=== PATIENT | female | born 1945 | race Caucasian/White ===

== ENCOUNTER 2021-10-02 17:53 | Emergency (ER) | payer OTHER, SELFPAY ==
--- NOTE | ~2021-10-02 | CT_ITS ---
EXAMINATION: NONCONTRAST HEAD CT NONCONTRAST MAXILLOFACIAL CT NONCONTRAST CERVICAL SPINE CT INDICATION INFORMATION: Fall. Pain. COMPARISON: None TECHNIQUE: Separate noncontrast CT examinations of the head, maxillofacial bones, and cervical spine were performed. Coronal and sagittal images were created for each examination at the technologist workstation. This CT examination was performed using dose optimization techniques as appropriate, variously including the following: *Automated exposure control *Adjustment of mA and/or kV according to patient size (this includes techniques or standardized protocols for targeted exams where dose is matched to indication/reason for exam; i.e. extremities or head) *Use of iterative reconstruction technique DLP: 1320 mGy-cm FINDINGS: Head: There is no evidence of acute intracranial hemorrhage or territorial infarction. No abnormal mass effect or midline shift is seen. Trejo to white matter differentiation is well preserved. No extra-axial fluid collections are identified. No hydrocephalus. Proportional prominence of the ventricles and sulcal spaces is consistent with mild volume loss. Patchy periventricular and deep white matter hypoattenuation is consistent with mild small vessel ischemic changes. No acute soft tissue abnormality. No calvarial fracture. The mastoid air cells are well aerated. Maxillofacial: Mild left supraorbital soft tissue swelling. No acute maxillofacial fractures are seen. The pterygoid plates are intact. Lamina papyracea are intact. The zygomatic arches are intact. The nasal bone appears intact. The orbital rims are intact. The frontal, maxillary, ethmoid, and sphenoid sinuses are well aerated. The uncinate process is normal bilaterally. The infundibula and middle meati are patent. The nasal septum deviates to the left. The mandibular heads are well-seated in the condylar fossa. The orbits demonstrate a normal appearance bilaterally. The globes are intact, and there are no suspicious findings to suggest retrobulbar hemorrhage. Cervical spine: There is anatomic alignment of the vertebral bodies and posterior elements. The atlantoaxial and atlantooccipital articulations are intact. Vertebral body heights are maintained. There is multilevel intervertebral disc space narrowing with endplate osteophyte formation and facet arthropathy. There is anterior osseous bridging. No evidence of acute fracture. No prevertebral soft tissue swelling. Visualized portions of the lung apices are unremarkable. The thyroid gland is unremarkable. CT/CT cervical spine wo con IMPRESSION: 1. No acute intracranial finding. 2. Left supraorbital soft tissue swelling. No acute maxillofacial fracture. 3. No fracture or malalignment of the cervical spine. Moderate degenerative changes throughout.
[2021-10-02 19:02] VITALS: BP 107/59; PULSE 78; RESP 18; TEMP 36.8; O2SAT 96; BMI 30.2
[2021-10-02] MEDS: Acetaminophen Oral Liquid 650 MG/20.3 ML SOLUTION PO (19:09)
--- NOTE | 2021-10-02 22:50 | ED.FALL ---
HPI - Fall General Chief Complaint: Fall Stated Complaint: Fall/neck pain head lac Time Seen by Provider: 10/02/21 22:41 Source: patient Mode of arrival: ambulatory History of Present Illness HPI Narrative: 76-year-old female presents after slipping and falling in the shower striking her left forehead and complains of headache and neck pain but denies blood thinners and denies any loss of consciousness. She denies feeling short of breath or having chest pain / palpitations prior to the event. Related Data Allergies Allergy/AdvReac Type Severity Reaction Status Date / Time aspirin [ASA] Allergy Swelling Verified 10/02/21 19:02 Penicillins Allergy Swelling Verified 10/02/21 19:02 Review of Systems Review of Systems: Pertinent positives and negatives as stated in HPI and 10 point review of systems is otherwise negative. FORMERLY [facility] Past Medical History Source: nursing notes reviewed Medical History Diabetes High cholesterol Hypertension Mitral valve disorder Surgical History H/O cardiac catheterization Social History Social History Advance Directives: No Advance Directives Information Provided: Yes Physical Exam Vital Signs: Vital Signs: Last Vital Signs Temp 98.3 F 10/02/21 19:02 Pulse 78 10/02/21 19:02 Resp 18 10/02/21 19:02 BP 107/59 L 10/02/21 19:02 Pulse Ox 96 10/02/21 19:02 BMI result Body Mass Index 30.2 VITAL SIGNS: Reviewed. GENERAL: Well developed, well nourished, in no acute distress. HEAD: Normocephalic/ 6 cm hemostatic laceration to left forehead EYES: PERRLA, EOMI intact without pain, no nystagmus OROPHARYNX: no oral lesions noted, posterior pharynx clear NECK: Supple, no adenopathy, No midline cervical spine tenderness some mild tenderness on palpation of left paraspinal. LUNGS: Normal breath sounds. No adventitious sounds or accessory muscle use. SpO2<96> CARDIOVASCULAR: Regular rate and rhythm without noted murmurs ABDOMEN: Soft, non-tender, non-distended with bowel sounds. BACK: no step-offs noted no midline vertebral tenderness. MUSCULOSKELETAL: No tenderness, deformities, or effusions noted on gross inspection. EXTREMITIES: No cyanosis, clubbing or edema. SKIN: Inspection of the skin reveals no rashes NEUROLOGIC: Alert and oriented x 4. Baseline tremor, strength and sensation to light touch were grossly intact x 4. Course Course Course Narrative: 76-year-old female with mechanical fall, will image head/ face / neck, patient will receive Tdap,, will receive analgesics, and then the laceration will be repaired and patient will be discharged home. Review of all imaging negative for acute findings and repair of laceration with 9 sutures without complications. Procedures Laceration Laceration 1: Site: face Side (If applicable): left Size (cm): 6 Description: linear, flap and clean Depth: simple, single layer Local Anesthetic: lidocaine 2% and with epi Amount of anesthesia used (mL): 3 Pre-repair: wound explored, irrigated extensively and deep structures intact Skin layer closed with: nylon Size (cm): 4-0 Number of sutures: 9 Technique: simple, interrupted Discharge Plan Discharge Clinical Impression: Fall, Laceration of forehead Patient Disposition: Home, Self-Care Instructions: Care For Your Stitches (ED), Fall Prevention for Older Adults (ED), Facial Laceration (ED) Additional Instructions: 1. Reanude todos los medicamentos caseros seg?n lo prescrito. 2. En 24 horas puede quitar el vendaje y limpiar el ?ramandeep suavemente con agua y jab?n, secar y volver a aplicar el irina?ento antibi?eulalia. 3. Puede esperar que tenga muchos hematomas alrededor del baron con hinchaz?n continua, latoya sam los pr?ximos 3-4 d?as esto mejorar? gradualmente, aunque cambiar? de color. 4. Lee Ann un seguimiento con gallego proveedor de atenci?n primaria en 5 d?as para retirar la sutura. O puede volver a la krystle de emergencias. 5. Tylenol e ibuprofeno de venta yara seg?n sea necesario para controlar el dolor. Regrese a la krystle de emergencias por un empeoramiento amaya de los s?ntomas. Referrals: Bria Hi [Primary Care Provider] - 2 days ( mechanical fall in shower, 6 cm laceration with 9 sutures will need removed in [address] imaging negative) Print Language: Welsh
[2021-10-02] MEDS: Lidocaine HCl 2%/Epi 1:100,000 20 ML VIAL INFILTRATI (23:14)
[2021-10-02] MEDS: Diphth,Pertus(ACell),Tet Adult 0.5 ML SYRINGE IM (23:14)
== END 2021-10-03 00:46 | disposition home or self-care (01) ==
PROVIDERS: Emergency Provider Student in an Organized Health Care Education/Training Program; PCP Nurse Practitioner
DX: S01.81XA Laceration without foreign body of other part of head, initial encounter (principal); E11.9 Type 2 diabetes mellitus without complications; I10 Essential (primary) hypertension; W18.2XXA Fall in (into) shower or empty bathtub, initial encounter; Y93.E1 Activity, personal bathing and showering; Y92.89 Other specified places as the place of occurrence of the external cause; Y99.9 Unspecified external cause status
CPT/HCPCS: 12014; 70450; 70486; 72125; 90471; 90715; 99283; 99284

== ENCOUNTER → 2022-05-31 11:08 | Outpatient (BNVA) | payer OTHER, SELFPAY | PROVIDERS: PCP Nurse Practitioner; Visit Provider Orthopaedic Surgery | DX: M54.16 Radiculopathy, lumbar region (principal); R10.32 Left lower quadrant pain | CPT/HCPCS: 99202 ==

== ENCOUNTER → 2022-06-08 13:05 | Outpatient (BNVA) | payer OTHER, SELFPAY | PROVIDERS: PCP Nurse Practitioner; Visit Provider Nurse Practitioner Family | DX: M47.816 Spondylosis without myelopathy or radiculopathy, lumbar region (principal); M53.3 Sacrococcygeal disorders, not elsewhere classified | CPT/HCPCS: 99202 ==

== ENCOUNTER 2022-06-28 16:13 | Outpatient (REF) | payer OTHER, SELFPAY ==
--- NOTE | ~2022-06-28 | MR_ITS ---
EXAMINATION: MR LUMBAR SPINE WITHOUT CONTRAST CLINICAL INFORMATION: Lumbar radiculopathy. COMPARISON: No relevant prior imaging. TECHNIQUE: MRI of the lumbar spine was obtained using routine sequences without contrast. FINDINGS: There is a slight grade 1 retrolisthesis of L1 on L2 and L2 on L3. Alignment is otherwise normal. Vertebral heights are preserved. No acute bone marrow signal changes. There is slight loss of intervertebral disc height and T2 signal intensity at multiple levels related to disc degeneration. The tip of the conus medullaris is located at L1. No mass effect on the conus. Visualized distal cord signal intensity is normal. At T12-L1 there is a slightly bulging disc. Bilateral facet degenerative change. No canal stenosis. No mass effect on traversing or foraminal nerve roots. At L1-L2 there is a diffusely bulging disc. Bilateral facet degenerative change. No canal stenosis. No mass effect on the traversing or foraminal nerve roots. At L2-L3 there is a diffusely bulging disc. Bilateral facet degenerative change. Mild to moderate canal stenosis. No mass effect on the traversing or foraminal nerve roots. At L3-L4 there is a small central protrusion superimposed upon a bulging disc. Bilateral facet degenerative change. Mild/moderate canal stenosis. No mass effect on the traversing or foraminal nerve roots. At L4-L5 there is a central annular fissure associated with a diffusely bulging disc. Bilateral facet degenerative change. Mild to moderate canal stenosis. Subarticular zone narrowing causes abutment and possible compression of both traversing L5 nerve roots. No foraminal nerve root compression. At L5-S1 there is an asymmetrically bulging disc to the left. Bilateral facet degenerative change. No canal stenosis. No mass effect on the traversing or foraminal nerve roots. Limited visualization of the retroperitoneal anatomy reveals no abnormal finding. Psoas and paraspinal muscle groups are symmetric. MR/MR lumbar spine wo con IMPRESSION: There is multilevel degenerative spondylosis of the lumbar spine. There is mild to moderate canal stenosis at the level of and L2-L3, L3-L4, and L4-L5. Subarticular zone narrowing at L4-L5 causes abutment and possible compression of both traversing L5 nerve roots. Otherwise no substantial mass effect on the traversing or foraminal nerve roots elsewhere within the lumbar spine.
== END 2022-06-28 16:14 | disposition home or self-care (01) ==
LOC: HO.MRI 16:13
PROVIDERS: Visit Provider Orthopaedic Surgery
DX: M54.16 Radiculopathy, lumbar region (principal)
CPT/HCPCS: 72148

== ENCOUNTER → 2022-07-09 10:31 | Outpatient (BNVA) | payer OTHER, SELFPAY | PROVIDERS: PCP Nurse Practitioner; Visit Provider Anesthesiology | DX: M47.816 Spondylosis without myelopathy or radiculopathy, lumbar region (principal); M53.3 Sacrococcygeal disorders, not elsewhere classified | CPT/HCPCS: Q3014 ==

== ENCOUNTER 2022-08-03 12:44 | Outpatient (REF) | payer OTHER, SELFPAY ==
--- NOTE | ~2022-08-03 | US_ITS ---
EXAMINATION: US RETROPERITONEAL LIMITED (RENAL ONLY) CLINICAL INFORMATION: Chronic kidney disease, stage 3a. COMPARISON: None TECHNIQUE: Real-time imaging of the kidneys. FINDINGS: RIGHT KIDNEY: 10.8 x 4.3 x 5.7 cm (SAG x AP x TRV). The kidney is normal in size, contour, and echogenicity. Renal cortical thickness is normal. No calculi or focal parenchymal lesions. No hydronephrosis. LEFT KIDNEY: 11.7 x 4.6 x 4.8 cm (SAG x AP x TRV). The kidney is normal in size, contour, and echogenicity. Renal cortical thickness is normal. No calculi or focal parenchymal lesions. No hydronephrosis. There is mild pelvic fullness. ADDITIONAL FINDINGS: There is a small splenule adjacent to the spleen measuring 1.1 x 1.0 x 1.3 cm. US/US renal BI IMPRESSION: Mild pelvic fullness left kidney. Otherwise unremarkable renal ultrasound. Incidental finding of a small splenule adjacent to the spleen.
== END 2022-08-03 12:45 | disposition home or self-care (01) ==
LOC: HO.US 12:44
PROVIDERS: Visit Provider Internal Medicine Hypertension Specialist
DX: N18.31 Chronic kidney disease, stage 3a (principal)
CPT/HCPCS: 76775

== ENCOUNTER 2022-08-23 12:24 | Outpatient (REF) | payer OTHER, SELFPAY ==
--- NOTE | ~2022-08-23 | US_ITS ---
EXAMINATION: US THYROID CLINICAL INFORMATION: Nontoxic multinodular goiter COMPARISON: None TECHNIQUE: Linear transducer grayscale and color Doppler examination with attention to the region of the thyroid. FINDINGS: SIZE: Measurements of the thyroid lobes and nodules are given in sagittal, anteroposterior and transverse dimensions respectively. Right Thyroid Lobe: 5.1 x 1.6 x 1.3 cm, volume 5.7 mL. Parenchyma: The gland echotexture is homogeneous. Thyroid vascularity is normal. Left Thyroid Lobe: 4.3 x 1.5 x 1.8 cm, volume 6.2 mL. Parenchyma: The gland echotexture is heterogeneous. Thyroid vascularity is normal. Isthmus: 0.2 cm in maximum AP dimension. Estimated total number of nodules greater than or equal to 1 cm: 2. 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 Location: Right mid. Size: 0.6 x 0.5 x 0.5 cm, volume 0.04 mL. Nodule characteristics: Composition: Cystic(0). ACR TI-RADS total points: 0 ACR TI-RADS category: 1 2. Location: Left upper. Size: 0.7 x 0.4 x 0.6 cm, volume 0.09 mL. Nodule characteristics: Composition: Solid/almost completely solid (2). Echogenicity: Hypoechoic (2). Shape: Not taller than wide (0). Margins: Smooth (0). Echogenic Foci: None (0). ACR TI-RADS total points: 4 ACR TI-RADS category: 4 3. Location: Left midpole. Size: 1.2 x 1.2 x 1.6 cm, volume 1.3 mL. Nodule characteristics: Composition: Solid/almost completely solid (2). Echogenicity: Hypoechoic (2). Shape: Not taller than wide (0). Margins: Smooth (0). Echogenic Foci: None (0). ACR TI-RADS total points: 4 ACR TI-RADS category: 4 4. Location: Left lower pole. Size: 1.2 x 0.8 x 1.6 cm, volume 0.8 mL. Nodule characteristics: Composition: Solid/almost completely solid (2). Echogenicity: Hypoechoic (2). Shape: Not taller than wide (0). Margins: Smooth (0). Echogenic Foci: None (0). ACR TI-RADS total points: 4 ACR TI-RADS category: 4 NODES: No lymphadenopathy is seen in the tissue surrounding the thyroid gland. US/US thyroid IMPRESSION: Bilateral thyroid nodules. According to TI RADS criteria, ultrasound follow-up in one, 2, 3 and 5 years recommended. ACR TI-RADS RECOMMENDATION REFERENCE: Ultrasound-guided fine-needle aspiration, followup ultrasound, no further follow up. * TR1 (0 point) and TR 2 (2 points): No FNA or follow up. * TR3 (3 points): FNA if more than or equal to 2.5 cm in maximum dimension, followup ultrasound in 1, 3 and 5 years if 1.5 to 2.4 cm in maximum dimension. * TR4 (4-6 points): FNA if more than or equal to 1.5 cm in maximum dimension, followup ultrasound in 1, 2, 3 and 5 years if 1 to 1.4 cm in maximum dimension. * TR5 (more than or equal to 7 points): FNA if more than or equal to 1 cm in maximum dimension, followup ultrasound every year for 5 years if 0.5 to 0.9 cm in maximum dimension. * TR3, TR4 or TR5 nodules that are below the size threshold for followup receive no follow up.
== END 2022-08-23 12:25 | disposition home or self-care (01) ==
LOC: HO.US 12:24
PROVIDERS: Visit Provider General Practice
DX: R93.89 Abnormal findings on diagnostic imaging of other specified body structures (principal)
CPT/HCPCS: 76536

== ENCOUNTER 2022-08-24 05:44 | Day surgery (SDC) | payer OTHER, SELFPAY ==
[2022-08-20 14:56] VITALS: BMI 31.8
--- NOTE | 2022-08-23 11:49 | P.CONAN_ITS ---
Documented by User: Marla Rangel NP 08/23/22 12:28 HPI - Anesthesia Eval Consult details Narrative: 77yo F for Left Transforaminal Epidural Steroid Injection L4,L5 & L5-S1 s/p AVR 02/2022. Last seen by cardiology in office 05/2022. Clinically stable. Pt reported L side chest pain that was present prior to AVR. Per Dr Suazo doubt CP is cardiac given recent cardiac cath in 2020. Most likely msk. Will continue to follow clinically. FORMERLY [facility] Active Problems Active Problems: All Active Problems (Updated 06/08/22 @ 13:50 by Danelle Park NP) Sacroiliac joint pain (Acute) Spondylosis of lumbar spine (Acute) Lumbar radiculopathy (Acute) Past Medical History Medical History Aortic stenosis Depression Diabetes Hepatitis B High cholesterol Hypertension Hypothyroid Surgical History Surgical History H/O cardiac catheterization S/P AVR (~02/2022) Social History Social History Patient Tobacco Use Status: Never used Tobacco Use of substances other than those prescribed or required for medical reasons: No Are you DNR?: No Advance Directives: No Advance Directives Information Provided: Yes Meds Allergies Allergy/AdvReac Type Severity Reaction Status Date / Time aspirin [ASA] Allergy Swelling Verified 06/08/22 13:15 heparin Allergy Unknown Verified 06/08/22 13:15 Penicillins Allergy Swelling Verified 06/08/22 13:15 Home Medications Medication Instructions Recorded Confirmed Last Taken Type duloxetine 30 mg capsule,delayed 30 mg PO DAILY 05/31/22 06/08/22 Unknown History release gabapentin 100 mg capsule 100 mg PO TID 05/31/22 06/08/22 Unknown History insulin glargine 100 unit/mL (3 unit subcut 05/31/22 06/08/22 Unknown History mL) subcutaneous pen (Lantus Solostar U-100 Insulin) metoprolol tartrate 50 mg tablet 50 mg PO BID 05/31/22 06/08/22 Unknown History pen needle, diabetic 32 gauge x #50 ea 05/31/22 Unknown History (UltiCare Pen Needle) hydroxyzine HCl 10 mg tablet 10 mg PO BID 06/08/22 06/08/22 Unknown History torsemide 20 mg tablet 20 mg PO DAILY 06/08/22 06/08/22 Unknown History tramadol 50 mg tablet 50 mg PO BID PRN 06/08/22 06/08/22 Unknown History Exam Exam Date and Time: August 23, 2022 1149 Height,Weight and Vital Signs: Height 5 ft 2 in Weight 78.925 kg Narrative Narrative: EKG 02/2022 SR with PACs @ [address] and T wave abn No signif change c/w previous ECHO 03/2022 1. Nml LV function 2. LVEF 60-65% 3. Paradoxical septal motion c/w post-op status 4. Peak/mean gradient across the valve is 21.99mmHg/11.46mmHg 5. Normally functioning aortic bioprosthetic valve tissue valve 21mm valve 6. Mild to mod mitral regurg present 7. Mild mitral stenosis 8. Moderate tricuspid regurg Cardiac Cath 2020 No obstructive epicardial CAD Nml LVEDP Moderate aortic stenosis Assessment and Plan Assessment Anesthesia Assessment: Chart Reviewed Documented by User: Yanely Rosas MD 08/24/22 08:33 PMFSH Active Problems Active Problems: All Active Problems (Updated 06/08/22 @ 13:50 by Danelle Park NP) Sacroiliac joint pain (Acute) Spondylosis of lumbar spine (Acute) Lumbar radiculopathy (Acute) Carotid artery disease H/o CHF S/p bioprosthetic AV replacement. No blood thinners for 2 months DEnies FLORENTINO Past Medical History Medical History Aortic stenosis Depression Diabetes Hepatitis B High cholesterol Hypertension Hypothyroid Family History Family history of problems with anesthesia: No Surgical History Surgical History H/O cardiac catheterization S/P AVR (~02/2022) History of Problems with Anesthesia: Yes (Confusion) Social History Social History Patient Tobacco Use Status: Never used Tobacco Use of substances other than those prescribed or required for medical reasons: No Are you DNR?: No Advance Directives: No Advance Directives Information Provided: Yes Meds Allergies Allergy/AdvReac Type Severity Reaction Status Date / Time aspirin [ASA] Allergy Swelling Verified 06/08/22 13:15 heparin Allergy Unknown Verified 06/08/22 13:15 Penicillins Allergy Swelling Verified 06/08/22 13:15 Home Medications Medication Instructions Recorded Confirmed Last Taken Type duloxetine 30 mg capsule,delayed 30 mg PO DAILY 05/31/22 06/08/22 Unknown History release gabapentin 100 mg capsule 100 mg PO TID 05/31/22 06/08/22 Unknown History insulin glargine 100 unit/mL (3 unit subcut 05/31/22 06/08/22 Unknown History mL) subcutaneous pen (Lantus Solostar U-100 Insulin) metoprolol tartrate 50 mg tablet 50 mg PO BID 05/31/22 06/08/22 Unknown History pen needle, diabetic 32 gauge x #50 ea 05/31/22 Unknown History (UltiCare Pen Needle) hydroxyzine HCl 10 mg tablet 10 mg PO BID 06/08/22 06/08/22 Unknown History torsemide 20 mg tablet 20 mg PO DAILY 06/08/22 06/08/22 Unknown History tramadol 50 mg tablet 50 mg PO BID PRN 06/08/22 06/08/22 Unknown History Exam Height,Weight and Vital Signs: Height 5 ft 2 in Weight 78.925 kg Vital Signs Temp Pulse Resp BP Pulse Ox O2 Del Method 08/24/22 06:31 97.4 F 74 18 142/71 H 98 Room Air Pertinent Lab Results Pertinent Lab Results: Lab Results 08/24/22 Range/Units 06:15 POC Glucose 115 (60-115) mg/dL Airway Mallampati Class: II TM Dist: >3cm Neck ROM: Full Partial: Upper and Lower Loose/Missing/Broken Teeth: Yes (Broken teeth) Heart: RRR ?systolic murmur Lungs: CTAB Assessment and Plan Final Anesthetic Review Family History of Problems with Anesthesia: No History of Problems with Anesthesia: Yes (Confusion) NPO: Yes ASA Class: III Final Preanesthetic Review: No Changes in Pt Med Stat, Meds/Allgs Chart Reviewed, Consent Obtained/Reviewed and Anes Risks/Benef Reviewed Patient Risk: Intermediate Procedure Risk: Low Assessment/Block/Sedation in SS: Assess/Block/Sedation-SS Anesthetic Plan Anesthetic Plan: MAC: Disposition: Standard PACU
--- NOTE | ~2022-08-24 | FL_ITS ---
EXAMINATION: XR FLUOROSCOPY WITH IMAGES CLINICAL INFORMATION: Back pain. Transforaminal epidural. COMPARISON: MR lumbar spine 06/28/2022 TECHNIQUE: Fluoroscopy performed by Dr. Sergio Latham. Fluoroscopy time: 1.3 minutes. Cumulative Dose: 30.7 mGy. DAP: 8.39 Gycm2. Images: 2. FINDINGS: There are spinal needles overlying the outer left L4, and L5 neural foramen. There is contrast seen in the respective nerve sheaths as well as the outer L3 nerve sheath. Some early transforaminal epidural extension is suggested. No visible vascular communication. There are degenerative changes with multilevel vertebral spurring. FL/FL guidance in OR IMPRESSION: Fluoroscopy for pain management procedures.
[2022-08-24 06:19] LABS: Glucose, Whole Blood 115 mg/dL (60-115)
[2022-08-24 06:22] VITALS: BMI 32.9
[2022-08-24 06:30] VITALS: BMI 32.9
[2022-08-24 06:31] VITALS: BP 142/71; PULSE 74; RESP 18; TEMP 36.3; O2SAT 98
[2022-08-24] MEDS: Lactated Ringers 1,000 ML 100 ML IVCONT (07:12)
--- NOTE | 2022-08-24 07:38 | P.HPSUR_ITS ---
Pre-Procedural Eval Section A Date of Service: 08/24/22 The patient is an INPATIENT: No Changes since office visit: Yes Patient answered all questions The History & Physical has been completed within 30 days and I have reviewed it.: No Section B Chief Complaint: Intervertebral disc disorders with radiculopathy, Details of Present Illness: as above Relevant Family History (Specify if Yes): No Relevant Social History: None Present Medications: None Medical History: No relevant PMH History of Previous Operations: No relevant previous surgery Allergies: Allergies Allergy/AdvReac Type Severity Reaction Status Date / Time aspirin [ASA] Allergy Swelling Verified 06/08/22 13:15 heparin Allergy Unknown Verified 06/08/22 13:15 Penicillins Allergy Swelling Verified 06/08/22 13:15 Review of Systems Sugical H&P ROS: Negative: Constitution, Respiratory, Neurological, Psychiatric, Allergic/Immunologic, Gastrointestinal, Genitourinary, Musculoskeletal, Integum entary, Endocrine and Eyes/Ears/Nose/Throat and Yes, Specify: Cardiovascular (CAD, S/p CABG, ) and Hem-Onc (reports stopping all anticoags 2 months ago) Exam Surgical H&P Exam: Normal: HEENT, Normal: Heart, Normal: Lungs, Normal: Extremities, Normal: Abdomen, Normal: Skin and Normal: Neurological Plan Diagnosis/Plan: Unchanged I have reviewed the history and physical and performed a pertinent physical examination on my patient. No changes have occurred unless specified.
--- NOTE | 2022-08-24 07:41 | W.PM.OPN ---
Operative Note Operative Note Date of Service: 08/24/22 Narrative: TRANSFORAMINAL EPIDURAL STEROID INJECTION L5-S1 AND L4-5 ON THE LEFT. THE PATIENT CAME TO THE OPERATING ROOM AFTER OBTAINING INFORMED CONSENT. THE RISKS OF THE PROCEDURE WERE DELINEATED THE RISK OF BLEEDING INFECTION PERIPHERAL NERVE DAMAGE EPIDURAL HEMATOMA EPIDURAL ABSCESS AND OTHER UNSPECIFIED RISKS. THE PATIENT WAS POSITIONED PRONE ON THE OPERATING TABLE [employer] MONITORS WERE APPLIED, PATIENT WAS NOT SEDATED. THE PATIENTS H/O ANTICOAGULANTS ADMINISTRATION WAS EXPLORED BEFORE THE PROCEDURE AND THE PATIENT STATED THAT ALL ANTIOCOAGULANTS INCLUDING BABY ASPIRIN WERE STOPPED 2 MONTHS AGO. THE CONVERSATION WAS INTERPRETED BY [facility]CHNICAL SERVICES LIBRARIAN. ? TIME-OUT WAS OBTAINED DELINEATING CORRECT SIDE AND SITE OF THE PROCEDURE, PATIENT NAME AND DATE OF , NEED OF THE ANTIBIOTIC, RISK OF FIRE. tHE PATIENT WAS POSITIONED PRONE ON THE OR TABLE WITH THE PILLOW UNDER HER ABDOMEN. ? LUMBAR AREA OF THE PATIENT WAS PREPPED WITH CHLORAPREP AND DRAPED WITH STERILE UTILITY TOWELS, C-ARM WAS BROUGHT OVER THE OPERATING FIELD AND SQ PICTURE OF L4 VERTEBRA WAS DELINEATED ON THE SCREEN. C-ARM WAS TILTED 25? TO THE left SIDE AND PICTURE OF THE left PEDICLE L4 VERTEBRA WAS OBTAINED ON THE SCREEN. 3 MM BELOW THE LOWEST POINT OF THE PEDICLE PROJECTION TO THE SKIN WAS CHOSEN A STARTING POINT OF THE INJECTION. 22 GAUGE 5 IN SPINAL NEEDLE WAS INSERTED THROUGH THE SKIN AND STARTED TO ADVANCE TO THE FORAMINA IN ANTERIOR POSTERIOR, OBLIQUE AND LATERAL VIEWS IN TUNNEL VISION FASHION. WHEN ON LATERAL VIEW THE NEEDLE ENTERED THE MOST POSTERIOR AND SUPERIOR PORTION OF THE FORAMINA INJECTION OF THE CONTRAST PERFORMED DELINEATING ANTERIOR EPIDURAL SPREAD OF THE CONTRAST. HOWEVER WHEN WE SWITCHED THE C-ARM TO THE ANTERIOR POSTERIOR VIEW IN ADDED MORE CONTRAST WE WERE ABLE TO SEE VASCULAR RUNOFF. THE NEEDLE WAS REMOVED AND PRESSURE WAS APPLIED. AFTER THAT C-ARM WAS RETURNED TO OBLIQUE IMAGE AND NOW THE UPPER PORTION OF PATIENT SUPERIOR ARTICULAR PROCESS OF L5 WAS CHOSEN THE TARGET OF THE INJECTION. INJECTION OF THE LIDOCAINE 2% WAS PERFORMED IN THE PROJECTION OF THE SUPERIOR ARTICULAR PROCESS OF L5 PORTION TO THE SKIN AND AFTER THAT 22 GAUGE 5 IN NEEDLE WAS INSERTED THROUGH THE SKIN WHEAL AND ADVANCED TO WERE THE SUPERIOR ARTICULAR PROCESS. WHEN NEEDLE GENTLY CONTACTED THE BONE IT WAS DEVIATED 1ST MORE LATERALLY AND ANTERIORLY AND THAN MORE MEDIALLY AND ANTERIORLY TO TAKE THE NEEDLE AROUND THE SUPERIOR ARTICULAR PROCESS OF L5. WHEN NEEDLE ON ANTERIOR POSTERIOR VIEW ENTERED THE PROJECTION OF THE SPINAL COLUMN INJECTION OF THE CONTRAST WAS PERFORMED DELINEATING EPIDURAL SPREAD OF THE CONTRAST. AFTER THAT 3 CC OF LIDOCAINE 1% MIXED WITH KENALOG 20 MG WAS INJECTED INTO THAT AREA. THE NEEDLE WAS REMOVED AND ATTENTION WAS CONCENTRATED ON L5-S1 INTERVAL WHERE THE PROCEDURE WAS PERFORMED IN THE SAME VERY FASHION AIMING AT SUPERIOR ARTICULAR PROCESS OF S1. AGAIN THE SPREAD OF THE CONTRAST DEMONSTRATED EPIDURAL AND PERINEURAL SPREAD, THERE WERE NO INTRAVASCULAR AND NO INTRATHECAL SPREAD OF THE CONTRAST. AFTER THAT TREATMENT SOLUTION CONTAINING THREE MLS OF PRESERVATIVE-FREE LIDOCAINE 1% MIXED WITH KENALOG 20 MG WAS INJECTED INTO THE NEEDLE. UPON COMPLETION OF THE INJECTION THE NEEDLE WAS FLUSHED WITH THE CONTRAST AND REMOVED . ? PATIENT TOLERATED PROCEDURE WELL SHE WAS AWAKEN TAKEN OUTSIDE OF THE OPERATING ROOM TO PACU WHERE SHE RECOVERED UNEVENTFULLY.
--- NOTE | 2022-08-24 07:49 | P.BOP_ITS ---
Brief Operative Note Date of Service: 08/24/22 Pre-op diagnosis: DISC DEGENERATION LUMBAR WITH RADICULOPATHY Post-op diagnosis: same Procedure: TFESI LEFT L4-L5 AND L5-S1 Surgeon: Sergio Latham MD Anesthesia: MAC Was an Marketing Operations Intern used for this Procedure?: No Estimated blood loss (mL): 0 Condition: stable Disposition: PACU
[2022-08-24 08:36] VITALS: BP 115/55; PULSE 70; RESP 16; TEMP 36.4; O2SAT 98
[2022-08-24 08:51] VITALS: BP 113/48; PULSE 64; RESP 16; TEMP 36.1; O2SAT 97
== END 2022-08-24 09:33 | disposition home or self-care (01) ==
PROVIDERS: PCP General Practice; Visit Provider Anesthesiology
PROC: (CPT 64483; principal; 2022-08-24 07:30)
DX: M51.16 Intervertebral disc disorders with radiculopathy, lumbar region (principal); M47.816 Spondylosis without myelopathy or radiculopathy, lumbar region; M53.3 Sacrococcygeal disorders, not elsewhere classified; I10 Essential (primary) hypertension; E11.9 Type 2 diabetes mellitus without complications; E78.5 Hyperlipidemia, unspecified; I05.9 Rheumatic mitral valve disease, unspecified; I35.0 Nonrheumatic aortic (valve) stenosis; Z95.2 Presence of prosthetic heart valve; Z79.4 Long term (current) use of insulin; Z79.899 Other long term (current) drug therapy; Z88.0 Allergy status to penicillin; Z88.8 Allergy status to other drugs, medicaments and biological substances
CPT/HCPCS: 64483; 64484; 82947; J2250; J2795; J3010; J3300; Q9965

== ENCOUNTER → 2022-09-26 10:04 | Outpatient (BNVA) | payer OTHER, SELFPAY | PROVIDERS: PCP General Practice; Visit Provider Anesthesiology | DX: M47.816 Spondylosis without myelopathy or radiculopathy, lumbar region (principal); M53.3 Sacrococcygeal disorders, not elsewhere classified; I25.10 Atherosclerotic heart disease of native coronary artery without angina pectoris | CPT/HCPCS: 99212 ==

== ENCOUNTER 2023-02-24 09:54 | Emergency (ER) | payer OTHER, SELFPAY ==
--- NOTE | ~2023-02-24 | CT_ITS ---
EXAMINATION: CT HEAD WITHOUT CONTRAST CLINICAL INFORMATION: Hallucination, confusion COMPARISON: None available. TECHNIQUE: Contiguous axial imaging was performed from the skull base to vertex without intravenous administration of contrast. This CT examination was performed using dose optimization techniques as appropriate, variously including the following: *Automated exposure control *Adjustment of mA and/or kV according to patient size (this includes techniques or standardized protocols for targeted exams where dose is matched to indication/reason for exam; i.e. extremities or head) *Use of iterative reconstruction technique DLP: 731 mGy-cm FINDINGS: There is no evidence of acute intracranial hemorrhage or edematous territorial infarction. No abnormal mass effect or midline shift is seen. Trejo to white matter differentiation is well preserved. No extra-axial fluid collections are identified. Commensurate prominence of the ventricles and sulci is compatible with generalized parenchymal volume loss. There is periventricular and subcortical white matter hypoattenuation, most likely representing microangiopathic disease. No acute calvarial fracture.. Paranasal sinuses and mastoid air cells are well-aerated. CT/CT head/brain wo IV con IMPRESSION: No CT evidence of acute intracranial process.
[2023-02-24 10:05] VITALS: BP 164/85; PULSE 95; RESP 18; O2SAT 96; BMI 28.3
--- NOTE | 2023-02-24 10:08 | ED_ITS ---
HPI - Psych General Chief Complaint: Psychiatric Symptoms Stated Complaint: DEPRESSION,VISUAL ROXANNE PER EMS Time Seen by Provider: 02/24/23 09:55 Source: patient, EMS, RN notes reviewed and old records reviewed Mode of arrival: EMS Limitations: altered mental status History of Present Illness HPI Narrative: 77-year-old Luxembourgish-speaking female with a history of chronic with lumbar radiculopathy, aortic stenosis s/p aortic valve replacement 03/11, depression, diabetes, HTN, HLD, hypothyroidism, CAD s/p cardiac cath who presents to the ER via EMS from home for evaluation of depression and visual hallucinations of her who 2 years ago. Patient is not able to provide any meaningful history. She states at home this morning her fell down and she was unable to get him up on her own. Patient's niece Kiki who she lives with provides history. She states the patient was in her usual state of health yesterday. This morning she woke up and the patient had come to her room and was crying. She was saying she was seeing her and he needed help getting off the floor. When Kiki walked her back to her bedroom, her bed was found covered in urine. Kiki reports this is not normal for her. She states the patient will sometimes mention the being in the room or seeing him in the corner but she has never been tearful about it or fixed on it. She denies a history of dementia. MD complaint: feels depressed and hallucinations Onset (ago): hour(s) Duration: changing over time History of same: Yes Relieving factors: none Exacerbating factors: none Associated psychiatric symptoms: depression and visual hallucinations Associated symptoms: other (urinary incontinence) Treatments prior to arrival: none Related Data Home Medications Medication Instructions Recorded Confirmed duloxetine 30 mg capsule,delayed 30 mg PO DAILY 05/31/22 06/08/22 release gabapentin 100 mg capsule 100 mg PO TID 05/31/22 06/08/22 insulin glargine 100 unit/mL (3 unit subcut 05/31/22 06/08/22 mL) subcutaneous pen (Lantus Solostar U-100 Insulin) metoprolol tartrate 50 mg tablet 50 mg PO BID 05/31/22 06/08/22 pen needle, diabetic 32 gauge x #50 ea 05/31/22 (UltiCare Pen Needle) hydroxyzine HCl 10 mg tablet 10 mg PO BID 06/08/22 06/08/22 torsemide 20 mg tablet 20 mg PO DAILY 06/08/22 06/08/22 tramadol 50 mg tablet 50 mg PO BID PRN 06/08/22 06/08/22 Allergies Allergy/AdvReac Type Severity Reaction Status Date / Time aspirin [ASA] Allergy Swelling Verified 09/26/22 10:25 heparin Allergy Unknown Verified 09/26/22 10:25 Penicillins Allergy Swelling Verified 09/26/22 10:25 Review of Systems 2 Review of Systems: Yes all other systems are reviewed and are negative [facility] Past Medical History Medical History Aortic stenosis Depression Diabetes Hepatitis B High cholesterol Hypertension Hypothyroid Surgical History H/O cardiac catheterization S/P AVR (~02/2022) Social History Social History Patient Tobacco Use Status: Never used Tobacco Advance Directives: No Advance Directives Information Provided: Yes Physical Exam Vital Signs: Vital Signs: Last Vital Signs Temp 97 F 02/24/23 15:29 Pulse 76 02/24/23 15:29 Resp 15 02/24/23 15:29 BP 132/66 02/24/23 15:29 Pulse Ox 95 02/24/23 15:29 O2 Del Method Room Air 02/24/23 15:29 BMI result Body Mass Index 28.3 Appearance: Alert. Oriented X1. No acute distress. Head: normocephalic, atraumatic. Eyes: Pupils equal, round and reactive to light. ENT: Pharynx normal. No tonsillar swelling or exudate. Neck: Normal inspection. Neck supple. CVS: Normal heart rate and rhythm. Pulses normal. Respiratory: No respiratory distress. Breath sounds normal. Abdomen: Soft and nontender. +BS x4 Skin: Skin warm and dry. Normal skin color. Normal skin turgor. No rashes. Extremities: No lower extremity edema. No joint swelling. Neuro/psych: Oriented X 1. No motor deficit. No sensory deficit. CN II-XII intact. Confused, did not recognize her niece. Course Reevaluation(s) Reevaluation #1: Patient's lab workup was unremarkable. She has a mild anemia. She has normal renal function. Hyperglycemia improving. No UTI on urinalysis. Will proceed for further evaluation with CT head. Time: 12:19 Reevaluation #2: patient much more calm and cooperative. She recognizes her niece and seems to be back to her baseline. She is no longer having active visual hallucinations. Case was discussed with Dr. Antony from Psychiatry. He is unable to evaluate her in the emergency department today. Given the history this is an acute on likely chronic phenomenon for this patient. She is currently medically cleared. It is unclear whether or not she will have recurrent exacerbations and behavioral upset by her hallucinations. Her aj Swanson is comfortable taking her home and feels she is safe there. She would like to follow-up with psychiatry as an outpatient. We discussed return precautions Time: 15:46 Medical Decision Making Medical Decision Making MDM Narrative: 77-year-old female with a history of chronic with lumbar radiculopathy, aortic stenosis s/p aortic valve replacement 03/11, depression, diabetes, HTN, HLD, hypothyroidism, CAD s/p cardiac cath presenting to the ER for evaluation of visual hallucinations. She is a poor historian. Her luisito Swanson who she lives with states that she has mentioned seeing her in passing several times but has never been worked up or upset about it. Today she was tearful and upset. She was incontinent of urine in the bed last night which is not usual for her. There was initial concern for possible UTI triggering altered mental status and hallucinations however her urinalysis was negative. Her lab workup was unremarkable aside from diabetic hyperglycemia without evidence of DKA. This was improved with self administered insulin at home. Her CT scan of the head was unremarkable. Her EKG was unremarkable. Her other lab work was unremarkable. She is currently back to her baseline mental status, no longer actively hallucinating. Her niece is comfortable taking her home and would like to follow-up with psychiatry as an outpatient. she is stable for discharge home Differential Diagnosis Differential Diagnoses: The differential diagnosis associated with the presentation includes UTI, other acute infection, metabolic derangement, hyperglycemia, thyroid disorder, dehydration, new onset dementia, psychiatric illness, substance abuse Admission/Observation Consideration of admission/observation: Escalation of care including admission/observation considered Consult Healthcare Provider Management of the patient was discussed with: Pressed Or Blown Glass Worker case discussed with Dr. Carrington from Psychiatry Lab Data MDM Lab Attestation statement: I reviewed the patient's lab results. 02/24/23 10:47 02/24/23 10:47 Labs: Lab Results 02/24/23 02/24/23 02/24/23 Range/Units 10:47 10:47 10:47 WBC 6.9 (4.8-10.8) X10*3/uL RBC 4.00 L (4.20-5.50) X10*6/uL Hgb 10.0 L (12.0-16.0) g/dl Hct 31.8 L (37.0-47.0) % MCV 79.5 L (80.0-98.0) fL MCH 25.0 L (27.0-33.0) pg MCHC 31.4 (31.0-35.0) g/dl RDW 13.7 (11.0-16.0) % Plt Count 247 (160-400) X10*3/uL MPV 9.8 (9.4-12.3) fL Immature Gran % (Auto) 0.3 (0.0-0.4) % Neut % (Auto) 74.3 H (45-73) % Lymph % (Auto) 15.3 L (20-40) % [place] % (Auto) 6.3 (2-11) % Eos % (Auto) 3.2 (0-4) % Baso % (Auto) 0.6 (0-2) % Lymph # (Auto) 1.1 L (1.2-4.9) X10*3/uL [place] # (Auto) 0.4 (0.1-1.2) X10*3/uL Eos # (Auto) 0.2 (0.0-0.4) X10*3/uL Baso # (Auto) 0.0 (0.0-0.2) X10*3/uL Abs Immat Gran (auto) 0.02 (0.00-0.03) X10*3/uL Absolute Neuts (auto) 5.2 (2.0-8.3) x10*3/uL Absolute Nucleated RBC 0.000 (0.0-0.012) X10*3/uL Nucleated RBC % (auto) 0.0 (0.0-0.2) /100WBC Sodium 137 (135-145) mmol/L Potassium 3.7 (3.3-5.1) mmol/L Chloride 101 (96-108) mmol/L Carbon Dioxide 22 (22-29) mmol/L Anion Gap 18 (12-20) BUN 20 H (9-16) mg/dL Creatinine 0.92 (0.5-1.4) mg/dL Estim Creat Clear Calc 51.7 Estimated GFR 59 POC Glucose (60-115) mg/dL Random Glucose 340 H (60-115) mg/dL Calcium 8.9 (8.4-10.2) mg/dL Magnesium 2.1 (1.6-2.6) mg/dL Total Bilirubin 0.6 (0.0-1.0) mg/dL Direct Bilirubin 0.2 (0.0-0.5) mg/dL AST 20 (5-31) U/L ALT 17 (0-31) U/L Alkaline Phosphatase 122 H (39-117) U/L Total Protein 6.5 (6.5-8.0) g/dL Albumin 3.7 (3.5-5.0) g/dL TSH (0.32-4.0) uIU/mL Urine Color Urine Appearance Urine pH (5.0-9.0) Ur Specific [place] (1.005-1.025) Urine Protein (Neg-Trace) mg/dL Urine Glucose (UA) (Negative) mg/dL Urine Ketones (Negative) mg/dL Urine Blood (Negative) Urine Nitrite (Negative) Ur Leukocyte Esterase (Negative) Urine Opiates Screen (Not Detect) Urine Fentanyl Screen (Not Detect) Ur Barbiturates Screen (Not Detect) Ur Phencyclidine Scrn (Not Detect) Ur Amphetamines Screen (Not Detect) U Benzodiazepines Scrn (Not Detect) Urine Cocaine Screen (Not Detect) U Marijuana (THC) Screen (Not Detect) Ethyl Alcohol < 10 mg/dL COVID-19 (LATANYA) Negative (Negative) COVID-19 Clin Com See Note 02/24/23 02/24/23 02/24/23 Range/Units 10:47 11:54 11:57 WBC (4.8-10.8) X10*3/uL RBC (4.20-5.50) X10*6/uL Hgb (12.0-16.0) g/dl Hct (37.0-47.0) % MCV (80.0-98.0) fL MCH (27.0-33.0) pg MCHC (31.0-35.0) g/dl RDW (11.0-16.0) % Plt Count (160-400) X10*3/uL MPV (9.4-12.3) fL Immature Gran % (Auto) (0.0-0.4) % Neut % (Auto) (45-73) % Lymph % (Auto) (20-40) % Mingo % (Auto) (2-11) % Eos % (Auto) (0-4) % Baso % (Auto) (0-2) % Lymph # (Auto) (1.2-4.9) X10*3/uL [place] # (Auto) (0.1-1.2) X10*3/uL Eos # (Auto) (0.0-0.4) X10*3/uL Baso # (Auto) (0.0-0.2) X10*3/uL Abs Immat Gran (auto) (0.00-0.03) X10*3/uL Absolute Neuts (auto) (2.0-8.3) x10*3/uL Absolute Nucleated RBC (0.0-0.012) X10*3/uL Nucleated RBC % (auto) (0.0-0.2) /100WBC Sodium (135-145) mmol/L Potassium (3.3-5.1) mmol/L Chloride (96-108) mmol/L Carbon Dioxide (22-29) mmol/L Anion Gap (12-20) BUN (9-16) mg/dL Creatinine (0.5-1.4) mg/dL Estim Creat Clear Calc Estimated GFR POC Glucose 236 H (60-115) mg/dL Random Glucose (60-115) mg/dL Calcium (8.4-10.2) mg/dL Magnesium (1.6-2.6) mg/dL Total Bilirubin (0.0-1.0) mg/dL Direct Bilirubin (0.0-0.5) mg/dL AST (5-31) U/L ALT (0-31) U/L Alkaline Phosphatase (39-117) U/L Total Protein (6.5-8.0) g/dL Albumin (3.5-5.0) g/dL TSH 1.78 (0.32-4.0) uIU/mL Urine Color Yellow Urine Appearance Clear Urine pH 7.5 (5.0-9.0) Ur Specific [place] 1.015 (1.005-1.025) Urine Protein Negative (Neg-Trace) mg/dL Urine Glucose (UA) 500 H (Negative) mg/dL Urine Ketones Negative (Negative) mg/dL Urine Blood Negative (Negative) Urine Nitrite Negative (Negative) Ur Leukocyte Esterase Negative (Negative) Urine Opiates Screen (Not Detect) Urine Fentanyl Screen (Not Detect) Ur Barbiturates Screen (Not Detect) Ur Phencyclidine Scrn (Not Detect) Ur Amphetamines Screen (Not Detect) U Benzodiazepines Scrn (Not Detect) Urine Cocaine Screen (Not Detect) U Marijuana (THC) Screen (Not Detect) Ethyl Alcohol mg/dL COVID-19 (LATANYA) (Negative) COVID-19 Clin Com 02/24/23 02/24/23 Range/Units 11:57 15:28 WBC (4.8-10.8) X10*3/uL RBC (4.20-5.50) X10*6/uL Hgb (12.0-16.0) g/dl Hct (37.0-47.0) % MCV (80.0-98.0) fL MCH (27.0-33.0) pg MCHC (31.0-35.0) g/dl RDW (11.0-16.0) % Plt Count (160-400) X10*3/uL MPV (9.4-12.3) fL Immature Gran % (Auto) (0.0-0.4) % Neut % (Auto) (45-73) % Lymph % (Auto) (20-40) % [place]ingo % (Auto) (2-11) % Eos % (Auto) (0-4) % Baso % (Auto) (0-2) % Lymph # (Auto) (1.2-4.9) X10*3/uL [place] # (Auto) (0.1-1.2) X10*3/uL Eos # (Auto) (0.0-0.4) X10*3/uL Baso # (Auto) (0.0-0.2) X10*3/uL Abs Immat Gran (auto) (0.00-0.03) X10*3/uL Absolute Neuts (auto) (2.0-8.3) x10*3/uL Absolute Nucleated RBC (0.0-0.012) X10*3/uL Nucleated RBC % (auto) (0.0-0.2) /100WBC Sodium (135-145) mmol/L Potassium (3.3-5.1) mmol/L Chloride (96-108) mmol/L Carbon Dioxide (22-29) mmol/L Anion Gap (12-20) BUN (9-16) mg/dL Creatinine (0.5-1.4) mg/dL Estim Creat Clear Calc Estimated GFR POC Glucose 84 (60-115) mg/dL Random Glucose (60-115) mg/dL Calcium (8.4-10.2) mg/dL Magnesium (1.6-2.6) mg/dL Total Bilirubin (0.0-1.0) mg/dL Direct Bilirubin (0.0-0.5) mg/dL AST (5-31) U/L ALT (0-31) U/L Alkaline Phosphatase (39-117) U/L Total Protein (6.5-8.0) g/dL Albumin (3.5-5.0) g/dL TSH (0.32-4.0) uIU/mL Urine Color Urine Appearance Urine pH (5.0-9.0) Ur Specific [place] (1.005-1.025) Urine Protein (Neg-Trace) mg/dL Urine Glucose (UA) (Negative) mg/dL Urine Ketones (Negative) mg/dL Urine Blood (Negative) Urine Nitrite (Negative) Ur Leukocyte Esterase (Negative) Urine Opiates Screen Not Detected (Not Detect) Urine Fentanyl Screen Not Detected (Not Detect) Ur Barbiturates Screen Not Detected (Not Detect) Ur Phencyclidine Scrn Not Detected (Not Detect) Ur Amphetamines Screen Not Detected (Not Detect) U Benzodiazepines Scrn Not Detected (Not Detect) Urine Cocaine Screen Not Detected (Not Detect) U Marijuana (THC) Screen Not Detected (Not Detect) Ethyl Alcohol mg/dL COVID-19 (LATANYA) (Negative) COVID-19 Clin Com Independent Interpretation I performed an independent interpretation of an: EKG and CT Scan Interpretation: EKG with normal sinus rhythm, ventricular rate 66 beats per minute, normal MD interval, prolonged QTC 482 MS, no ST segment elevations or depressions. CT head reviewed, no obvious stroke or bleed Radiology Impression Discussion of test interpretation with radiology: I have reviewed the radiologist's reading. Radiologist Impression: CLINICAL INFORMATION: Hallucination, confusion? COMPARISON: None available. TECHNIQUE: Contiguous axial imaging was performed from the skull base to vertex without intravenous administration of contrast. This CT examination was performed using dose optimization techniques as appropriate, variously including the following: *Automated exposure control *Adjustment of mA and/or kV according to patient size (this includes techniques or standardized protocols for targeted exams where dose is matched to indication/reason for exam; i.e. extremities or head) *Use of iterative reconstruction technique DLP: 731 mGy-cm FINDINGS: There is no evidence of acute intracranial hemorrhage or edematous territorial infarction. No abnormal mass effect or midline shift is seen. Trejo to white matter differentiation is well preserved. No extra-axial fluid collections are identified. Commensurate prominence of the ventricles and sulci is compatible with generalized parenchymal volume loss. There is periventricular and subcortical white matter hypoattenuation, most likely representing microangiopathic disease. No acute calvarial fracture.. Paranasal sinuses and mastoid air cells are well-aerated. ? CT/CT head/brain wo IV con IMPRESSION: No CT evidence of acute intracranial process. Independent Historian Clinical information obtained from an independent historian. History obtained from or confirmed by: Other (niece Kiki who she lives with) External Record Review External record reviewed: Office record, Outpatient record, Prior outpatient labs and Prior outpatient radiology Prescription Management I considered prescription management with: Other (antipsychotic) Discharge Plan Discharge Clinical Impression: Visual hallucinations Patient Disposition: Home, Self-Care Instructions: Hallucinations (ED) Additional Instructions: Your lab workup today was unremarkable. Your head CT was unremarkable. Your EKG was unremarkable. Your urine test did not show any evidence of infection. Recommend following up with Psychiatry as an outpatient. Recommend following with primary care doctor as soon as possible. If you develop new or worsening symptoms call 911 or come back to the ER for further evaluation. Prescriptions: No Action (DME) pen needle, diabetic [UltiCare Pen Needle] 32 gauge x 5/32 needle See Rx Instructions .ROUTE .MEDSUPPLY Qty: 50 Rx Instructions: As directed insulin glargine [Lantus Solostar U-100 Insulin] 100 unit/mL (3 mL) insulin pen subcut duloxetine 30 mg capsule,delayed release(DR/EC) 30 mg PO DAILY metoprolol tartrate 50 mg tablet 50 mg PO BID gabapentin 100 mg capsule 100 mg PO TID hydroxyzine HCl 10 mg tablet 10 mg PO BID torsemide 20 mg tablet 20 mg PO DAILY tramadol 50 mg tablet 50 mg PO BID PRN Referrals: [facility] – [facility] [Provider Group] Josephine Romo MD [Primary Care Provider] - Omero Carrington MD [Physician] - ( Visual hallucinations)
[2023-02-24 10:51] LABS: MANUAL DIFF FLAG NO
[2023-02-24 10:53] LABS: Basophils Percent Auto 0.6 % (0-2); Eosinophils Absolute Auto 0.2 X10*3/uL (0.0-0.4); Eosinophils Percent Auto 3.2 % (0-4); Hematocrit 31.8 % (37.0-47.0); Imm Gran Abs Auto 0.02 X10*3/uL (0.00-0.03); Imm Gran Pct Auto 0.3 % (0.0-0.4); Lymphocytes Absolute Auto 1.1 X10*3/uL (1.2-4.9); Lymphocytes Percent Auto 15.3 % (20-40); Mean Corpuscular HGB Conc 31.4 g/dl (31.0-35.0); Mean Corpuscular Volume 79.5 fL (80.0-98.0); Mean Platelet Volume 9.8 fL (9.4-12.3); Monocytes Absolute Auto 0.4 X10*3/uL (0.1-1.2); Monocytes Percent Auto 6.3 % (2-11); Neutrophils Absolute Auto 5.2 x10*3/uL (2.0-8.3); Neutrophils Percent Auto 74.3 % (45-73); Platelet Count 247 X10*3/uL (160-400); Red Cell Distribution Width 13.7 % (11.0-16.0); White Blood Count 6.9 X10*3/uL (4.8-10.8)
[2023-02-24 11:07] LABS: COVID-19 Test Negative (Negative); IDNOW Serial# 6674DD1D
[2023-02-24 11:22] LABS: Alanine Aminotransferase 17 U/L (0-31); Albumin Level 3.7 g/dL (3.5-5.0); Alkaline Phosphatase 122 U/L (39-117); Anion Gap 18 (12-20); Aspartate Amino Transferase 20 U/L (5-31); Bilirubin Direct 0.2 mg/dL (0.0-0.5); Bilirubin Total 0.6 mg/dL (0.0-1.0); Blood Urea Nitrogen 20 mg/dL (9-16); Calcium 8.9 mg/dL (8.4-10.2); Carbon Dioxide 22 mmol/L (22-29); Chloride 101 mmol/L (96-108); Creatinine Clr Calc Pharmacy 51.7; Estimated Glomerular Filt Rate 59; Ethanol < 10 mg/dL; Glucose Random 340 mg/dL (60-115); Magnesium 2.1 mg/dL (1.6-2.6); Potassium 3.7 mmol/L (3.3-5.1); Sodium 137 mmol/L (135-145); Total Protein 6.5 g/dL (6.5-8.0)
--- NOTE | 2023-02-24 11:23 | PC.NURSE ---
Assumed care of this pt at 1000. pt transferred from the POD to main ed for further evaluation of Altered Mental Status. denies si/hi.
[2023-02-24 11:42] LABS: TSH reflex Free T4 1.78 uIU/mL (0.32-4.0)
[2023-02-24 12:05] LABS: Glucose, Whole Blood 236 mg/dL (60-115)
[2023-02-24 12:07] LABS: Appearance Urine Clear; Color Urine Yellow; Glucose Urine UA 500 mg/dL (Negative); Leukocyte Esterase Urine Negative (Negative); Nitrite Urine Negative (Negative); PH 7.5 (5.0-9.0); Specific Gravity - Urine 1.015 (1.005-1.025); Urine Blood Negative (Negative); Urine Ketones Negative (Negative); Urine Protein Negative (Neg-Trace)
[2023-02-24 12:16] LABS: Amphetamine Screen Urine Not Detected (Not Detect); Barbiturates, Urine Not Detected (Not Detect); Benzodiazepines Screen Urine Not Detected (Not Detect); Cannabinoid Screen Urine Not Detected (Not Detect); Cocaine Screen Urine Not Detected (Not Detect); Fentanyl, urine Not Detected (Not Detect); Opiate Screen Urine Not Detected (Not Detect); Phencyclidine Screen Urine Not Detected (Not Detect)
--- NOTE | 2023-02-24 12:30 | PC.NURSE ---
urine sample obtained via straight cath. pt changed into rosana and pulled up in bed, her daughter is at her bedside. no apparent distress/resting quietly.
--- NOTE | 2023-02-24 14:30 | ECG_ITS ---
Test Reason : left chest pain Blood Pressure : / mmHG Vent. Rate : 066 BPM Atrial Rate : 066 BPM P-R Int : 194 ms QRS Dur : 080 ms QT Int : 460 ms P-R-T Axes : 046 -21 088 degrees QTc Int : 482 ms Normal sinus rhythm Nonspecific T wave abnormality Prolonged QT Abnormal ECG No previous ECGs available Referred By: Jamia Saldana Electronically Signed By:JABARI BAUER
[2023-02-24 15:29] VITALS: BP 132/66; PULSE 76; RESP 15; TEMP 36.1; O2SAT 95
[2023-02-24 15:37] LABS: Glucose, Whole Blood 84 mg/dL (60-115)
== END 2023-02-24 16:29 | disposition home or self-care (01) ==
PROVIDERS: Physician Assistant; Emergency Provider Emergency Medicine; PCP General Practice
DX: F33.1 Major depressive disorder, recurrent, moderate (principal); R07.89 Other chest pain; R44.1 Visual hallucinations; Z20.822 Contact with and (suspected) exposure to COVID-19; Z20.828 Contact with and (suspected) exposure to other viral communicable diseases; Z79.899 Other long term (current) drug therapy
CPT/HCPCS: 36415; 51702; 70450; 80048; 80076; 80307; 81003; 82947; 83735; 84443; 85025; 87635; 93005; 99284

== ENCOUNTER 2023-04-01 10:05 | Outpatient (REF) | payer OTHER, SELFPAY ==
--- NOTE | ~2023-04-01 | XR_ITS ---
EXAMINATION: XR LUMBOSACRAL SPINE CLINICAL INFORMATION: Low back pain COMPARISON: None available. TECHNIQUE: Three views of the lumbosacral spine. FINDINGS: Bone alignment is normal. No fracture or dislocation. Multilevel degenerative spondylosis greatest at L1-L2 and L2-L3. No significant disc space narrowing. Lower lumbar spine facet arthritis. Atherosclerotic disease. Arthritis at the left hip joint. XR/XR lumbar spine 2-3V IMPRESSION: Degenerative changes.
== END 2023-04-01 10:06 | disposition home or self-care (01) ==
LOC: HO.HHCX 10:05
PROVIDERS: Visit Provider General Practice
DX: M54.50 Low back pain, unspecified (principal); G89.29 Other chronic pain
CPT/HCPCS: 72100

== ENCOUNTER 2023-08-19 11:22 | Outpatient (AMB) | payer OTHER, SELFPAY ==
--- NOTE | 2023-08-19 11:23 | A.OFFVIS_ITS ---
Intake Vital Signs 08/19/23 11:32 Weight 189 lb 2 oz BP 138/66 Blood Pressure Location Rt brachial Position Sitting Respiration 16 Pulse 80 Pulse Source Pulse Oximeter Pulse Oximetry (%) 97 Oxygen Delivery Method Room Air Intake Visit Reasons: Follow Up/ Increasing Pain/confirmed with niece Allergies aspirin [ASA] Allergy (Verified 08/19/23 11:33) Swelling heparin Allergy (Verified 08/19/23 11:33) Unknown Penicillins Allergy (Verified 08/19/23 11:33) Swelling HPI HPI Comments History of Present Illness Details Floridalma is back in my office after 1 year of absence. She was subject of transforaminal epidural steroid injection L4-5 L5-S1 transforaminal epidural steroid injection on 08/24/2022. She reported some pain relieve on this procedure but no longer than 3 and half months. She is interested in repeat - of this procedure as the temporal measure to alleviate her pain.. Attention was attracted today that the patient reports pain greatly exacerbated with forward flexing and prolong sitting. On the MRI which was performed 1 year ago up there are some Modic type changes. I would like to radiologist to re- evaluate this MRI. Possibility exists that the the pain of this patient is actually vertebrogenic in nature. She reports exacerbation of the pain with Valsalva maneuver. This also can indicate on vertebra genic nature of the pain since the intra-abdominal increase of the pressure results in transfer of the pressure to the vertebral vascular bed and compression of the existing intervertebral lesions. She also reports significant neuropathy of bilateral lower extremities. I will schedule her for Qutenza a procedure in the office. Brochure of Qutenza was given to the patient. The pain is exacerbated prolong sitting on standing has been taking? gabapentin and tramdol with partial relief. She has also tried topicals, heat/ice and tylenol with minimal effect. She has been advised to avoid NSAIDS due to ASA. The dose of the gabapentin is very low. I explained to the patient that I might increase gabapentin dose to help her pain. I will increase it to 400 mg t.i.d. [facility] Medical History Aortic stenosis Depression Diabetes Hepatitis B High cholesterol Hypertension Hypothyroid Surgical History H/O cardiac catheterization S/P AVR (~02/2022) Social History Patient Tobacco Use Status: Never used Tobacco Review of Systems Const All systems reviewed & are unremarkable except as noted in HPI and below Physical Exam Const General: cooperative, healthy appearing, no acute distress and alert Orientation/consciousness: patient oriented x3 Limitations: no limitations HEENT Head: Yes normal to inspection, Yes normocephalic and Yes atraumatic Ears: hearing grossly normal bilaterally Eyes General: appearance normal, both eyes and all related structures Neck Neck: Yes normal visual inspection, Yes supple and Yes no JVD Resp Effort & Inspection: normal respiratory effort, able to speak in complete sentences and no audible wheezes Cardio Peripheral pulses: Peripheral pulses 2+ throughout (no appreciable rhythmic abnormalities) Back/Spine/Pelvis Other: Patient unable to walk on heels and tip toes due to pain and weakness. Can flex forward to 40-50 degrees and extend to 10 degrees before experiencing lumbar pain. Demonstrates 4/5 strength of quadriceps bilaterally as well as flexion/dorsiflexion of bilateral feet against resistance. Straight leg rise equvocal on the left and negative on the right. DTR intact and symmetrical. Report cold feet sensation secondary to diabetes and diabetic neuropathy. Thoracic/Lumbar Spine: thoracic and lumbar spine normal to inspection, No Thoracic/lumbar spine scar(s), pain with thoraco-lumbar ROM, paraspinal muscle tenderness, thoraco-lumbar ROM limited, No thoracic spinal tenderness and No lumbar spinal tenderness Sacroiliac joints: on the left tender to palpation Neuro General: patient oriented x3, moves all extremities and Normal light touch and pain sensation Psych Appearance: grossly normal Mental Status: mental status grossly normal Speech and movement: Normal speech and movement present Affect: normal affect Attitude: cooperative Thought process: Normal thought process present Thought content: Normal thought content present Insight: Good insight present (Psych) Judgement: Good judgement present (Psych) Results Reviewed Results Reviewed: EXAMINATION: MR LUMBAR SPINE WITHOUT CONTRAST CLINICAL INFORMATION: Lumbar radiculopathy. COMPARISON: No relevant prior imaging. TECHNIQUE: MRI of the lumbar spine was obtained using routine sequences without contrast. FINDINGS: There is a slight grade 1 retrolisthesis of L1 on L2 and L2 on L3. Alignment is otherwise normal. Vertebral heights are preserved. No acute bone marrow signal changes. There is slight loss of intervertebral disc height and T2 signal intensity at multiple levels related to disc degeneration. The tip of the conus medullaris is located at L1. No mass effect on the conus. Visualized distal cord signal intensity is normal. At T12-L1 there is a slightly bulging disc. Bilateral facet degenerative change. No canal stenosis. No mass effect on traversing or foraminal nerve roots. At L1-L2 there is a diffusely bulging disc. Bilateral facet degenerative change. No canal stenosis. No mass effect on the traversing or foraminal nerve roots. At L2-L3 there is a diffusely bulging disc. Bilateral facet degenerative change. Mild to moderate canal stenosis. No mass effect on the traversing or foraminal nerve roots. At L3-L4 there is a small central protrusion superimposed upon a bulging disc. Bilateral facet degenerative change. Mild/moderate canal stenosis. No mass effect on the traversing or foraminal nerve roots. At L4-L5 there is a central annular fissure associated with a diffusely bulging disc. Bilateral facet degenerative change. Mild to moderate canal stenosis. Subarticular zone narrowing causes abutment and possible compression of both traversing L5 nerve roots. No foraminal nerve root compression. At L5-S1 there is an asymmetrically bulging disc to the left. Bilateral facet degenerative change. No canal stenosis. No mass effect on the traversing or foraminal nerve roots. Limited visualization of the retroperitoneal anatomy reveals no abnormal finding. Psoas and paraspinal muscle groups are symmetric. MR/MR lumbar spine wo con IMPRESSION: There is multilevel degenerative spondylosis of the lumbar spine. There is mild to moderate canal stenosis at the level of and L2-L3, L3-L4, and L4-L5. Subarticular zone narrowing at L4-L5 causes abutment and possible compression of both traversing L5 nerve roots. Otherwise no substantial mass effect on the traversing or foraminal nerve roots elsewhere within the lumbar spine. ? Assessment & Plan Assessment & Plan (1) Spondylosis of lumbar spine: Code(s): M47.816 - Spondylosis without myelopathy or radiculopathy, lumbar region (2) Lumbar radiculopathy: Code(s): M54.16 - Radiculopathy, lumbar region (3) Vertebrogenic low back pain: Code(s): M54.51 - Vertebrogenic low back pain (4) Disc degeneration, lumbar: Code(s): M51.36 - Other intervertebral disc degeneration, lumbar region (5) Chronic pain syndrome: Code(s): G89.4 - Chronic pain syndrome Plan 1. I will increase her gabapentin to 400 mg t.i.d.. 2. I will schedule her for transforaminal epidural steroid injection L4-5 L5-S1 on the left to temporize the pain condition. 3. I examined MRI images myself and there are certain Modic type changes in the lower lumbar vertebra as. We will request radiologist to re-evaluate the MRI and make a conclusion on Modic type changes. Prolong sitting, forward flexing, axial lower back pain with minimal radiation to the left thigh make me believe that this patient may be suffering from vertebrogenic pain. 4. I will schedule her for Qutenza bilateral feet procedure to help her peripheral neuropathy on the lower extremities. 5. I will re-evaluate this patient after the transforaminal epidural steroid injection and if the results of MRI re-evaluations are ready I may offer this patient intrasept procedure. Medications: New gabapentin 400 mg PO TID 30 days 90 caps 8RF Patient Instructions: I here by testify that I spent 40 minutes with discussing this patient's problem, evaluating previous records and previous images and evaluating previous prescriptions as well as riding new prescriptions to the patient's. Coding Level of Care Code Est Pt Level 5 (59904) Diagnoses Spondylosis of lumbar spine M47.816 Lumbar radiculopathy M54.16 Vertebrogenic low back pain M54.51 Disc degeneration, lumbar M51.36 Chronic pain syndrome G89.4
[2023-08-19 11:32] VITALS: BP 138/66; PULSE 80; RESP 16; O2SAT 97
== END 2023-08-19 11:52 | disposition home or self-care (01) ==
PROVIDERS: PCP General Practice; Visit Provider Anesthesiology
DX: M47.816 Spondylosis without myelopathy or radiculopathy, lumbar region (principal); M54.16 Radiculopathy, lumbar region; M54.51 Vertebrogenic low back pain; M51.36 Other intervertebral disc degeneration, lumbar region; G89.4 Chronic pain syndrome
CPT/HCPCS: 99214

== ENCOUNTER → 2023-08-19 11:22 | Outpatient (BNVA) | payer OTHER, SELFPAY | PROVIDERS: PCP General Practice; Visit Provider Anesthesiology | DX: M47.816 Spondylosis without myelopathy or radiculopathy, lumbar region (principal); M54.16 Radiculopathy, lumbar region; M54.51 Vertebrogenic low back pain; M51.36 Other intervertebral disc degeneration, lumbar region; G89.4 Chronic pain syndrome | CPT/HCPCS: 99212 ==

== ENCOUNTER 2023-09-16 16:44 | Outpatient (REF) | payer OTHER, SELFPAY ==
[2023-09-16 18:13] LABS: Creatinine Urine 38.51 mg/dL; Microalbumin Urine < 5.0 mg/L
[2023-09-16 18:23] LABS: Carbon Dioxide 34 mmol/L (22-29); Chloride 96 mmol/L (96-108); Potassium 4.4 mmol/L (3.3-5.1); Sodium 138 mmol/L (135-145)
[2023-09-16 18:24] LABS: Alanine Aminotransferase 12 U/L (0-31); Albumin Level 4.2 g/dL (3.5-5.0); Alkaline Phosphatase 122 U/L (39-117); Anion Gap 12 (12-20); Aspartate Amino Transferase 17 U/L (5-31); Bilirubin Total 0.3 mg/dL (0.0-1.0); Blood Urea Nitrogen 18 mg/dL (9-16); Calcium 9.3 mg/dL (8.4-10.2); Estimated Glomerular Filt Rate 46; Total Protein 7.6 g/dL (6.5-8.0)
[2023-09-16 18:44] LABS: Glucose Random 387 mg/dL (60-115)
[2023-09-17 07:57] LABS: ~HepC Num1 0.24 S/CO (0.00-0.79); ~Hepatitis C Antibody Nonreactive (Nonreactive)
== END 2023-09-16 16:45 | disposition home or self-care (01) ==
LOC: HO.HHCL 16:44
PROVIDERS: Visit Provider General Practice
DX: E11.22 Type 2 diabetes mellitus with diabetic chronic kidney disease (principal); N18.30 Chronic kidney disease, stage 3 unspecified; Z79.4 Long term (current) use of insulin
CPT/HCPCS: 36415; 80053; 82570; 86803

== ENCOUNTER → 2023-10-30 14:44 | Outpatient (BNVA) | payer OTHER, SELFPAY | PROVIDERS: Visit Provider Anesthesiology | DX: M47.816 Spondylosis without myelopathy or radiculopathy, lumbar region (principal); M54.16 Radiculopathy, lumbar region; M54.51 Vertebrogenic low back pain; M51.36 Other intervertebral disc degeneration, lumbar region; G89.4 Chronic pain syndrome | CPT/HCPCS: 17999; 99212; J7336 ==

== ENCOUNTER 2023-10-30 14:46 | Outpatient (AMB) | payer OTHER, SELFPAY ==
--- NOTE | 2023-10-30 14:45 | MHC.OFFVIS ---
Intake Vital Signs 10/30/23 14:52 10/30/23 16:03 10/30/23 16:03 Height 5 ft 5 in Weight 183 lb BMI 30.4 BP 122/66 118/78 126/70 Blood Pressure Location Lt brachial Lt brachial Lt brachial Position Sitting Sitting Sitting Respiration 16 14 14 Pulse 67 73 70 Pulse Source Pulse Oximeter Pulse Oximeter Pulse Oximeter Pulse Oximetry (%) 96 97 96 Oxygen Delivery Method Room Air Room Air Room Air Comment 15 min 30 min Intake Visit Reasons: Qutenza 1st treatment Diabetic Neuropathy/no answ Intake Note: Patient comes in for Qutenza 1st treatment Diabetic Neuropathy. Allergies aspirin [ASA] Allergy (Verified 10/30/23 14:53) Swelling heparin Allergy (Verified 10/30/23 14:53) blood clot Penicillins Allergy (Verified 10/30/23 14:53) Swelling HPI HPI Comments History of Present Illness Details Floridalma came today in the office with the intention to receive Qutenza procedure. I examined her today and determined that she is in her usual health condition see physical exam as below. Her vital signs are stable-see as below. Will perform the procedure today with application box number: SN [id number], lot number [id number], expiration 11/09/2025, GTIN [id number] She was subject of transforaminal epidural steroid injection L4-5 L5-S1 transforaminal epidural steroid injection on 08/24/2022. She reported some pain relieve on this procedure but no longer than 3 and half months. She is interested in repeat - of this procedure as the temporal measure to alleviate her pain.. Attention was attracted today that the patient reports pain greatly exacerbated with forward flexing and prolong sitting. On the MRI which was performed 1 year ago up there are some Modic type changes. I would like to radiologist to re-evaluate this MRI. Possibility exists that the the pain of this patient is actually vertebrogenic in nature. She reports exacerbation of the pain with Valsalva maneuver. This also can indicate on vertebra genic nature of the pain since the intra-abdominal increase of the pressure results in transfer of the pressure to the vertebral vascular bed and compression of the existing intervertebral lesions. She also reports significant neuropathy of bilateral lower extremities. I will schedule her for Qutenza second treatment, a procedure in the office. The pain is exacerbated prolong sitting on standing has been taking? gabapentin and tramadol with partial relief. She has also tried topical, heat/ice and Tylenol with minimal effect. She has been advised to avoid NSAIDS due to ASA. The dose of the gabapentin is very low. I explained to the patient that I might increase gabapentin dose to help her pain. I will increase it to 400 mg t.i.d. [facility] Medical History (Updated 10/01/23 @ 16:08 by Meghan Rivera, [place]) Rheumatic heart disease SOB (shortness of breath) Thrombocytopenia Renal failure CHF (congestive heart failure) Aortic valve disorder Chest pain Diabetes PND (paroxysmal nocturnal dyspnea) Carotid artery disease Walker as ambulation aid Balance problem Tremor Depression Hypothyroid Hepatitis B Aortic stenosis High cholesterol Hypertension Diabetes Surgical History (Updated 10/01/23 @ 15:09 by Meghan Rivera, [place]) History of hysterectomy S/P epidural steroid injection (~08/24/22) S/P AVR (~02/2022) H/O cardiac catheterization Social History (Updated 10/01/23 @ 15:15 by Meghan Rivera RN) Household Members: Family Housing: Apartment Are you a primary home health care case manager to a significant other at home: No Do you presently have visiting nurse or other home services: Yes ([employer] 5 hours per day) Patient Tobacco Use Status: Never used Tobacco Review of Systems Const All systems reviewed & are unremarkable except as noted in HPI and below Physical Exam Vital Signs: Last Vital Signs Pulse 70 10/30/23 16:03 Resp 14 10/30/23 16:03 BP 126/70 10/30/23 16:03 Pulse Ox 96 10/30/23 16:03 Oxygen Delivery Method Room Air 10/30/23 16:03 BMI result Body Mass Index 30.4 Const General: cooperative, healthy appearing, no acute distress and alert Orientation/consciousness: patient oriented x3 Limitations: no limitations HEENT Head: Yes normal to inspection, Yes normocephalic and Yes atraumatic Ears: hearing grossly normal bilaterally Eyes General: appearance normal, both eyes and all related structures Neck Neck: Yes normal visual inspection, Yes supple and Yes no JVD Resp Effort & Inspection: normal respiratory effort, able to speak in complete sentences and no audible wheezes Cardio Peripheral pulses: Peripheral pulses 2+ throughout (no appreciable rhythmic abnormalities) Back/Spine/Pelvis Other: Patient unable to walk on heels and tip toes due to pain and weakness. Can flex forward to 40-50 degrees and extend to 10 degrees before experiencing lumbar pain. Demonstrates 4/5 strength of quadriceps bilaterally as well as flexion/dorsiflexion of bilateral feet against resistance. Straight leg rise equvocal on the left and negative on the right. DTR intact and symmetrical. Report cold feet sensation secondary to diabetes and diabetic neuropathy. Thoracic/Lumbar Spine: thoracic and lumbar spine normal to inspection, No Thoracic/lumbar spine scar(s), pain with thoraco-lumbar ROM, paraspinal muscle tenderness, thoraco-lumbar ROM limited, No thoracic spinal tenderness and No lumbar spinal tenderness Sacroiliac joints: on the left tender to palpation Neuro General: patient oriented x3, moves all extremities and Normal light touch and pain sensation Psych Appearance: grossly normal Mental Status: mental status grossly normal Speech and movement: Normal speech and movement present Affect: normal affect Attitude: cooperative Thought process: Normal thought process present Thought content: Normal thought content present Insight: Good insight present (Psych) Judgement: Good judgement present (Psych) Assessment & Plan Assessment & Plan (1) Spondylosis of lumbar spine: Code(s): M47.816 - Spondylosis without myelopathy or radiculopathy, lumbar region (2) Lumbar radiculopathy: Code(s): M54.16 - Radiculopathy, lumbar region (3) Vertebrogenic low back pain: Code(s): M54.51 - Vertebrogenic low back pain (4) Disc degeneration, lumbar: Code(s): M51.36 - Other intervertebral disc degeneration, lumbar region Plan: To tense a procedure today: Patient was brought to the examination room and positioned sitting on the examination table. She reported application of appropriate local anesthetics before the procedure. Qutenza patches were applied and held for appropriate time. Patient's blood pressure and heart rate was monitored during and after the procedure. No complications were observed. Patient went home without immediate complications. (5) Chronic pain syndrome: Code(s): G89.4 - Chronic pain syndrome Plan I examined MRI images myself and there are certain Modic type changes in the lower lumbar vertebra as. We will request radiologist to re-evaluate the MRI and make a conclusion on Modic type changes. Prolong sitting, forward flexing, axial lower back pain with minimal radiation to the left thigh make me believe that this patient may be suffering from vertebrogenic pain. She is here for Marg[place] second treatment, a bilateral feet procedure to help her peripheral neuropathy on the lower extremities. 5. I will re-evaluate this patient after the transforaminal epidural steroid injection and if the results of MRI re-evaluations are ready I may offer this patient intrasept procedure. Margoth box: [id number] Expiration 11/09/2025 GTIN 003 [id number] Coding Level of Care Code Est Pt Level 3 (19417) Procedure Only Diagnoses Spondylosis of lumbar spine M47.816 Lumbar radiculopathy M54.16 Vertebrogenic low back pain M54.51 Disc degeneration, lumbar M51.36 Chronic pain syndrome G89.4
--- OUTSIDE RECORDS SUMMARY | 2023-10-30 14:46 | XMS_ITS | Continuity of Care Document ---
Author Name Unknown Organization [facility]an grace Address [address] [place] [id number]- Care Team Providers Care Real Estate Subagent Name Role Phone Sussy ROGERS, Bria Randolph Primary Care Physician [place] [facility] [place](s): 04/11/22 - 05/11/22 [facility] [address] [place] [address]- Allergies, Adverse Reactions, Alerts Substance Reaction Severity Status aspirin 1 ITCHY MOUTH AND SWELLING Mild Act rodrigo heparin Heparin-induced thrombocytopenia with thr ombosis Active penicillins 2 ITCHY MOUTH, AND SWELLING Severe A ctive Lasix itching Mild Active oxyCODONE Delirium/hallucination Activ e 1rash 2angioedema rash Immunizations Given and Recorded Vaccine Date Status Refusal Reason SARS-CoV-2 (COVID-19) mRNA-1273 vaccine 01/23/21 R ecorded SARS-CoV-2 (COVID-19) mRNA-1273 vaccine 12/26/20 R ecorded Medications apixaban 2.5 mg oral tablet 1 tablet = 2.5 mg, By Mouth, 2 times a day, # 60 tablet, 2 Refills, Maintenance, 03/14/22 11:53:00 EDT, Tablet, [facility], Partial fill upon patient request if the prescription is for a schedule II opioid drug., 160, cm, 03/14/22 8:36:0... Start Date: 03/14/22 Status: Ordered atorvastatin 40 mg oral tablet 1 tablet = 40 mg, By Mouth, Daily, # 30 tablet, 0 Refills, Maintenance, 03/14/22 11:53:00 EDT, Tablet, [facility], Partial fill upon patient request if the prescription is for a schedule II opioid drug., 160, cm, 03/14/22 8:36:00 EDT, He... Start Date: 03/14/22 Status: Ordered Chloraseptic Lozenge 1 lozenge, By Mouth, Every 3 hours, PRN Other, Sore Throat, 0 Refills, Maintenance, 02/26/22 14:32:00 EDT, [facility], Partial fill upon patient request if the prescription is for a schedule II opioid drug. Start Date: 02/26/22 Status: Ordered Duloxetine = 30 mg, By Mouth, Daily, 0 Refills, Maintenance, 08/01/21 13:19:00 EDT, Partial fill upon patient request if the prescription is for a schedule II opioid drug. Start Date: 08/01/21 Status: Ordered gabapentin 100 mg oral capsule TAKE 1 CAPSULE BY MOUTH THREE TIMES DAILY Start Date: 02/16/22 Status: Ordered insulin glargine 100 u/ml subcutaneous solution = 27 units, Subcutaneous Injection, Daily before lunch, # 15 mL, 0 Refills, Maintenance, 03/14/22 11:51:00 EDT, Injection, [facility], Partial fill upon patient request if the prescription is for a schedule II opioid drug., 160, cm, 02/19... Start Date: 03/14/22 Status: Ordered metoprolol 50 mg oral tablet 50 mg, 1, tablet, By Mouth, 2 times a day, # 60 tablet, Refills 0, Tot. Refills 0, Maintenance, 03/14/22 11:53:00 EDT, Route to Pharmacy Electronically, [facility], Partial fill upon patient request if the prescription is for a schedule... Start Date: 03/14/22 Status: Ordered NovoLOG FlexPen 100 units/mL subcutaneous solution See Instructions, Subcutaneous Injection, Use as directed for Diabetes mellitus type 1. 150 - 199 5units 200 - 249 7 units 250 - 299 9 units 300 - 349 11 units 350 - 399 13 units 400 - 449 15 units,# 9 each, 2 Refills, Mainte... Start Date: 03/14/22 Stop Date: 12/09/22 Status: Ordered pantoprazole 40 mg oral delayed release tablet = 40 mg, By Mouth, Daily, 0 Refills, Maintenance, 02/26/22 14:34:00 EDT, EC Tablet Start Date: 02/26/22 Status: Ordered Pen Hamer, 31 G x 5 mm BD Ultra Fine III See Instructions, # 300 each, Refills 2, Tot. Refills 2, Maintenance, use as directed for Type 2 Diabetes Mellitus, 03/14/22 12:22:00 EDT, Supply, 160, cm, 03/14/22 12:15:00 EDT, Height, 74.9, kg, 03/04/22 9:53:00 EDT, Dry Weight Start Date: 03/14/22 Stop Date: 12/09/22 Status: Ordered torsemide 20 mg oral tablet 1 tablet = 20 mg, By Mouth, Daily, # 14 tablet, 0 Refills, Maintenance, 04/02/22 13:45:00 EDT, Tablet, [facility], Partial fill upon patient request if the prescription is for a schedule II opioid drug., 160, cm, 04/02/22 13:11:00... Start Date: 04/02/22 Stop Date: 04/16/22 Status: Ordered Problem List Condition Effective Dates Status Health Status Inform ant Anxiety(Confirmed) Active Chronic low back pain(Confirmed) Active Depression(Confirmed) Active Heart disease(Confirmed) Active Hypothyroid(Confirmed) Active Rheumatic aortic stenosis(Confirmed) Active Type II diabetes mellitus(Confirmed) Active Social History Social History Type Response Smoking Status Never (less than 100 in lifetime) entered on: 08/01/21 Sex
--- OUTSIDE RECORDS SUMMARY | 2023-10-30 14:46 | XMS_ITS | Continuity of Care Document ---
Author Name Unknown Organization [facility] Address [address] [place] [phone]- Care Team Providers Care Sales Planner Name Role Phone Sussy ROGERS, Bria Randolph Primary Care Physician [place] [facility] [place](s[place] 08/28/21 - 09/27/21 [facility] [address] [place] [id number] Attending Physician: Admtr, [id number] Admitting Physician: Admtr, [id number] Referring Physician: Admtr, [id number] Allergies, Adverse Reactions, Alerts Substance Reaction Severity Status aspirin 1 Mild Active penicillins 2 Severe Active 1rash 2angioedema rash Immunizations Given and Recorded Vaccine Date Status Refusal Reason SARS-CoV-2 (COVID-19) mRNA-1273 vaccine 01/23/21 R ecorded SARS-CoV-2 (COVID-19) mRNA-1273 vaccine 12/26/20 R ecorded Medications Diltiazem = 120 mg, By Mouth, Daily, 0 Refills, Maintenance, 08/01/21 13:19:00 EDT, Partial fill upon patientrequest if the prescription is for a schedule II opioid drug. Start Date: 08/01/21 Status: Ordered Duloxetine = 30 mg, By Mouth, Daily, 0 Refills, Maintenance, 08/01/21 13:19:00 EDT, Partial fill upon patient request if the prescription is for a schedule II opioid drug. Start Date: 08/01/21 Status: Ordered Levemir FlexTouch See Instructions, 10 units in AM with breakfast 15 units in PM with dinner Rotate injection sites, 0 Refills, Maintenance, 08/01/21 13:17:00 EDT, Partial fill upon patient request if the prescriptionis for a schedule II opioid drug. Start Date: 08/01/21 Status: Ordered Metformin By Mouth, 0 Refills, Maintenance, 08/01/21 13:16:00 EDT, Partial fill upon patient request if the prescription is for a schedule II opioid drug. Start Date: 08/01/21 Status: Ordered Temazepam 30 mg, By Mouth, Daily at bedtime, Refills 0, Maintenance, 08/01/21 13:19:00 EDT, Partial fill uponpatient request if the prescription is for a schedule II opioid drug. Start Date: 08/01/21 Status: Ordered Trulicity Pen Subcutaneous Infusion, 0 Refills, Maintenance, 08/01/21 13:17:00 EDT, Partial fill upon patient request if the prescription is for a schedule II opioid drug. Start Date: 08/01/21 Status: Ordered Problem List Condition Effective Dates Status Health Status Inform ant Anxiety(Confirmed) Active Chronic low back pain(Confirmed) Active Depression(Confirmed) Active Heart disease(Confirmed) Active Hypothyroid(Confirmed) Active Rheumatic aortic stenosis(Confirmed) Active Type II diabetes mellitus(Confirmed) Active Social History Social History Type Response Smoking Status Never (less than 100 in lifetime) entered on: 08/01/21 Sex
--- OUTSIDE RECORDS SUMMARY | 2023-10-30 14:46 | XMS_ITS | Continuity of Care Document ---
Author Name Unknown Organization [facility] ter Address [address] [place] [id number]- Care Team Providers Care Maintenance Shop Welder Name Role Phone Sussy ROGERS, Bria Randolph Primary Care Physician Encounter [facility] Date(s): 02/20/22 - 02/26/[address] [address] Discharge Disposition: A-Transfer SNF Attending Physician: Nadeem Edgar MD Admitting Physician: Nadeem Edgar MD Referring Physician: Nadeem Edgar MD Allergies, Adverse Reactions, Alerts Substance Reaction Severity Status aspirin 1 ITCHY MOUTH AND SWELLING Mild Act rodrigo penicillins 2 ITCHY MOUTH, AND SWELLING Severe A ctive Lasix itching Mild Active oxyCODONE Delirium/hallucination Activ e 1rash 2angioedema rash Immunizations Given and Recorded Vaccine Date Status Refusal Reason SARS-CoV-2 (COVID-19) mRNA-1273 vaccine 01/23/21 R ecorded SARS-CoV-2 (COVID-19) mRNA-1273 vaccine 12/26/20 R ecorded Medications acetaminophen 325 mg oral tablet 975 mg, Tablet, By Mouth, STAT, 02/26/22 11:54:00 EDT Start Date: 02/26/22 Stop Date: 02/26/22 Status: Completed acetaminophen 325 mg oral tablet 975 mg, 3, tablet, By Mouth, Every 6 hours, Refills 0, Maintenance, 02/26/22 14:31:00 EDT, Partial fill upon patient request if the prescription is for a schedule II opioid drug. Start Date: 02/26/22 Status: Ordered amiodarone 200 mg oral tablet 200 mg, By Mouth, 2 times a day, Refills 0, Maintenance, 02/26/22 14:31:00 EDT, Partial fill upon patient request if the prescription is for a schedule II opioid drug. Start Date: 02/26/22 Stop Date: 03/28/22 Status: Ordered atorvastatin 40 mg oral tablet 1 tablet = 40 mg, By Mouth, Daily, 0 Refills, Maintenance, 02/19/22 12:12:00 EDT, Partial fill uponpatient request if the prescription is for a schedule II opioid drug. Start Date: 02/19/22 Status: Ordered Chloraseptic Lozenge 1 lozenge, By Mouth, Every 3 hours, PRN Other, Sore Throat, 0 Refills, Maintenance, 02/26/22 14:32:00 EDT, Lozenge, Partial fill upon patient request if the prescription is for a schedule II opioid drug. Start Date: 02/26/22 Status: Ordered divalproex sodium 250 mg oral enteric coated tablet = 250 mg, By Mouth, 3 times a day, 0 Refills, Maintenance, 02/26/22 14:32:00 EDT, Tablet, Partial fill upon patient request if the [...] TIMES DAILY Start Date: 02/16/22 Status: Ordered Insulin LISPRO Inj See Instructions, Subcutaneous Injection 3 times a day before meals based on glucose 150-200 = 4 units 201-250 = 6 units 251-300 = 8 units 301-350 = 10 units 3651-400 = 12 units, 0 Refills, Maintenance, 02/26/22 14:32:00 EDT, Injection, Partia... Start Date: 02/26/22 Status: Ordered Lantus Inj 0.14 mL = 14 units, Subcutaneous Injection, Daily before lunch, 0 Refills, Maintenance, 02/26/22 14:32:00 EDT, Injection, Partial fill upon patient request if the prescription is for a schedule II opioid drug. Start Date: 02/26/22 Status: Ordered melatonin 10 mg oral capsule 1 capsule = 10 mg, By Mouth, Daily at bedtime, 0 Refills, Maintenance, 02/19/22 12:14:00 EDT, Partial fill upon patient request if the prescription is for a schedule II opioid drug. Start Date: 02/19/22 Status: Ordered metoprolol 50 mg oral tablet 50 mg, 1, tablet, By Mouth, 2 times a day, Refills 0, Maintenance, 02/26/22 14:34:00 EDT, Partial fill upon patient request if the prescription is for a schedule II opioid drug. Start Date: 02/26/22 Status: Ordered Metoprolol IR Tablet 50 mg, Tablet, By Mouth, When extubated, HOLD for HR less than 60 or SBP less than 100 or if on Vasopressors or Inotropes (May give via NG tube), 02/26/22 9:00:00 EDT Start Date: 02/26/22 Stop Date: 02/26/22 Status: Completed pantoprazole 40 mg oral delayed release tablet = 40 mg, By Mouth, Daily, 0 Refills, Maintenance, 02/26/22 14:34:00 EDT, EC Tablet Start Date: 02/26/22 Status: Ordered torsemide 20 mg oral tablet 1 tablet = 20 mg, By Mouth, Daily, 0 Refills, Maintenance, 02/26/22 14:34:00 EDT, Tablet, Partial fill upon patient request if the prescription is for a schedule II opioid drug. Start Date: 02/26/22 Status: Ordered Problem List Condition Effective Dates Status Health Status Inform ant Anxiety(Confirmed) Active Chronic low back pain(Confirmed) Active Depression(Confirmed) Active Heart disease(Confirmed) Active Hypothyroid(Confirmed) Active Rheumatic aortic stenosis(Confirmed) Active Type II diabetes mellitus(Confirmed) Active Results Orders for Microbiology Reports Name Date Urine Culture (URINE CULTURE) 02/20/22 Microbiology Reports TEST:Urine Culture STATUS:Auth (Verified) BODY SITE: SOURCE:URINE COLLECTED DATE/TIME:02/20/22 6:38 AM Urine Culture SPECIMEN DESCRIPTION : URINE SPECIAL REQUESTS : NONE Reflexed from [id number] CULTURE : <10,000 COL/ML REPORT STATUS : FINAL 02/21/2022 Radiology Reports * Exam Date Time Procedure Performing Provider Status 02/21/22 5:26 AM Chest Portable Josue White; Auth (Verified) Notes: (Chest Portable) Reason For Exam: S/P Cardiac Surgery RESULT: Chest Portable Chest Portable Reason: S P Cardiac Surgery; Clinical Question(s): Other:; Cardiac Tamponade; Special Instructions:Post Op Day 1 COMPARISON: 02/20/2022 FINDINGS: Right IJ central venous catheter tip is unchanged. Stable mediastinal drain. Endotracheal and enteric tubse have been removed. Stable right thoracostomy tube. Mild left basilar consolidation, airspace disease and groundglass IMPRESSION: Support lines and tubes are outlined above. Mild pleural-parenchymal disease at the left base WSN: [id number] Ordering Physician: Kd Irene Dictated By: Perez Chaudhari MD Dictated Date/Time: 02/21/22 8:19 am Reviewed By: Perez Chaudhari MD Signed By: Perez Chaudhari MD Signed Date/Time: 02/21/22 8:19 am Transcribed By: KALPESH Transcribed Date/Time: 02/21/22 8:17 am * Exam Date Time Procedure Performing Provider Status 02/20/22 2:33 PM Chest Portable Kim Rao; Gal (Ve rified) Notes: (Chest Portable) Reason For Exam: S/P Cardiac Surgery RESULT: Chest Portable Chest Portable AP supine at 2:23 PM REASON: S P Cardiac Surgery; Clinical Question(s): Cardiac Tamponade COMPARISON: 02/09/2022 FINDINGS: LINES AND TUBES: Endotracheal tube ends 4 cm above the noris. Right internal jugular approach [place]-Avelina catheter with the tip projecting in the pulmonary artery. Enteric tube tip and side-port project in the stomach. Mediastinal drain and right chest tube in place. Multiple wires project over the patient. LUNGS AND PLEURA: Mild bibasilar atelectasis. No pleural effusion. No pneumothorax. HEART, MEDIASTINUM AND ELINOR: Heart is normal in size. 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 BONES AND SOFT TISSUES: Status post median sternotomy. IMPRESSION: Support structures as above. WSN: [id number] Ordering Physician: Kd Irene Dictated By: Sohail Kunz MD Dictated Date/Time: 02/20/22 2:55 pm Reviewed By: Sohail Kunz MD Signed By: Sohail Kunz MD Signed Date/Time: 02/20/22 2:55 pm Transcribed By: CSB Transcribed Date/Time: 02/20/22 2:53 pm Vital Signs Most recent to oldest [Reference Range]: 1 2 3 Height 165.1 cm (02/26/22 12:58 PM) 165.1 cm (02/26/22 7:57 AM) 165.1 cm (02/26/22 4:36 AM) Weight 75.4 kg (02/26/22 4:38 AM) 75.7 kg (02/25/22 4:19 AM) 81.3 kg (02/23/22 3:08 AM) Oxygen Saturation [94-100 %] 98 % (02/26/22 12:58 PM) 95 % (02/26/22 7:57 AM) 98 % (02/26/22 4:36 AM) Pulse Rate [55-90 bpm] 76 bpm (02/26/22 12:58 PM) 84 bpm (02/26/22 8:36 AM) 84 bpm (02/26/22 7:57 AM) Body Mass Index [18.5-24.99] 27.18 *H* (02/20/22 3:41 PM) 26.34 *H* (02/20/22 7:26 AM) 27.18 *H* (02/19/22 12:19 PM) Blood Pressure [90-138/55-84 mm Hg] 118/56mm Hg (02/26/22 12:58 PM) 140/60mm Hg *H* (02/26/22 8:36 AM) 140/60mm Hg *H* (02/26/22 7:57 AM) Respiratory Rate [16-30 br/min] 20 br/min (02/26/22 1:19 PM) 18 br/min (02/26/22 12:58 PM) 18 br/min (02/26/22 7:57 AM) Temperature [96.8-100.4 DegF] 98.1 DegF (02/26/22 12:58 PM) 98.9 DegF (02/26/22 7:57 AM) 98.4 DegF (02/26/22 4:36 AM) Liters per Minute 2 L/min (02/22/22 10:58 PM) 3 L/min (02/22/22 8:35 PM) 2 L/min (02/22/22 11:00 AM) Mode of Delivery (Oxygen) Room air (02/26/22 12:58 PM) Room air (02/26/22 7:57 AM) Room air (02/26/22 4:36 AM) Blood pressure sites Arm, left (02/26/22 12:58 PM) Arm, left (02/26/22 7:57 AM) Arm, left (02/26/22 4:36 AM) Temperature Route Oral (02/26/22 12:58 PM) Oral (02/26/22 7:57 AM) Oral (02/26/22 4:36 AM) Dry Weight 74.1 kg (02/20/22 3:41 PM) 74.1 kg (02/19/22 12:19 PM) Weight Obtained Via Bed scale (02/26/22 4:38 AM) Bed scale (02/25/22 4:19 AM) Standing scale (02/20/22 7:26 AM) Dry Weight Obtained Via Patient/family stated (02/19/22 12:19 PM) Social History Social History Type Response Smoking Status Never (less than 100 in lifetime) entered on: 08/01/21 Sex
--- OUTSIDE RECORDS SUMMARY | 2023-10-30 14:46 | XMS_ITS | Continuity of Care Document ---
Author Name Unknown Organization [facility] Address [address] [place] [address]- Care Team Providers Care Staff Development Coordinator Rn Name Role Phone Sussy ROGERS, Bria Randolph Primary Care Physician Encounter [facility] [place] Date(s): 03/29/22 - 07/30/22 [facility] [address] [place] [id number] Discharge Disposition: A-D/C Home Attending Physician: Roberto Garduno MD Admitting Physician: Roberto Garduno MD Referring Physician: Cleopatra HOME BUILDER, Ailyn Allergies, Adverse Reactions, Alerts Substance Reaction Severity Status aspirin 1 ITCHY MOUTH AND SWELLING Mild Act rodrigo penicillins 2 ITCHY MOUTH, AND SWELLING Severe A ctive oxyCODONE Delirium/hallucination Activ e Lasix itching Mild Active 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 Start Date: 03/14/22 Status: Ordered atorvastatin 40 mg oral tablet 1 tablet = 40 mg, By Mouth, Daily, # 30 tablet, 0 Refills, Maintenance, 03/14/22 11:53:00 EDT, Tablet, [facility], Partial fill upon patient request if the prescription is for a schedule II opioid drug., 160, cm, 03/14/22 8:36:00 EDT, He... Start Date: 03/14/22 Status: Ordered Duloxetine = 30 mg, By [...] 0 Refills, Maintenance, 03/14/22 11:51:00 EDT, Injection, [facility], Partial fill upon patient request if the prescription is for a schedule II opioid drug., 160, cm, 02/19... Start Date: 03/14/22 Status: Ordered metoprolol 50 mg oral tablet 50 mg, 1, tablet, By Mouth, 2 times a day, # 60 tablet, Refills 0, Tot. Refills 0, Maintenance, 03/14/22 11:53:00 EDT, Route to Pharmacy Electronically, [facility], Partial fill upon patient request if [...] Tablet Start Date: 02/26/22 Status: Ordered Pen [place], 31 G x 5 mm BD Ultra [...] 0 Refills, Maintenance, 04/02/22 13:45:00 EDT, Tablet, [facility], Partial fill upon patient request if the prescription is for a schedule II opioid drug., 160, cm, 04/02/22 13:11:00... Start Date: 04/02/22 Stop Date: 04/16/22 Status: Ordered Problem List Condition Confirmation Course Effective Dates Status Health St atus Informant Anxiety Confirmed Active Chronic low back pain Confirmed Active Depression Confirmed Active Heart disease Confirmed Active Hypothyroid Confirmed Active Obese class I Confirmed Active Rheumatic aortic stenosis Confirmed Active Type II diabetes mellitus Confirmed Active Vital Signs Most recent to oldest [Reference Range]: 1 Height 160 cm (05/30/22 10:17 AM) Weight 78.0 kg (05/30/22 10:17 AM) Pulse Rate [55-90 bpm] 68 bpm (05/30/22 10:17 AM) Body Mass Index [18.5-24.99] 30.47 *>HHI* (05/30/22 10:17 AM) Blood Pressure [90-138/55-84 mm Hg] 128/ 72mm Hg (05/30/22 10:17 AM) Temperature [96.8-100.4 DegF] 98.5 DegF (05/30/22 10:17 AM) Blood pressure sites Arm, right (05/30/22 10:17 AM) Temperature Route Oral (05/30/22 10:17 AM) Dry Weight 78.0 kg (05/30/22 10:17 AM) Weight Obtained Via Standing scale (05/30/22 10:17 AM) Dry Weight Obtained Via Standing scale (05/30/22 10:17 AM) Social History Social History Type Response Smoking Status Never (less than 100 in lifetime) entered on: 10/12/21 Sex Patient Care team information Personnel Name: Sussy ROGERS, Bria Randolph Address: Address: [address], [place] [address]
--- OUTSIDE RECORDS SUMMARY | 2023-10-30 14:46 | XMS_ITS | Continuity of Care Document ---
Author Name Unknown Organization [facility] Address [address] [place] [id number]- Care Team Providers Care In Flight Refueling Manager Name Role Phone Sussy ROGERS, Bria Randolph Primary Care Physician Encounter [facility] [place] Date(s): 10/01/22 - 10/31/22 [facility] [address] [place] [id number]- [place] Allergies, Adverse Reactions, Alerts Substance Reaction Severity [...] 2 Refills, Maintenance, 03/14/22 11:53:00 EDT, Tablet, [facility], Partial fill upon patient request if the prescription is for a schedule II opioid drug., 160, cm, 03/14/22 8:36:0... Start Date: 03/14/22 Status: Ordered atorvastatin 40 mg oral tablet 1 tablet = 40 mg, By Mouth, Daily, # 30 tablet, 0 Refills, Maintenance, 03/14/22 11:53:00 EDT, Tablet, [facility], Partial fill upon patient [...] 0 Refills, Maintenance, 03/14/22 11:51:00 EDT, Injection, [facility], Partial fill upon patient request if the prescription is for a schedule II opioid drug., 160, cm, 02/19... Start Date: 03/14/22 Status: Ordered metoprolol 50 mg oral tablet 50 mg, 1, tablet, By Mouth, 2 times a day, # 60 tablet, Refills 0, Tot. Refills 0, Maintenance, 03/14/22 11:53:00 EDT, Route to Pharmacy Electronically, [facility], Partial fill upon patient request if [...] Tablet Start Date: 02/26/22 Status: Ordered Pen [place], 31 G x 5 mm BD Ultra [...] 0 Refills, Maintenance, 04/02/22 13:45:00 EDT, Tablet, [facility], Partial fill upon patient request [...] Active Type II diabetes mellitus Confirmed Active Social History Social History Type Response Smoking Status Never (less than 100 in lifetime) entered on: 08/01/21 Sex Patient Care team information Care Team Personnel Name: Ana Rosa Gutierrez RN Position: S RN Member Role: Primary Care Nurse Name: Bria Hi NP Position: Reference Physician Member Role: PCP Address: Address: [address] [place] [address]- Name: Monika Johnson RN Position: S RN Member Role: Primary Care Nurse Name: Laquita Zamora RN Position: S RN Neville Member Role: Primary Care Nurse Name: Ryan Ponce RN Position: S RN Member Role: Primary Care Nurse Name: Alia Abdi RN Position: S RN Member Role: Primary Care Nurse Name: Miryam Lucio RN Position: S RN Member Role: Primary Care Nurse Care Team Related Persons Name: YULIANA BERGERON Address: home [address] [place] [address] Name: ANGELINA CHEN
--- OUTSIDE RECORDS SUMMARY | 2023-10-30 14:46 | XMS_ITS | Continuity of Care Document ---
Author Name Unknown Organization [facility] ter Address [address] [place] [phone]- Care Team Providers Care Senior Software Systems Engineer Name Role Phone Sussy ROGERS, Bria Randolph Primary Care Physician Encounter [facility] [place] Date(s): 03/04/22 - 03/14/[address] [phone]- Encounter Diagnosis Hyperglycemia(Final) - 03/04/22 Discharge Disposition: A-D/C Home Attending Physician: Nadeem Edgar MD Admitting Physician: Nadeem Edgar MD Referring Physician: Not on Staff, Referring MD Allergies, Adverse Reactions, Alerts Substance Reaction Severity Status aspirin 1 ITCHY MOUTH AND SWELLING Mild Act rodrigo penicillins 2 ITCHY MOUTH, AND SWELLING Severe A ctive Lasix itching Mild Active oxyCODONE Delirium/hallucination Activ e 1rash 2angioedema rash Immunizations Given and Recorded Vaccine Date Status Refusal Reason SARS-CoV-2 (COVID-19) mRNA-1273 vaccine 01/23/21 R ecorded SARS-CoV-2 (COVID-19) mRNA-1273 vaccine 12/26/20 R ecorded Medications amiodarone 200 mg oral tablet 200 mg, 1, tablet, By Mouth, 2 times a day, # 60 tablet, Refills 0, Tot. Refills 0, Maintenance, 02/27/22 10:11:00 EDT, Route to Pharmacy Electronically, [facility], Partial fill upon patient request if the prescription is for a sc... Start Date: 02/27/22 Stop Date: 03/29/22 Status: Ordered apixaban 2.5 mg oral tablet 1 tablet = 2.5 mg, By Mouth, 2 times a day, # 60 tablet, 2 Refills, Maintenance, 03/14/22 11:53:00 EDT, Tablet, [facility], Partial fill upon patient request if the prescription is for a schedule II opioid drug., 160, cm, 03/14/22 8:36:0... Start Date: 03/14/22 Status: Ordered atorvastatin 40 mg oral tablet 1 tablet = 40 mg, By Mouth, Daily, # 30 tablet, 0 Refills, Maintenance, 03/14/22 11:53:00 EDT, Tablet, [facility], Partial fill upon patient request [...] TIMES DAILY Start Date: 02/16/22 Status: Ordered gabapentin 100 mg oral capsule 100 mg, Capsule, By Mouth, 03/14/22 9:00:00 EDT Start Date: 03/14/22 Stop Date: 03/14/22 Status: Completed insulin glargine 100 u/ml subcutaneous solution = 27 units, Subcutaneous Injection, Daily before lunch, # 15 mL, 0 Refills, Maintenance, 03/14/22 11:51:00 EDT, Injection, [facility], Partial fill upon patient request if the prescription is for a schedule II opioid drug., 160, cm, 02/19... Start Date: 03/14/22 Status: Ordered metoprolol 50 mg oral tablet 50 mg, 1, tablet, By Mouth, 2 times a day, # 60 tablet, Refills 0, Tot. Refills 0, Maintenance, 03/14/22 11:53:00 EDT, Route to Pharmacy Electronically, [facility], Partial fill upon patient request [...] Tablet Start Date: 02/26/22 Status: Ordered Pen [place], 31 G x 5 mm BD Ultra Fine III See Instructions, # 300 each, Refills 2, Tot. Refills 2, Maintenance, use as directed for Type 2 Diabetes Mellitus, 03/14/22 12:22:00 EDT, Supply, 160, cm, 03/14/22 12:15:00 EDT, Height, 74.9, kg, 03/04/22 9:53:00 EDT, Dry Weight Start Date: 03/14/22 Stop Date: 12/09/22 Status: Ordered Problem List Condition Effective Dates Status Health Status Inform ant Anxiety(Confirmed) Active Chronic low back pain(Confirmed) Active Depression(Confirmed) Active Heart disease(Confirmed) Active Hypothyroid(Confirmed) Active Rheumatic aortic stenosis(Confirmed) Active Type II diabetes mellitus(Confirmed) Active Vital Signs Most recent to oldest [Reference Range]: 1 2 3 Height 160 cm (03/14/22 12:15 PM) 160 cm (03/14/22 8:36 AM) 160 cm (03/14/22 4:20 AM) Weight 73.2 kg (03/06/22 3:00 AM) 73.4 kg (03/05/22 8:13 PM) 74.9 kg (03/04/22 9:53 AM) Oxygen Saturation [94-100 %] 99 % (03/14/22 12:15 PM) 99 % (03/14/22 8:36 AM) 98 % (03/14/22 4:20 AM) Pulse Rate [55-90 bpm] 69 bpm (03/14/22 12:15 PM) 70 bpm (03/14/22 8:36 AM) 67 bpm (03/14/22 4:20 AM) Body Mass Index [18.5-24.99] 29.26 *H* (03/04/22 9:53 AM) 29.3 *H* (03/04/22 7:41 AM) Blood Pressure [90-138/55-84 mm Hg] 114/50mm Hg (03/14/22 12:15 PM) 128/57mm Hg (03/14/22 8:36 AM) 125/48mm Hg (03/14/22 4:20 AM) Respiratory Rate [16-30 br/min] 18 br/min (03/14/22 12:15 PM) 16 br/min (03/14/22 10:06 AM) 16 br/min (03/14/22 9:06 AM) Temperature [96.8-100.4 DegF] 98.2 DegF (03/14/22 12:15 PM) 98.2 DegF (03/14/22 8:36 AM) 97.7 DegF (03/14/22 4:20 AM) Mode of Delivery (Oxygen) Room air (03/14/22 12:15 PM) Room air (03/14/22 8:36 AM) Room air (03/14/22 4:20 AM) Blood pressure sites Arm, right (03/14/22 12:15 PM) Arm, right (03/14/22 8:36 AM) Arm, right (03/14/22 4:20 AM) Temperature Route Oral (03/14/22 12:15 PM) Oral (03/14/22 8:36 AM) Oral (03/14/22 4:20 AM) Dry Weight 74.9 kg (03/04/22 9:53 AM) 75 kg (03/04/22 7:41 AM) 75 kg (03/03/22 10:41 PM) Weight Obtained Via Bed scale (03/05/22 8:13 PM) Bed scale (03/04/22 9:53 AM) Patient/family stated (03/03/22 10:41 PM) Dry Weight Obtained Via Bed scale (03/04/22 9:53 AM) Patient/family stated (03/03/22 10:41 PM) Social History Social History Type Response Smoking Status Never (less than 100 in lifetime) entered on: 08/01/21 Sex
--- OUTSIDE RECORDS SUMMARY | 2023-10-30 14:46 | XMS_ITS | Continuity of Care Document ---
Author Name Unknown Organization [facility] Address [address] [place] [address]- Care Team Providers Care Configuration Specialist Name Role Phone Josephine Romo MD Primary Care Physician [place] [facility] [place](s): 04/29/23 - 05/29/23 [facility] [address] [place] [id number] Attending Physician: Mike Wiggins Admitting Physician: AdmtrMike Referring Physician: Admtr, Ar8 Allergies, Adverse Reactions, [...] 2 Refills, Maintenance, 03/14/22 11:53:00 EDT, Tablet, [facility], Partial fill upon patient request if the prescription is for a schedule II opioid drug., 160, cm, 03/14/22 8:36:0... Start Date: 03/14/22 Status: Ordered atorvastatin 40 mg oral tablet 1 tablet = 40 mg, By Mouth, Daily, # 30 tablet, 0 Refills, Maintenance, 03/14/22 11:53:00 EDT, Tablet, [facility], Partial fill upon patient request [...] TIMES DAILY Start Date: 02/16/22 Status: Ordered hydrOXYzine hydrochloride 10 mg oral tablet = 10 mg, TAKE 1 OR TWO TABS PRN, 0 Refills, Maintenance, 12/26/22 9:21:00 EST, Partial fill upon patient request if the prescription is for a schedule II opioid drug. Start Date: 12/26/22 Status: Ordered insulin glargine 100 u/ml subcutaneous solution See Instructions, 20 units Subcutaneous Injection Daily in the AM. E11.9, # 30 mL, 7 Refills, Maintenance, 04/29/23 14:11:00 EDT, Injection, [facility], Partial fill upon patient request if the prescription is for a schedule II opi... Start Date: 04/29/23 Status: Ordered lidocaine 5% topical film See Instructions, PRN Pain , Mild, remove patches after 12 hours, 0 Refills, Maintenance, 12/26/22 9:17:00 EST, Film, Partial fill upon patient request if the prescription is for a schedule II opioiddrug. Start Date: 12/26/22 Status: Ordered metoprolol 50 mg oral tablet 50 mg, 1, tablet, By Mouth, 2 times a day, # 60 tablet, Refills 0, Tot. Refills 0, Maintenance, 03/14/22 11:53:00 EDT, Route to Pharmacy Electronically, [facility], Partial fill upon patient request if [...] 400 - 449 15 units,# 9 each, 6 Refills, Mainte... Start Date: 04/29/23 Stop Date: 01/18/25 Status: Ordered Pen [place], 31 G x 5 mm BD Ultra Fine III See Instructions, # 300 each, Refills 2, Tot. Refills 2, Maintenance, use as directed for Type 2 Diabetes Mellitus, 04/29/23 14:10:00 EDT, Supply, 160, cm, 04/29/23 13:10:00 EDT, Height, 78, kg, 05/30/22 10:17:00 EDT, Dry Weight Start Date: 04/29/23 Stop Date: 01/24/24 Status: Ordered torsemide 20 mg oral tablet 1 tablet = 20 mg, By Mouth, Daily, # 14 tablet, 0 Refills, Maintenance, 04/02/22 13:45:00 EDT, Tablet, [facility], Partial fill upon patient request if [...] 100 in lifetime) entered on: 08/01/21 Sex Cardiology * Event Display: Non Cardiovascular Results Authored Date: Laboratory * Event Display: Non Lab Results Authored Date: Patient Care team information Care Team Personnel Name: Ana Rosa Gutierrez RN Position: [facility] RN Member Role: Primary Care Nurse Name: Monika Johnson RN Position: S RN Supv Member Role: Primary Care Nurse Name: Josephine Romo MD Position: S Physician - Primary Care Member Role: PCP Address: Address: [address] [place] [address], 1st [place], [place] [address] Name: Laquita Zamora RN Position: S RN Supv Member Role: Primary Care Nurse Name: Ryan Ponce RN Position: S RN Member Role: Primary Care Nurse Name: Maddison Aquino Position: S Outreach Member Role: Lifetime Consulting Physician Name: Alia Abdi RN Position: S RN Member Role: Primary Care Nurse Name: Miryam Lucio RN Position: [facility] RN Member Role: Primary Care Nurse Care Team Related Persons Name: YULIANA BERGERON Address: [address] [address] Name: ANGELINA CHEN
--- OUTSIDE RECORDS SUMMARY | 2023-10-30 14:46 | XMS_ITS | Continuity of Care Document ---
Author Name Unknown Organization [facility] Address [address] [place] [address]- Care Team Providers Care Bilingual Patient Support Caseworker Name Role Phone Josephine Romo MD Primary Care Physician [phone] Encounter [facility] [place] Date(s): 04/05/23 - 05/05/23 [facility] [address] [place] [address]- Allergies, Adverse Reactions, Alerts Substance Reaction Severity [...] 2 Refills, Maintenance, 03/14/22 11:53:00 EDT, Tablet, [facility], Partial fill upon patient request if the prescription is for a schedule II opioid drug., 160, cm, 03/14/22 8:36:0... Start Date: 03/14/22 Status: Ordered atorvastatin 40 mg oral tablet 1 tablet = 40 mg, By Mouth, Daily, # 30 tablet, 0 Refills, Maintenance, 03/14/22 11:53:00 EDT, Tablet, [facility], Partial fill upon patient [...] 7 Refills, Maintenance, 04/29/23 14:11:00 EDT, Injection, [facility], Partial fill upon patient request if [...] 03/14/22 11:53:00 EDT, Route to Pharmacy Electronically, [facility], Partial fill upon patient [...] 04/29/23 Stop Date: 01/18/25 Status: Ordered Pen [place], 31 G x 5 mm BD Ultra [...] 0 Refills, Maintenance, 04/02/22 13:45:00 EDT, Tablet, [facility], Partial fill upon patient request if [...] Personnel Name: Ana Rosa Gutierrez RN Position: [facility] RN Member Role: Primary Care Nurse Name: Monika Johnson RN Position: [facility] RN Supv Member Role: Primary Care Nurse Name: Josephine Romo MD Position: [facility] Physician - Primary Care Member Role: PCP Address: Address: [address] [place] [address], 1st floor [place], [place] [address] Name: Laquita Zamora RN Position: [facility] RN Supv Member Role: Primary Care Nurse Name: Ryan Ponce RN Position: S RN Member Role: Primary Care Nurse Name: Maddison Aquino Position: S Outreach Member Role: Lifetime Consulting Physician Name: Alia Abdi RN Position: S RN Member Role: Primary Care Nurse Name: Miryam Lucio RN Position: [facility] RN Member Role: Primary Care Nurse Care Team Related Persons Name: YULIANA BERGERON Address: home [address] [place] [id number] Name: ANGELINA CHEN
--- OUTSIDE RECORDS SUMMARY | 2023-10-30 14:46 | XMS_ITS | Continuity of Care Document ---
Author Name Unknown Organization [facility] Address [address] [place] [address]- Care Team Providers Care Pig Machine Supervisor Name Role Phone Sussy ROGERS, Bria Randoplh Primary Care Physician [place] [facility] [place] 12/30/21 [facility] [address] [place] [id number] Attending Physician: Mike Wiggins Admitting Physician: [...]
--- OUTSIDE RECORDS SUMMARY | 2023-10-30 14:46 | XMS_ITS | Continuity of Care Document ---
Author Name Unknown Organization [facility] Address [address] [place] [address]- Care Team Providers Care Repairer And Checker Name Role Phone Sussy ROGERS, Bria Randolph Primary Care Physician Encounter [facility] [place] Date(s): 02/27/22 - 04/06/22 [facility] [address] [place] [id number] Attending Physician: Herve AVILA, Nadeem Kapoor Referring Physician: Jozef Suazo DO Allergies, Adverse Reactions, Alerts Substance Reaction Severity [...] 2 Refills, Maintenance, 03/14/22 11:53:00 EDT, Tablet, [facility], Partial fill upon patient request if the prescription is for a schedule II opioid drug., 160, cm, 03/14/22 8:36:0... Start Date: 03/14/22 Status: Ordered atorvastatin 40 mg oral tablet 1 tablet = 40 mg, By Mouth, Daily, # 30 tablet, 0 Refills, Maintenance, 03/14/22 11:53:00 EDT, Tablet, [facility], Partial fill upon [...] 0 Refills, Maintenance, 03/14/22 11:51:00 EDT, Injection, [facility], Partial fill upon patient request if the prescription is for a schedule II opioid drug., 160, cm, 02/19... Start Date: 03/14/22 Status: Ordered metoprolol 50 mg oral tablet 50 mg, 1, tablet, By Mouth, 2 times a day, # 60 tablet, Refills 0, Tot. Refills 0, Maintenance, 03/14/22 11:53:00 EDT, Route to Pharmacy Electronically, [facility], Partial fill upon patient request [...] Tablet Start Date: 02/26/22 Status: Ordered Pen [place], 31 G x 5 mm BD Ultra [...] 0 Refills, Maintenance, 04/02/22 13:45:00 EDT, Tablet, [facility], Partial fill upon patient request [...]
--- OUTSIDE RECORDS SUMMARY | 2023-10-30 14:46 | XMS_ITS | Continuity of Care Document ---
Author Name Unknown Organization [facility] Address [address] [place] [address]- Care Team Providers Care Favor Maker Name Role Phone Sussy ROGERS, Bria Randolph Primary Care Physician Encounter [facility] [place] Date(s): 11/22/21 - 03/15/22 [facility] [address] [place] [address]- Attending Physician: Hugh Lewis MD Admitting Physician: Hugh Lewis MD Referring Physician: Sussy ROGERS, Brai Randolph Allergies, Adverse Reactions, Alerts Substance Reaction Severity [...] 02/27/22 10:11:00 EDT, Route to Pharmacy Electronically, [facility], Partial fill upon patient request if the prescription is for a sc... Start Date: 02/27/22 Stop Date: 03/29/22 Status: Ordered apixaban 2.5 mg oral tablet 1 tablet = 2.5 mg, By Mouth, 2 times a day, # 60 tablet, 2 Refills, Maintenance, 03/14/22 11:53:00 EDT, Tablet, [facility], Partial fill upon patient request if the prescription is for a schedule II opioid drug., 160, cm, 03/14/22 8:36:0... Start Date: 03/14/22 Status: Ordered atorvastatin 40 mg oral tablet 1 tablet = 40 mg, By Mouth, Daily, # 30 tablet, 0 Refills, Maintenance, 03/14/22 11:53:00 EDT, Tablet, [facility], Partial fill upon patient request [...] 0 Refills, Maintenance, 03/14/22 11:51:00 EDT, Injection, [facility], Partial fill upon patient request if the prescription is for a schedule II opioid drug., 160, cm, 02/19... Start Date: 03/14/22 Status: Ordered metoprolol 50 mg oral tablet 50 mg, 1, tablet, By Mouth, 2 times a day, # 60 tablet, Refills 0, Tot. Refills 0, Maintenance, 03/14/22 11:53:00 EDT, Route to Pharmacy Electronically, [facility], Partial fill upon patient request [...] Tablet Start Date: 02/26/22 Status: Ordered Pen [place], 31 G x 5 mm BD Ultra [...]
--- OUTSIDE RECORDS SUMMARY | 2023-10-30 14:46 | XMS_ITS | Continuity of Care Document ---
Author Name Unknown Organization [facility] Address [address] [place] [address]- Care Team Providers Care Assisted Living Director Name Role Phone Sussy ROGERS, Bria Randolph Primary Care Physician [place] [facility] [place] - 08/09/21 [facility] [address] [place] [id number] Attending Physician: Melodie Samuel MD Admitting Physician: Melodie Samuel MD Referring Physician: Sussy ROGERS, Bria Randolph Allergies, Adverse Reactions, Alerts Substance Reaction Severity Status aspirin 1 Mild Active penicillins 2 Severe Active 1rash 2angioedema rash Immunizations Given and Recorded Vaccine Date Status Refusal Reason SARS-CoV-2 (COVID-19) mRNA-1273 vaccine 01/23/21 R ecorded SARS-CoV-2 (COVID-19) mRNA-1273 vaccine 12/26/20 R ecorded Medications Diltiazem 0 Refills, Maintenance, 08/01/21 13:19:00 EDT, Partial fill upon patient request if the prescription is for a schedule II opioid drug. Start Date: 08/01/21 Status: Ordered Duloxetine By Mouth, 0 Refills, Maintenance, 08/01/21 13:19:00 EDT, Partial fill upon patient request if the prescription is for a schedule II opioid drug. Start Date: 08/01/21 Status: Ordered Levemir FlexTouch Subcutaneous Infusion, 0 Refills, Maintenance, 08/01/21 13:17:00 EDT, Partial fill upon patient request if the prescription is for a schedule II opioid drug. Start Date: 08/01/21 Status: Ordered Metformin By Mouth, 0 Refills, Maintenance, 08/01/21 13:16:00 EDT, Partial fill upon patient request if the prescription is for a schedule II opioid drug. Start Date: 08/01/21 Status: Ordered Temazepam By Mouth, Daily at bedtime, Refills 0, Maintenance, 08/01/21 13:19:00 EDT, Partial fill upon [...]
--- OUTSIDE RECORDS SUMMARY | 2023-10-30 14:47 | XMS_ITS | Continuity of Care Document ---
Author Name Unknown Organization [facility] Address [address] [place] [id number]- Care Team Providers Care Sas Etl Developer Name Role Phone Sussy ROGERS, Bria Randolph Primary Care Physician [place] [facility] [place]s): 04/02/22 - 04/09/22 [facility] [address] [place] [address]- Attending Physician: Arslan ROGERS, Kimberly Referring Physician: Sussy ROGERS, Bria Randolph Allergies, [...] 2 Refills, Maintenance, 03/14/22 11:53:00 EDT, Tablet, [facility], Partial fill upon patient request if the prescription is for a schedule II opioid drug., 160, cm, 03/14/22 8:36:0... Start Date: 03/14/22 Status: Ordered atorvastatin 40 mg oral tablet 1 tablet = 40 mg, By Mouth, Daily, # 30 tablet, 0 Refills, Maintenance, 03/14/22 11:53:00 EDT, Tablet, [facility], Partial fill upon [...] 0 Refills, Maintenance, 03/14/22 11:51:00 EDT, Injection, [facility], Partial fill upon patient request if the prescription is for a schedule II opioid drug., 160, cm, 02/19... Start Date: 03/14/22 Status: Ordered metoprolol 50 mg oral tablet 50 mg, 1, tablet, By Mouth, 2 times a day, # 60 tablet, Refills 0, Tot. Refills 0, Maintenance, 03/14/22 11:53:00 EDT, Route to Pharmacy Electronically, [facility], Partial fill upon patient request [...] Tablet Start Date: 02/26/22 Status: Ordered Pen [place], 31 G x 5 mm BD Ultra [...] 0 Refills, Maintenance, 04/02/22 13:45:00 EDT, Tablet, [facility], Partial fill upon patient request [...] oldest [Reference Range]: 1 Height 160 cm (04/02/22 1:11 PM) Weight 73.49 kg (04/02/22 1:11 PM) Oxygen Saturation [94-100 %] 98 % (04/02/22 1:11 PM) Pulse Rate [55-90 bpm] 55 bpm (04/02/22 1:11 PM) Body Mass Index [18.5-24.99] 28.71 *H* (04/02/22 1:11 PM) Blood Pressure [90-138/55-84 mm Hg] 118/ 70mm Hg (04/02/22 1:11 PM) Respiratory Rate [16-30 br/min] 18 br/mi n (04/02/22 1:11 PM) Mode of Delivery (Oxygen) Room air (04/02/22 1:11 PM) Blood pressure sites Arm, right (04/02/22 1:11 PM) Weight Obtained Via Patient/family state d (04/02/22 1:11 PM) Social History Social History Type Response Smoking Status Never (less than 100 in lifetime) entered on: 08/01/21 Sex
--- OUTSIDE RECORDS SUMMARY | 2023-10-30 14:47 | XMS_ITS | Continuity of Care Document ---
Author Name Unknown Organization [facility] Address [address] [place] [address]- Care Team Providers Care Director Of Academic Name Role Phone Sussy ROGERS, Bria Randolph Primary Care Physician [place] [facility] [place] - 12/30/21 [facility] [address] [place] [address]- Attending Physician: Not on Staff, Attending MD Referring Physician: Sussy ROGERS, Bria Randolph [...]
--- OUTSIDE RECORDS SUMMARY | 2023-10-30 14:47 | XMS_ITS | Continuity of Care Document ---
Author Name Unknown Organization [facility] Address [address] [place] [address]- Care Team Providers Care Orchestra Musician Name Role Phone Sussy ROGERS, Bria Randolph Primary Care Physician Encounter [facility] [place] Date(s): 04/24/22 - 05/24/22 [facility] [address] [place] [address]- Allergies, Adverse Reactions, Alerts Substance Reaction Severity [...] 2 Refills, Maintenance, 03/14/22 11:53:00 EDT, Tablet, [facility], Partial fill upon patient request if the prescription is for a schedule II opioid drug., 160, cm, 03/14/22 8:36:0... Start Date: 03/14/22 Status: Ordered atorvastatin 40 mg oral tablet 1 tablet = 40 mg, By Mouth, Daily, # 30 tablet, 0 Refills, Maintenance, 03/14/22 11:53:00 EDT, Tablet, [facility], Partial fill upon patient [...] 0 Refills, Maintenance, 03/14/22 11:51:00 EDT, Injection, [facility], Partial fill upon patient request if the prescription is for a schedule II opioid drug., 160, cm, 02/19... Start Date: 03/14/22 Status: Ordered metoprolol 50 mg oral tablet 50 mg, 1, tablet, By Mouth, 2 times a day, # 60 tablet, Refills 0, Tot. Refills 0, Maintenance, 03/14/22 11:53:00 EDT, Route to Pharmacy Electronically, [facility], Partial fill upon patient [...] Tablet Start Date: 02/26/22 Status: Ordered Pen [place], 31 G x 5 mm BD Ultra [...] Refills, Maintenance, 04/02/22 13:45:00 EDT, Tablet, [facility], Partial fill upon patient request if [...]
--- OUTSIDE RECORDS SUMMARY | 2023-10-30 14:47 | XMS_ITS | Continuity of Care Document ---
Author Name Unknown Organization [facility] Address [address] [place] [address]- Care Team Providers Care Garbage Collector Driver Name Role Phone Sussy ROGERS, Bria Randolph Primary Care Physician [place] [facility] [place] 02/22/22 - 03/24/[address] [address]- Attending Physician: Not on Staff, Attending MD Admitting Physician: Not on Staff, Admitting MD Referring Physician: Not on Staff, Referring [...] 02/27/22 10:11:00 EDT, Route to Pharmacy Electronically, [facility], Partial fill upon patient request if the prescription is for a sc... Start Date: 02/27/22 Stop Date: 03/29/22 Status: Ordered apixaban 2.5 mg oral tablet 1 tablet = 2.5 mg, By Mouth, 2 times a day, # 60 tablet, 2 Refills, Maintenance, 03/14/22 11:53:00 EDT, Tablet, [facility], Partial fill upon patient request if the prescription is for a schedule II opioid drug., 160, cm, 03/14/22 8:36:0... Start Date: 03/14/22 Status: Ordered atorvastatin 40 mg oral tablet 1 tablet = 40 mg, By Mouth, Daily, # 30 tablet, 0 Refills, Maintenance, 03/14/22 11:53:00 EDT, Tablet, [facility], Partial fill upon patient [...] 0 Refills, Maintenance, 03/14/22 11:51:00 EDT, Injection, [facility], Partial fill upon patient request if the prescription is for a schedule II opioid drug., 160, cm, 02/19... Start Date: 03/14/22 Status: Ordered metoprolol 50 mg oral tablet 50 mg, 1, tablet, By Mouth, 2 times a day, # 60 tablet, Refills 0, Tot. Refills 0, Maintenance, 03/14/22 11:53:00 EDT, Route to Pharmacy Electronically, [facility], Partial fill upon patient [...] Tablet Start Date: 02/26/22 Status: Ordered Pen [place], 31 G x 5 mm BD Ultra [...]
--- OUTSIDE RECORDS SUMMARY | 2023-10-30 14:47 | XMS_ITS | Continuity of Care Document ---
Author Name Unknown Organization [facility] Address [address] [place] [address]- Care Team Providers Care Boom Master Name Role Phone Not on Staff, PCP Primary Care Physician Unavail able Encounter [facility] Date(s): 06/27/21 - 07/27/21 [facility] [address] [place], [place] [address] Allergies, Adverse Reactions, Alerts Substance Reaction Severity Status aspirin 1 Mild Active penicillins 2 Severe Active 1rash 2angioedema rash Problem List Condition Effective Dates Status Health Status Inform ant Anxiety(Confirmed) Active Chronic low back pain(Confirmed) Active Depression(Confirmed) Active Heart disease(Confirmed) Active Hypothyroid(Confirmed) Active Rheumatic aortic stenosis(Confirmed) Active Type II diabetes mellitus(Confirmed) Active
--- OUTSIDE RECORDS SUMMARY | 2023-10-30 14:47 | XMS_ITS | Continuity of Care Document ---
Author Name Unknown Organization [facility] Address [address] [place] [address]- Care Team Providers Care Stage Builder Name Role Phone Sussy ROGERS, Bria Randolph Primary Care Physician Encounter [facility] Date(s): 03/02/22 - 04/01/22 [facility] [address] [place] [phone]- Allergies, Adverse Reactions, Alerts Substance Reaction Severity [...] 02/27/22 10:11:00 EDT, Route to Pharmacy Electronically, [facility], Partial fill upon patient request if the prescription is for a sc... Start Date: 02/27/22 Stop Date: 03/29/22 Status: Ordered apixaban 2.5 mg oral tablet 1 tablet = 2.5 mg, By Mouth, 2 times a day, # 60 tablet, 2 Refills, Maintenance, 03/14/22 11:53:00 EDT, Tablet, [facility], Partial fill upon patient request if the prescription is for a schedule II opioid drug., 160, cm, 03/14/22 8:36:0... Start Date: 03/14/22 Status: Ordered atorvastatin 40 mg oral tablet 1 tablet = 40 mg, By Mouth, Daily, # 30 tablet, 0 Refills, Maintenance, 03/14/22 11:53:00 EDT, Tablet, [facility], Partial fill upon [...] 0 Refills, Maintenance, 03/14/22 11:51:00 EDT, Injection, [facility], Partial fill upon patient request if the prescription is for a schedule II opioid drug., 160, cm, 02/19... Start Date: 03/14/22 Status: Ordered metoprolol 50 mg oral tablet 50 mg, 1, tablet, By Mouth, 2 times a day, # 60 tablet, Refills 0, Tot. Refills 0, Maintenance, 03/14/22 11:53:00 EDT, Route to Pharmacy Electronically, [facility], Partial fill upon [...] Tablet Start Date: 02/26/22 Status: Ordered Pen [place], 31 G x 5 mm BD Ultra [...]
--- OUTSIDE RECORDS SUMMARY | 2023-10-30 14:47 | XMS_ITS | Continuity of Care Document ---
Author Name Unknown Organization [facility] ter Address [address] [place] [id number]- Care Team Providers Care Superintendent Communications Name Role Phone Sussy ROGERS, Bria Randolph Primary Care Physician [place] [facility] [place](s): 09/08/21 - 09/08/[address] [address] Discharge Disposition: A-D/C Home Attending Physician: Mary Mosqueda MD Admitting Physician: Mary Mosqueda MD Referring Physician: Jozef Suazo DO Allergies, Adverse [...] oldest [Reference Range]: 1 2 3 Height 165 cm (09/08/21 8:45 AM) 165 cm (09/08/21 8:45 AM) Weight 74.1 kg (09/08/21 8:45 AM) 74.1 kg (09/08/21 8:45 AM) Oxygen Saturation [94-100 %] 100 % (09/08/21 3:30 PM) 99 % (09/08/21 3:00 PM) 99 % (09/08/21 2:30 PM) Pulse Rate [55-90 bpm] 74 bpm (09/08/21 8:45 AM) Body Mass Index [18.5-24.99] 27.22 *H* (09/08/21 8:45 AM) Blood Pressure [90-138/55-84 mm Hg] 128/60mm Hg (09/08/21 3:30 PM) 117/71mm Hg (09/08/21 3:00 PM) 104/59mm Hg (09/08/21 2:30 PM) Respiratory Rate [16-30 br/min] 22 br/min (09/08/21 3:30 PM) 15 br/min *L* (09/08/21 3:00 PM) 14 br/min *L* (09/08/21 2:30 PM) Temperature [96.8-100.4 DegF] 97.8 DegF (09/08/21 8:45 AM) Mode of Delivery (Oxygen) Room air (09/08/21 3:30 PM) Room air (09/08/21 3:00 PM) Room air (09/08/21 2:30 PM) Blood pressure sites Arm, left (09/08/21 2:00 PM) Arm, left (09/08/21 1:45 PM) Arm, left (09/08/21 1:30 PM) Temperature Route Temporal (09/08/21 8:45 AM) Dry Weight 74.1 kg (09/08/21 8:45 AM) 74.1 kg (09/08/21 8:45 AM) Weight Obtained Via Standing scale (09/08/21 8:45 AM) Standing scale (09/08/21 8:45 AM) Dry Weight Obtained Via Standing scale (09/08/21 8:45 AM) Standing scale (09/08/21 8:45 AM) Social History Social History Type Response Smoking Status Never (less than 100 in lifetime) entered on: 08/01/21 Sex
--- OUTSIDE RECORDS SUMMARY | 2023-10-30 14:47 | XMS_ITS | Continuity of Care Document ---
Author Name Unknown Organization [facility] Ahsan grace Address [address] [place] [address]- Care Team Providers Care Parking Garage Manager Name Role Phone Sussy FIELD CROP FARMING SUPERVISOR, Bria Randolph Primary Care Physician Encounter [facility] [place] Date(s): 01/23/22 - 02/22/22 [facility] [address] [place] [address]- Allergies, Adverse Reactions, Alerts Substance Reaction Severity Status aspirin 1 ITCHY MOUTH AND SWELLING Mild Act rodrigo penicillins 2 ITCHY MOUTH, AND SWELLING Severe A ctive Lasix itching Mild Active oxyCODONE Delirium/hallucination Activ e 1rash 2angioedema rash Immunizations Given and Recorded Vaccine Date Status Refusal Reason SARS-CoV-2 (COVID-19) mRNA-1273 vaccine 01/23/21 R ecorded SARS-CoV-2 (COVID-19) mRNA-1273 vaccine 12/26/20 R ecorded Medications atorvastatin 40 mg oral tablet 1 tablet = 40 mg, By Mouth, Daily, 0 Refills, Maintenance, 02/19/22 12:12:00 EDT, Partial fill uponpatient request if the prescription is for a schedule II opioid drug. Start Date: 02/19/22 Status: Ordered azithromycin 250 mg oral tablet 1 pack/packet, By Mouth, Once, # 6 tablet, 0 Refills, Maintenance, 02/16/22 12:41:00 EDT, Tablet, Partial fill upon patient request if the prescription is for a schedule II opioid drug. Start Date: 02/16/22 Stop Date: 02/17/22 Status: Ordered azithromycin 250 mg oral tablet 1 tablet = 250 mg, By Mouth, Daily, # 4 tablet, 0 Refills, Maintenance, 02/20/22 7:38:00 EDT, Tablet, Partial fill upon patient request if the prescription is for a schedule II opioid drug. Start Date: 02/20/22 Stop Date: 02/24/22 Status: Ordered carvedilol 3.125 mg oral tablet TAKE 1 TABLET BY MOUTH TWICE DAILY WITH FOOD Start Date: 02/16/22 Status: Ordered Duloxetine = 30 mg, By Mouth, Daily, 0 Refills, Maintenance, 08/01/21 13:19:00 EDT, Partial fill upon patient request if the prescription is for a schedule II opioid drug. Start Date: 08/01/21 Status: Ordered furosemide 20 mg oral tablet TAKE 1 TABLET BY MOUTH ONCE DAILY Start Date: 02/16/22 Status: Ordered gabapentin 100 mg oral capsule TAKE 1 CAPSULE BY MOUTH THREE TIMES DAILY Start Date: 02/16/22 Status: Ordered Levemir FlexTouch See Instructions, 10 units in AM with breakfast 15 units in PM with dinner Rotate injection sites, 0 Refills, Maintenance, 08/01/21 13:17:00 EDT, Partial fill upon patient request if the prescriptionis for a schedule II opioid drug. Start Date: 08/01/21 Status: Ordered melatonin 10 mg oral capsule 1 capsule = 10 mg, By Mouth, Daily at bedtime, 0 Refills, Maintenance, 02/19/22 12:14:00 EDT, Partial fill upon patient request if the prescription is for a schedule II opioid drug. Start Date: 02/19/22 Status: Ordered NovoLOG FlexPen 100 units/mL injectable solution INJECT 5 UNITS SUBCUTANEOUSLY THREE TIMES DAILY WITH MEALS Start Date: 02/16/22 Status: Ordered predniSONE 10 mg oral tablet 0 Refills, Maintenance, 02/16/22 12:41:00 EDT, Partial fill upon patient request if the prescription is for a schedule II opioid drug. Start Date: 02/16/22 Stop Date: 02/17/22 Status: Ordered Temazepam 30 mg, By Mouth, [...]
--- OUTSIDE RECORDS SUMMARY | 2023-10-30 14:47 | XMS_ITS | Continuity of Care Document ---
Author Name Unknown Organization [facility] Address [address] [place] [address]- Care Team Providers Care Benefits Specialist Name Role Phone Sussy FINANCIAL AID MANAGER, Bria Randolph Primary Care Physician [place] [facility] [place]22 - 04/28/22 [facility] [address] [place] [address]- Attending Physician: Rosalie, Mike Admitting Physician: AdmtrMike Referring Physician: Admtr, Ar8 Allergies, Adverse Reactions, Alerts Substance Reaction Severity Status aspirin 1 ITCHY MOUTH AND SWELLING Mild Act rodrigo heparin Heparin-induced thrombocytopenia with thr ombosis Active penicillins 2 ITCHY MOUTH, AND SWELLING Severe A ctive oxyCODONE Delirium/hallucination Activ e Lasix itching Mild Active 1rash 2angioedema rash Immunizations Given and Recorded Vaccine Date Status Refusal Reason SARS-CoV-2 (COVID-19) mRNA-1273 vaccine 01/23/21 R ecorded SARS-CoV-2 (COVID-19) mRNA-1273 vaccine 12/26/20 R ecorded Medications apixaban 2.5 mg oral tablet 1 tablet = 2.5 mg, By Mouth, 2 times a day, # 60 tablet, 2 Refills, Maintenance, 03/14/22 11:53:00 EDT, Tablet, [facility], Partial fill upon patient request if the prescription is for a schedule II opioid drug., 160, cm, 03/14/22 8:36:0... Start Date: 03/14/22 Status: Ordered atorvastatin 40 mg oral tablet 1 tablet = 40 mg, By Mouth, Daily, # 30 tablet, 0 Refills, Maintenance, 03/14/22 11:53:00 EDT, Tablet, [facility], Partial fill upon patient [...] 0 Refills, Maintenance, 03/14/22 11:51:00 EDT, Injection, [facility], Partial fill upon patient request if the prescription is for a schedule II opioid drug., 160, cm, 02/19... Start Date: 03/14/22 Status: Ordered metoprolol 50 mg oral tablet 50 mg, 1, tablet, By Mouth, 2 times a day, # 60 tablet, Refills 0, Tot. Refills 0, Maintenance, 03/14/22 11:53:00 EDT, Route to Pharmacy Electronically, [facility], Partial fill upon patient [...] Tablet Start Date: 02/26/22 Status: Ordered Pen [place], 31 G x 5 mm BD Ultra [...] 0 Refills, Maintenance, 04/02/22 13:45:00 EDT, Tablet, [facility], Partial fill upon patient request if [...]
--- OUTSIDE RECORDS SUMMARY | 2023-10-30 14:47 | XMS_ITS | Continuity of Care Document ---
Author Name Unknown Organization [facility] Address [address] [place] [address]- Care Team Providers Care Internet Developer Name Role Phone Sussy ROGERS, Bria Randolph Primary Care Physician Encounter [facility] [place] Date(s): 08/28/21 - 09/04/21 [facility] [address] [place] [address]- Attending Physician: Herve AVILA, Nadeem Kapoor Referring [...] recent to oldest [Reference Range]: 1 Height 159 cm (08/28/21 11:08 AM) Weight 74.4 kg (08/28/21 11:08 AM) Oxygen Saturation [94-100 %] 95 % (08/28/21 11:08 AM) Pulse Rate [55-90 bpm] 81 bpm (08/28/21 11:08 AM) Body Mass Index [18.5-24.99] 29.43 *H* (08/28/21 11:08 AM) Blood Pressure [90-138/55-84 mm Hg] 118/ 59mm Hg (08/28/21 11:08 AM) Respiratory Rate [16-30 br/min] 18 br/mi n (08/28/21 11:08 AM) Blood pressure sites Arm, left (08/28/21 11:08 AM) Social History Social History Type Response Smoking Status Never (less than 100 in lifetime) entered on: 08/01/21 Sex
--- OUTSIDE RECORDS SUMMARY | 2023-10-30 14:47 | XMS_ITS | Continuity of Care Document ---
Author Name Unknown Organization [facility] ter Address [address] [place] [address]- Care Team Providers Care Dx Board Operator Name Role Phone Josephine Romo MD Primary Care Physician [place] [facility] [place]17[place]23 - 07/17/[address] [address]- Attending Physician: Admtr, [id number] Admitting Physician: Admtr, Mike Referring Physician: Admtr, Ar8 Allergies, Adverse Reactions, Alerts Substance Reaction Severity Status aspirin 1 ITCHY MOUTH AND SWELLING Mild Act rodrigo penicillins 2 ITCHY MOUTH, AND SWELLING Severe A ctive Lasix itching Mild Active oxyCODONE Delirium/hallucination Activ e heparin Heparin-induced thrombocytopenia with thr ombosis Active 1rash 2angioedema rash Immunizations Given and Recorded Vaccine Date Status Refusal Reason SARS-CoV-2 (COVID-19) mRNA-1273 vaccine 01/23/21 R ecorded SARS-CoV-2 (COVID-19) mRNA-1273 vaccine 12/26/20 R ecorded Medications apixaban 2.5 mg oral tablet 1 tablet = 2.5 mg, By Mouth, 2 times a day, # 60 tablet, 2 Refills, Maintenance, 03/14/22 11:53:00 EDT, Tablet, [facility], Partial fill upon patient request if the prescription is for a schedule II opioid drug., 160, cm, 03/14/22 8:36:0... Start Date: 03/14/22 Status: Ordered atorvastatin 40 mg oral tablet 1 tablet = 40 mg, By Mouth, Daily, # 30 tablet, 0 Refills, Maintenance, 03/14/22 11:53:00 EDT, Tablet, [facility], Partial fill upon patient [...] 7 Refills, Maintenance, 04/29/23 14:11:00 EDT, Injection, [facility], Partial fill upon patient request if [...] 03/14/22 11:53:00 EDT, Route to Pharmacy Electronically, [facility], Partial fill upon patient [...] 04/29/23 Stop Date: 01/18/25 Status: Ordered Pen [place], 31 G x 5 mm BD Ultra [...] 0 Refills, Maintenance, 04/02/22 13:45:00 EDT, Tablet, [facility], Partial fill upon patient request if [...] Personnel Name: Ana Rosa Gutierrez RN Position: [facility] RN Member Role: Primary Care Nurse Name: Monika Johnson RN Position: [facility] RN Supv Member Role: Primary Care Nurse Name: Josephine Romo MD Position: [facility] Physician - Primary Care Member Role: PCP Address: Address: [address] [place] [address], [address] Name: Laquita Zamora RN Position: [facility] RN Supv Member Role: Primary Care Nurse Name: Ryan Ponce RN Position: S RN Member Role: Primary Care Nurse Name: Maddison Aquino Position: S Outreach Member Role: Lifetime Consulting Physician Name: Alia Abdi RN Position: S RN Member Role: Primary Care Nurse Name: Miryam Lucio RN Position: [facility] RN Member Role: Primary Care Nurse Care Team Related Persons Name: YULIANA BERGERON Address: home [address] [place] [address] Name: ANGELINA CHEN Address: [place] [address]
--- OUTSIDE RECORDS SUMMARY | 2023-10-30 14:47 | XMS_ITS | Continuity of Care Document ---
Author Name Unknown Organization [facility] INTERMISSION COORDINATOR Oncolog y Address [address] [place] [address]- Care Team Providers Care Yarder Name Role Phone Sussy ROGERS, Bria Randolph Primary Care Physician En[place] [facility] [place] ACCT R [id number] Date(s): 08/01/21 - 08/31/21 [facility] INTERMISSION COORDINATOR Oncology [address] [place] [address]- Attending Physician: Admtr, [id number] Admitting Physician: Admtr, [...]
--- OUTSIDE RECORDS SUMMARY | 2023-10-30 14:48 | XMS_ITS | Continuity of Care Document ---
Author Name Unknown Organization [facility] LEAD BUSINESS SYSTEMS ANALYST Oncolog y Address [address] [place] [address]- Care Team Providers Care Dry Placer Machine Operator Name Role Phone Sussy ROGERS, Bria Randolph Primary Care Physician [place] [facility] [place] 08/25/21 [facility] LEAD BUSINESS SYSTEMS ANALYST Oncology [address] [place] [address] Attending Physician: Melodie Samuel MD [...]
--- OUTSIDE RECORDS SUMMARY | 2023-10-30 14:48 | XMS_ITS | Continuity of Care Document ---
Author Name Unknown Organization [facility] Address [address] [place] [address]- Care Team Providers Care Motor Pool Clerk Name Role Phone Sussy VIDEO CONTROL OPERATOR, Bria Randolph Primary Care Physician [place] [facility] [place] 03/15[place]22 [facility] [address] [place] [address]- Attending Physician: Mike Wiggins Admitting Physician: AdmMike hooper Referring Physician: AdmtrMike Allergies, Adverse Reactions, Alerts Substance Reaction Severity [...] 02/27/22 10:11:00 EDT, Route to Pharmacy Electronically, [facility], Partial fill upon patient request if the prescription is for a sc... Start Date: 02/27/22 Stop Date: 03/29/22 Status: Ordered apixaban 2.5 mg oral tablet 1 tablet = 2.5 mg, By Mouth, 2 times a day, # 60 tablet, 2 Refills, Maintenance, 03/14/22 11:53:00 EDT, Tablet, [facility], Partial fill upon patient request if the prescription is for a schedule II opioid drug., 160, cm, 03/14/22 8:36:0... Start Date: 03/14/22 Status: Ordered atorvastatin 40 mg oral tablet 1 tablet = 40 mg, By Mouth, Daily, # 30 tablet, 0 Refills, Maintenance, 03/14/22 11:53:00 EDT, Tablet, [facility], Partial fill upon patient [...] 0 Refills, Maintenance, 03/14/22 11:51:00 EDT, Injection, [facility], Partial fill upon patient request if the prescription is for a schedule II opioid drug., 160, cm, 02/19... Start Date: 03/14/22 Status: Ordered metoprolol 50 mg oral tablet 50 mg, 1, tablet, By Mouth, 2 times a day, # 60 tablet, Refills 0, Tot. Refills 0, Maintenance, 03/14/22 11:53:00 EDT, Route to Pharmacy Electronically, [facility], Partial fill upon patient [...] Tablet Start Date: 02/26/22 Status: Ordered Pen [place], 31 G x 5 mm BD Ultra [...]
--- OUTSIDE RECORDS SUMMARY | 2023-10-30 14:48 | XMS_ITS | Continuity of Care Document ---
Author Name Unknown Organization [facility] ter Address [address] [place] [address]- Care Team Providers Care Bricklayer Helper Name Role Phone Sussy ROGERS, Bria Randolph Primary Care Physician [place] [facility] [id number] Date(s): 08/30/21 - 08/31/[address] [address]- Discharge Disposition: A-D/C Walkout Attending Physician: Not on Staff, Attending MD [...] Active Type II diabetes mellitus(Confirmed) Active Results Radiology Reports * Exam Date Time Procedure Performing Provider Status 08/30/21 6:24 PM Chest 2 Views Frontal and Lat Wendi Esteves; Gal (Verified) Notes: (Chest 2 Views Frontal and Lat) Reason For Exam: Shortness of Breath RESULT: Chest 2 Views Frontal and Lat Chest 2 Views Frontal and Lat Hx of Present Illness: From home. pt c o sob with exertion. ambulated steadily for EMS, noted to besob on exertion. ?has cardiac proceedure scheduled.; Reason: Shortness of Breath; Clinical Question(s): CHF COMPARISON: None. FINDINGS: LINES AND TUBES: None. LUNGS AND PLEURA: Clear lungs. Normal pulmonary vascularity. No pleural effusion. No pneumothorax. HEART, MEDIASTINUM AND ELINOR: Heart is normal in size. Normal upper mediastinal and hilar contour. BONES AND SOFT TISSUES: No acute abnormality. IMPRESSION: No acute abnormality. WSN: [id number] Ordering Physician: Feli Martinez Dictated By: Amparo Hernandez MD, I Dictated Date/Time: 08/30/21 6:51 pm Reviewed By: Amparo Hernandez MD, I Signed By: Amparo Hernandez MD, I Signed Date/Time: 08/30/21 6:51 pm Transcribed By: KALPESH Transcribed Date/Time: 08/30/21 6:49 pm Vital Signs Most recent to oldest [Reference Range]: 1 2 Oxygen Saturation [94-100 %] 94 % (08/30/21 3:10 PM) 98 % (08/30/21 2:46 PM) Pulse Rate [55-90 bpm] 86 bpm (08/30/21 3:10 PM) Blood Pressure [90-138/55-84 mm Hg] 123/ 48mm Hg (08/30/21 3:10 PM) Respiratory Rate [16-30 br/min] 18 br/mi n (08/30/21 3:10 PM) Temperature [96.8-100.4 DegF] 99.1 DegF (08/30/21 3:10 PM) Liters per Minute 2 L/min (08/30/21 2:46 PM) Mode of Delivery (Oxygen) Room air (08/30/21 3:10 PM) Nasal cannula (08/30/21 2:46 PM) Temperature Route Oral (08/30/21 3:10 PM) Social History Social History Type Response Smoking Status Never (less than 100 in lifetime) entered on: 08/01/21 Sex
--- OUTSIDE RECORDS SUMMARY | 2023-10-30 14:48 | XMS_ITS | Continuity of Care Document ---
Author Name Unknown Organization [facility] Address [address] [place] [address]- Care Team Providers Care Certified Flex Endoscope Reprocessor Name Role Phone Sussy CAR REPAIR SUPERVISOR, Bria Randolph Primary Care Physician [place] [facility] [place] - 04/29/22 [facility] [address] [place] [address]- Allergies, Adverse Reactions, Alerts Substance Reaction Severity [...] 2 Refills, Maintenance, 03/14/22 11:53:00 EDT, Tablet, [facility], Partial fill upon patient request if the prescription is for a schedule II opioid drug., 160, cm, 03/14/22 8:36:0... Start Date: 03/14/22 Status: Ordered atorvastatin 40 mg oral tablet 1 tablet = 40 mg, By Mouth, Daily, # 30 tablet, 0 Refills, Maintenance, 03/14/22 11:53:00 EDT, Tablet, [facility], Partial fill upon patient [...] 0 Refills, Maintenance, 03/14/22 11:51:00 EDT, Injection, [facility], Partial fill upon patient request if the prescription is for a schedule II opioid drug., 160, cm, 02/19... Start Date: 03/14/22 Status: Ordered metoprolol 50 mg oral tablet 50 mg, 1, tablet, By Mouth, 2 times a day, # 60 tablet, Refills 0, Tot. Refills 0, Maintenance, 03/14/22 11:53:00 EDT, Route to Pharmacy Electronically, [facility], Partial fill upon patient [...] Tablet Start Date: 02/26/22 Status: Ordered Pen [place], 31 G x 5 mm BD Ultra [...] Refills, Maintenance, 04/02/22 13:45:00 EDT, Tablet, [facility], Partial fill upon patient request if [...]
--- OUTSIDE RECORDS SUMMARY | 2023-10-30 14:48 | XMS_ITS | Continuity of Care Document ---
Author Name Unknown Organization [facility] Address [address] [place] [address]- Care Team Providers Care Steno Pool Supervisor Name Role Phone Sussy ROGERS, Bria Randolph Primary Care Physician Encounter [facility] [place] Date(s): 12/26/22 - 01/25/23 [facility] [address] [place] [address]- Attending Physician: Mike Wiggins Admitting Physician: Mike Wiggins Referring Physician: AdmtrMike Allergies, Adverse Reactions, Alerts [...] 2 Refills, Maintenance, 03/14/22 11:53:00 EDT, Tablet, [facility], Partial fill upon patient request if the prescription is for a schedule II opioid drug., 160, cm, 03/14/22 8:36:0... Start Date: 03/14/22 Status: Ordered atorvastatin 40 mg oral tablet 1 tablet = 40 mg, By Mouth, Daily, # 30 tablet, 0 Refills, Maintenance, 03/14/22 11:53:00 EDT, Tablet, [facility], Partial fill upon patient [...] 0 Refills, Maintenance, 03/14/22 11:51:00 EDT, Injection, [facility], Partial fill upon patient request if the prescription is for a schedule II opioid drug., 160, cm, 02/19... Start Date: 03/14/22 Status: Ordered lidocaine 5% topical film See [...] 03/14/22 11:53:00 EDT, Route to Pharmacy Electronically, [facility], Partial fill upon patient [...] Date: 03/14/22 Stop Date: 12/09/22 Status: Ordered Pen [place], 31 G x 5 mm BD Ultra [...] 0 Refills, Maintenance, 04/02/22 13:45:00 EDT, Tablet, [facility], Partial fill upon [...] 100 in lifetime) entered on: 08/01/21 Sex Note * Event Display: Non BH Lab Results Authored Date: * Event Display: Cardiology Office Note, Non-BH Authored Date: * Event Display: Non BH Lab Results Authored Date: * Event Display: Non BH Cardiovascular Results Authored Date: Patient Care team information Care Team Personnel Name: Ana Rosa Gutierrez RN Position: S RN Member Role: Primary Care Nurse Name: Bria Hi NP Position: Reference Physician Member Role: PCP Address: Address: [address] [place] [id number] Name: Monika Johnson RN Position: [facility] RN Supv Member Role: Primary Care Nurse Name: Laquita Zamora RN Position: [facility] RN Supv Member Role: Primary Care Nurse Name: Ryan Ponce RN Position: S RN Member Role: Primary Care Nurse Name: Maddison Aquino Position: [facility] Outreach Member Role: Lifetime Consulting Physician Name: Alia Abdi RN Position: [facility] RN Member Role: Primary Care Nurse Name: Miryam Lucio RN Position: [facility] RN Member Role: Primary Care Nurse Care Team Related Persons Name: YULIANA BERGERON Address: home [address] [place] [address] Name: ANGELINA CHEN
--- OUTSIDE RECORDS SUMMARY | 2023-10-30 14:48 | XMS_ITS | Continuity of Care Document ---
Author Name Unknown Organization [facility] Ahsan grace Address [address] [place] [phone]- Care Team Providers Care Card Sorter Name Role Phone Sussy MULTI DISCIPLINED LANGUAGE ANALYST, Bria Randolph Primary Care Physician [place] [facility] [place] 02[place]/22 [facility] [address] [place] [phone]- Attending Physician: Herve AVILA, Nadeem Kapoor Referring Physician: Felicia Yo MD Allergies, Adverse Reactions, Alerts Substance Reaction Severity Status aspirin 1 Mild Active penicillins 2 Severe Active 1rash 2angioedema rash Immunizations Given and Recorded Vaccine Date Status Refusal Reason SARS-CoV-2 (COVID-19) mRNA-1273 vaccine 01/23/21 R ecorded SARS-CoV-2 (COVID-19) mRNA-1273 vaccine 12/26/20 R ecorded Medications azithromycin 250 mg oral tablet 1 pack/packet, By Mouth, Once, # 6 tablet, 0 Refills, Maintenance, 02/16/22 12:41:00 EDT, Tablet, Partial fill upon patient request if the prescription is for a schedule II opioid drug. Start Date: 02/16/22 Stop Date: 02/17/22 Status: Ordered azithromycin 250 mg oral tablet 1 tablet = 250 mg, By Mouth, Daily, for 3 days, # 3 tablet, 0 Refills, Acute 02/19/22 14:50:00 EDT,02/16/22 14:50:00 EDT, Tablet, [facility], Partial fill upon patient request ifthe prescription is for a schedule II opioid drug.,... Start Date: 02/16/22 Stop Date: 02/19/22 Status: Ordered carvedilol 3.125 mg oral tablet [...] opioid drug. Start Date: 08/01/21 Status: Ordered NovoLOG FlexPen 100 units/mL injectable [...] recent to oldest [Reference Range]: 1 Height 165 cm (02/09/22 3:33 PM) Weight 74.1 kg (02/09/22 3:33 PM) Oxygen Saturation [94-100 %] 97 % (02/09/22 3:33 PM) Pulse Rate [55-90 bpm] 84 bpm (02/09/22 3:33 PM) Body Mass Index [18.5-24.99] 27.22 *H* (02/09/22 3:33 PM) Blood Pressure [90-138/55-84 mm Hg] 102/ 58mm Hg (02/09/22 3:33 PM) Respiratory Rate [16-30 br/min] 18 br/mi n (02/09/22 3:33 PM) Mode of Delivery (Oxygen) Room air (02/09/22 3:33 PM) Blood pressure sites Arm, right (02/09/22 3:33 PM) Weight Obtained Via Patient/family state d (02/09/22 3:33 PM) Social History Social History Type Response Smoking Status Never (less than 100 in lifetime) entered on: 08/01/21 Sex
--- OUTSIDE RECORDS SUMMARY | 2023-10-30 14:48 | XMS_ITS | Continuity of Care Document ---
Author Name Unknown Organization [facility] Ahsan grace Address [address] [place] [phone]- Care Team Providers Care Felt Cementer Name Role Phone Sussy SEASONAL CLERK, Bria Randolph Primary Care Physician [place] [facility] [place] 05/02/22 [facility] Surgery [address] [place] [phone]- Attending Physician: Admrufus, Mike Admitting Physician: Admtr, [id number] Referring Physician: Admtr, [...] 2 Refills, Maintenance, 03/14/22 11:53:00 EDT, Tablet, [facility], Partial fill upon patient request if the prescription is for a schedule II opioid drug., 160, cm, 03/14/22 8:36:0... Start Date: 03/14/22 Status: Ordered atorvastatin 40 mg oral tablet 1 tablet = 40 mg, By Mouth, Daily, # 30 tablet, 0 Refills, Maintenance, 03/14/22 11:53:00 EDT, Tablet, [facility], Partial fill upon [...] 0 Refills, Maintenance, 03/14/22 11:51:00 EDT, Injection, [facility], Partial fill upon patient request if the prescription is for a schedule II opioid drug., 160, cm, 02/19... Start Date: 03/14/22 Status: Ordered metoprolol 50 mg oral tablet 50 mg, 1, tablet, By Mouth, 2 times a day, # 60 tablet, Refills 0, Tot. Refills 0, Maintenance, 03/14/22 11:53:00 EDT, Route to Pharmacy Electronically, [facility], Partial fill upon [...] Tablet Start Date: 02/26/22 Status: Ordered Pen [place], 31 G x 5 mm BD Ultra [...] 0 Refills, Maintenance, 04/02/22 13:45:00 EDT, Tablet, [facility], Partial fill upon patient request [...]
--- OUTSIDE RECORDS SUMMARY | 2023-10-30 14:48 | XMS_ITS | Continuity of Care Document ---
Author Name Unknown Organization [facility] Ahsan grace Address [address] [place] [phone]- Care Team Providers Care Cement Sack Breaker Name Role Phone Sussy ROGERS, Bria Randolph Primary Care Physician [place] [facility] [place] Date(s): 05/09/22 - 06/08/22 [facility] Cardiac Surgery [address] [place] [phone]- Allergies, Adverse Reactions, Alerts Substance Reaction Severity [...] 2 Refills, Maintenance, 03/14/22 11:53:00 EDT, Tablet, [facility], Partial fill upon patient request if the prescription is for a schedule II opioid drug., 160, cm, 03/14/22 8:36:0... Start Date: 03/14/22 Status: Ordered atorvastatin 40 mg oral tablet 1 tablet = 40 mg, By Mouth, Daily, # 30 tablet, 0 Refills, Maintenance, 03/14/22 11:53:00 EDT, Tablet, [facility], Partial fill upon patient [...] 0 Refills, Maintenance, 03/14/22 11:51:00 EDT, Injection, [facility], Partial fill upon patient request if the prescription is for a schedule II opioid drug., 160, cm, 02/19... Start Date: 03/14/22 Status: Ordered metoprolol 50 mg oral tablet 50 mg, 1, tablet, By Mouth, 2 times a day, # 60 tablet, Refills 0, Tot. Refills 0, Maintenance, 03/14/22 11:53:00 EDT, Route to Pharmacy Electronically, [facility], Partial fill upon patient [...] Tablet Start Date: 02/26/22 Status: Ordered Pen [place], 31 G x 5 mm BD Ultra [...] 0 Refills, Maintenance, 04/02/22 13:45:00 EDT, Tablet, [facility], Partial fill upon patient request if the prescription is for a schedule II opioid drug., 160, cm, 04/02/22 13:11:00... Start Date: 04/02/22 Stop Date: 04/16/22 Status: Ordered Problem List Condition Effective Dates Status Health Status Inform ant Anxiety(Confirmed) Active Chronic low back pain(Confirmed) Active Depression(Confirmed) Active Heart disease(Confirmed) Active Hypothyroid(Confirmed) Active Obese class I(Confirmed) Active Rheumatic aortic stenosis(Confirmed) Active Type II diabetes mellitus(Confirmed) Active Social History Social History Type Response Smoking Status Never (less than 100 in lifetime) entered on: 08/01/21 Sex
--- OUTSIDE RECORDS SUMMARY | 2023-10-30 14:48 | XMS_ITS | Continuity of Care Document ---
Author Name Unknown Organization [facility] Address [address] [place] [phone]- Care Team Providers Care Rn Nicu Name Role Phone Sussy SHOE STICKS REPAIRER, Bria Randolph Primary Care Physician Encounter 03/15/22 - 05/11/22 [facility] [address] [place] [phone]- Discharge Disposition: GOALS MET Referring Physician: Cleopatra SHOE STICKS REPAIRER, Ailyn Allergies, Adverse Reactions, Alerts Substance Reaction [...] 2 Refills, Maintenance, 03/14/22 11:53:00 EDT, Tablet, [facility], Partial fill upon patient request if the prescription is for a schedule II opioid drug., 160, cm, 03/14/22 8:36:0... Start Date: 03/14/22 Status: Ordered atorvastatin 40 mg oral tablet 1 tablet = 40 mg, By Mouth, Daily, # 30 tablet, 0 Refills, Maintenance, 03/14/22 11:53:00 EDT, Tablet, [facility], Partial fill upon patient [...] 0 Refills, Maintenance, 03/14/22 11:51:00 EDT, Injection, [facility], Partial fill upon patient request if the prescription is for a schedule II opioid drug., 160, cm, 02/19... Start Date: 03/14/22 Status: Ordered metoprolol 50 mg oral tablet 50 mg, 1, tablet, By Mouth, 2 times a day, # 60 tablet, Refills 0, Tot. Refills 0, Maintenance, 03/14/22 11:53:00 EDT, Route to Pharmacy Electronically, [facility], [...] Tablet Start Date: 02/26/22 Status: Ordered Pen [place], 31 G x 5 mm BD Ultra [...] 0 Refills, Maintenance, 04/02/22 13:45:00 EDT, Tablet, [facility], Partial fill upon patient request [...]
[2023-10-30 14:52] VITALS: BP 122/66; PULSE 67; RESP 16; O2SAT 96; BMI 30.4
[2023-10-30 16:03] VITALS: BP 118/78; BP 126/70; PULSE 70; PULSE 73; RESP 14; O2SAT 96; O2SAT 97
== END 2023-10-30 15:55 | disposition home or self-care (01) ==
PROVIDERS: Visit Provider Anesthesiology
DX: M47.816 Spondylosis without myelopathy or radiculopathy, lumbar region (principal); M54.16 Radiculopathy, lumbar region; M54.51 Vertebrogenic low back pain; M51.36 Other intervertebral disc degeneration, lumbar region; G89.4 Chronic pain syndrome
CPT/HCPCS: 17999; 99213

== ENCOUNTER → 2023-11-08 09:12 | Day surgery (SDC) | payer OTHER, SELFPAY ==
[2023-10-01 15:15] VITALS: BMI 31.6
--- NOTE | 2023-11-07 09:22 | HO.ANESPROP2 ---
HPI - Anesthesia Eval Consult details Narrative: 78yo F for L4-L5, L5-S1 Transforaminal Epidural Steriod Injection Follows [facility]. S/P AVR 2021, CHF, carotid ds. Last seen 05/2023. Plan for echo and carotid check 05/2024. Pt no longer on eliquis per surgical workload messages. Anesthesia Pre-Procedure Meds Is the patient on any of the following meds?: Dulaglutide (Trulicity) If Yes to any meds - educate patient: Pt education - increased risk of aspiration and Pt education - possibility of cancelled proc at provider's discretion PMFSH Active Problems Active Problems: All Active Problems (Updated 10/01/23 @ 16:08 by Meghan Rivera RN) Chronic pain syndrome (Acute) Disc degeneration, lumbar (Acute) Vertebrogenic low back pain (Acute) Coronary artery arteriosclerosis (Acute) Sacroiliac joint pain (Acute) Spondylosis of lumbar spine (Acute) Lumbar radiculopathy (Acute) Past Medical History Medical History Rheumatic heart disease SOB (shortness of breath) Thrombocytopenia Renal failure CHF (congestive heart failure) Aortic valve disorder Chest pain Diabetes PND (paroxysmal nocturnal dyspnea) Carotid artery disease Walker as ambulation aid Balance problem Tremor Depression Hypothyroid Hepatitis B Aortic stenosis High cholesterol Hypertension Diabetes Family History Family history of problems with anesthesia: No Surgical History Surgical History History of hysterectomy S/P epidural steroid injection (~08/24/22) S/P AVR (~02/2022) H/O cardiac catheterization History of Problems with Anesthesia: Yes Social History Social History Household Members: Family Housing: Apartment Are you a primary director of patient care to a significant other at home: No Do you presently have visiting nurse or other home services: Yes (DIABETES EDUCATION COORDINATOR 5 hours per day) Patient Tobacco Use Status: Never used Tobacco Use of substances other than those prescribed or required for medical reasons: No Are you DNR?: No Advance Directives: No Advance Directives Information Provided: Yes Advance Directives on File: No Meds Allergies Allergy/AdvReac Type Severity Reaction Status Date / Time aspirin [ASA] Allergy Swelling Verified 10/30/23 14:53 heparin Allergy blood Verified 10/30/23 14:53 clot oxycodone Allergy Hallucinati Verified 11/08/23 10:45 ons Penicillins Allergy Swelling Verified 10/30/23 14:53 Home Medications Medication Instructions Recorded Confirmed Last Taken Type duloxetine 30 mg capsule,delayed 30 mg PO DAILY 05/31/22 10/01/23 Unknown History release insulin glargine 100 unit/mL (3 25 unit subcut BEDTIME 05/31/22 10/01/23 Unknown History mL) subcutaneous pen (Lantus Solostar U-100 Insulin) pen needle, diabetic 32 gauge x #50 ea 05/31/22 Unknown History (UltiCare Pen Needle) hydroxyzine HCl 10 mg tablet 10 mg PO BID 06/08/22 10/01/23 08/24/22 History torsemide 20 mg tablet 40 mg PO DAILY 06/08/22 06/08/22 Unknown History tramadol 50 mg tablet 50 mg PO BID PRN Pain 06/08/22 10/01/23 Unknown History docusate sodium 100 mg capsule 100 mg PO BID 08/19/23 10/01/23 Unknown History ferrous gluconate 324 mg (38 mg 324 mg PO DAILY 08/19/23 10/01/23 Unknown History iron) tablet trazodone 50 mg tablet 50 mg PO BEDTIME 08/19/23 10/01/23 Unknown History apixaban 2.5 mg tablet (Eliquis) 2.5 mg PO BID 10/01/23 10/01/23 Unknown History dulaglutide 1.5 mg/0.5 mL 1.5 mg subcut QWEEK 10/01/23 10/01/23 Unknown History subcutaneous [facility] gabapentin 100 mg capsule 100 mg PO TID 10/01/23 10/01/23 Unknown History propranolol 80 mg capsule,extended 80 mg PO DAILY 10/01/23 10/01/23 Unknown History release 24 hr Exam Height,Weight and Vital Signs: Height 5 ft 4 in Weight 83.461 kg Pertinent Lab Results Pertinent Lab Results: Laboratory Tests 02/24/23 09/16/23 09/16/23 10:47 16:52 16:52 WBC 6.9 Hgb 10.0 L Hct 31.8 L Plt Count 247 Sodium 138 Potassium 4.4 Chloride 96 Carbon Dioxide 34 H BUN 18 H Creatinine 1.15 Narrative Narrative: ECHO 05/2023 1. LV size is nml 2. Mild conc LVH 3. Overall LV sys function is nml with EF 65-70% 4. LA mildly dilated 5. Normally functioning bioprosthetic Aortic valve 6. Ascending aorta dilated, 38mm 7. c/w 2021, increase in transaortic gradients Assessment and Plan Assessment Anesthesia Assessment: Chart Reviewed Final Anesthetic Review Family History of Problems with Anesthesia: No History of Problems with Anesthesia: Yes
--- NOTE | ~2023-11-08 | FL_ITS ---
EXAMINATION: XR FLUOROSCOPY WITH IMAGES CLINICAL INFORMATION: L4-L5 and L5-S1 transforaminal epidural steroid injection. COMPARISON: Radiographs dated 04/01/2023; fluoroscopic guidance dated 08/24/2022; MRI lumbar spine dated 06/28/2022. TECHNIQUE: Fluoroscopy Supervised By: Dr. Sergio Latham. Fluoroscopy Time: 0.9 minutes. Cumulative Dose: 29.2 mGy. DAP: 4.92 Gycm2. Images: 6. FINDINGS: The submitted images show an injection needle and injected contrast at the left L4-L5 and L5-S1 levels. FL/FL guidance in OR IMPRESSION: Intraoperative fluoroscopic guidance is provided during lumbar pain management injections. Please see the patient's Operative Report for full procedural details.
[2023-11-08 10:06] VITALS: BP 136/44; PULSE 86; RESP 16; TEMP 36.2; O2SAT 98
[2023-11-08] MEDS: Lactated Ringers 1,000 ML 100 ML IVCONT (10:14)
[2023-11-08 10:16] LABS: Glucose, Whole Blood 201 mg/dL (60-115)
--- NOTE | 2023-11-08 10:21 | P.CONAN_ITS ---
[facility], [facility] Active Problems Active Problems: All Active Problems (Updated 10/01/23 @ 16:08 by Meghan Rivera RN) Chronic pain syndrome (Acute) Disc degeneration, lumbar (Acute) Vertebrogenic low back pain (Acute) Coronary artery arteriosclerosis (Acute) Sacroiliac joint pain (Acute) Spondylosis of lumbar spine (Acute) Lumbar radiculopathy (Acute) Past Medical History Medical History Rheumatic heart disease SOB (shortness of breath) Thrombocytopenia Renal failure CHF (congestive heart failure) Aortic valve disorder Chest pain Diabetes PND (paroxysmal nocturnal dyspnea) Carotid artery disease Walker as ambulation aid Balance problem Tremor Depression Hypothyroid Hepatitis B Aortic stenosis High cholesterol Hypertension Diabetes Family History Family history of problems with anesthesia: No Surgical History Surgical History History of hysterectomy S/P epidural steroid injection (~08/24/22) S/P AVR (~02/2022) H/O cardiac catheterization History of Problems with Anesthesia: Yes Social History Social History Household Members: Family Housing: Apartment Are you a primary career development director to a significant other at home: No Do you presently have visiting nurse or other home services: Yes (CODING DIRECTOR 5 hours per day) Patient Tobacco Use Status: Never used Tobacco Use of substances other than those prescribed or required for medical reasons: No Are you DNR?: No Advance Directives: No Advance Directives Information Provided: Yes Advance Directives on File: No Meds Allergies Allergy/AdvReac Type Severity Reaction Status Date / Time aspirin [ASA] Allergy Swelling Verified 10/30/23 14:53 heparin Allergy blood Verified 10/30/23 14:53 clot Penicillins Allergy Swelling Verified 10/30/23 14:53 Active Medications: Current Medications Lactated Ringer's (Lr) 1,000 mls @ 100 mls/hr IVCONT .Q10H NOLAN Last Admin: 11/08/23 10:14 Dose: 100 mls/hr Ondansetron HCl (Ondansetron Hcl 4 Mg/2 Ml Vial) 4 mg IVPUSH ONCE PRN PRN Reason: Nausea and Vomiting Home Medications Medication Instructions Recorded Confirmed Last Taken Type duloxetine 30 mg capsule,delayed 30 mg PO DAILY 05/31/22 10/01/23 Unknown History release insulin glargine 100 unit/mL (3 25 unit subcut BEDTIME 05/31/22 10/01/23 Unknown History mL) subcutaneous pen (Lantus Solostar U-100 Insulin) pen needle, diabetic 32 gauge x #50 ea 05/31/22 Unknown History (UltiCare Pen Needle) hydroxyzine HCl 10 mg tablet 10 mg PO BID 06/08/22 10/01/23 08/24/22 History torsemide 20 mg tablet 40 mg PO DAILY 06/08/22 06/08/22 Unknown History tramadol 50 mg tablet 50 mg PO BID PRN Pain 06/08/22 10/01/23 Unknown History docusate sodium 100 mg capsule 100 mg PO BID 08/19/23 10/01/23 Unknown History ferrous gluconate 324 mg (38 mg 324 mg PO DAILY 08/19/23 10/01/23 Unknown History iron) tablet trazodone 50 mg tablet 50 mg PO BEDTIME 08/19/23 10/01/23 Unknown History apixaban 2.5 mg tablet (Eliquis) 2.5 mg PO BID 10/01/23 10/01/23 Unknown History dulaglutide 1.5 mg/0.5 mL 1.5 mg subcut QWEEK 10/01/23 10/01/23 Unknown History subcutaneous pen injector (Trulicity) gabapentin 100 mg capsule 100 mg PO TID 10/01/23 10/01/23 Unknown History propranolol 80 mg capsule,extended 80 mg PO DAILY 10/01/23 10/01/23 Unknown History release 24 hr Exam Height,Weight and Vital Signs: Height 5 ft 4 in Weight 83.461 kg Last Vital Signs Temp 97.1 F 11/08/23 10:06 Pulse 86 11/08/23 10:06 Resp 16 11/08/23 10:06 BP 136/44 L 11/08/23 10:06 Pulse Ox 98 11/08/23 10:06 O2 Del Method Room Air 11/08/23 10:06 Pertinent Lab Results Pertinent Lab Results: Laboratory Tests 11/08/23 10:12 POC Glucose 201 H Assessment and Plan Final Anesthetic Review Family History of Problems with Anesthesia: No History of Problems with Anesthesia: Yes
--- NOTE | 2023-11-08 10:45 | MHC.SHP ---
Pre-Procedural Eval Section A Date of Service: 11/08/23 The patient is an INPATIENT: No Changes since office visit: Yes Patient answered all questions The History & Physical has been completed within 30 days and I have reviewed it.: No Section B Chief Complaint: Radiculopathy, lumbar region Details of Present Illness: as above Relevant Family History (Specify if Yes): No Relevant Social History: None Present Medications: None Medical History: No relevant PMH History of Previous Operations: No relevant previous surgery Allergies: Allergies Allergy/AdvReac Type Severity Reaction Status Date / Time aspirin [ASA] Allergy Swelling Verified 10/30/23 14:53 heparin Allergy blood Verified 10/30/23 14:53 clot oxycodone Allergy Hallucinati Verified 11/08/23 10:45 ons Penicillins Allergy Swelling Verified 10/30/23 14:53 Review of Systems Sugical H&P ROS: Negative: Constitution, Respiratory, Neurological, Psychiatric, Allergic/Immunologic, Gastrointestinal, Genitourinary, Musculoskeletal, Integumentary, Endocrine and Eyes/Ears/Nose/Throat and Yes, Specify: Cardiovascular (CAD, S/p CABG, ) and Hem-Onc (reports stopping all anticoags 2 months ago) Exam Surgical H&P Exam: Normal: HEENT, Normal: Heart, Normal: Lungs, Normal: Extremities, Normal: Abdomen, Normal: Skin and Normal: Neurological Plan Diagnosis/Plan: Unchanged I have reviewed the history and physical and performed a pertinent physical examination on my patient. No changes have occurred unless specified. Time Spent With Patient Time: Total time managing care of this patient today ____ minutes.
--- NOTE | 2023-11-08 10:45 | W.PM.OPN ---
Operative Note Operative Note Date of Service: 11/08/23 Narrative: TRANSFORAMINAL EPIDURAL STEROID INJECTION L5-S1 AND L4-5 ON THE LEFT. THE PATIENT CAME TO THE OPERATING ROOM AFTER OBTAINING INFORMED CONSENT. THE RISKS OF THE PROCEDURE WERE DELINEATED THE RISK OF BLEEDING INFECTION PERIPHERAL NERVE DAMAGE EPIDURAL HEMATOMA EPIDURAL ABSCESS AND OTHER UNSPECIFIED RISKS. THE PATIENT WAS POSITIONED PRONE ON THE OPERATING TABLE [employer] MONITORS WERE APPLIED, PATIENT WAS NOT SEDATED. THE PATIENTS H/O ANTICOAGULANTS ADMINISTRATION WAS EXPLORED BEFORE THE PROCEDURE AND THE PATIENT STATED THAT ALL ANTIOCOAGULANTS INCLUDING BABY ASPIRIN WERE STOPPED 1 MONTH AGO. THE CONVERSATION WAS INTERPRETED BY A CERTIFIED HOSPITAL CHAIN MAKER HAND (see the informed consent) ? TIME-OUT WAS OBTAINED DELINEATING CORRECT SIDE AND SITE OF THE PROCEDURE, PATIENT NAME AND DATE OF , NEED OF THE ANTIBIOTIC, RISK OF FIRE. tHE PATIENT WAS POSITIONED PRONE ON THE OR TABLE WITH THE PILLOW UNDER HER ABDOMEN. ? LUMBAR AREA OF THE PATIENT WAS PREPPED WITH CHLORAPREP AND DRAPED WITH STERILE UTILITY TOWELS, C-ARM WAS BROUGHT OVER THE OPERATING FIELD AND SQ PICTURE OF L4 VERTEBRA WAS DELINEATED ON THE SCREEN. C-ARM WAS TILTED 30 ? TO THE left SIDE AND PICTURE OF THE left SUPERIOR ARTICULAR PROCESS OF L5 VERTEBRA L4 VERTEBRA IMAGE WAS OBTAINED ON THE SCREEN. IN THE PROJECTION OF THE UPPER PORTION OF THE SAP TO THE SKIN WAS CHOSEN A STARTING POINT OF THE INJECTION. 22 GAUGE 5 IN SPINAL NEEDLE WAS INSERTED THROUGH THE SKIN AND STARTED TO ADVANCE TO SUPERIOR ARTICULAR PROCESS OF L5 IN OBLIQUE, ANTERIOR POSTERIOR,AND LATERAL VIEWS IN TUNNEL VISION FASHION. WHEN ON LATERAL VIEW THE NEEDLE ENTERED THE MOST POSTERIOR AND INFERIOR PORTION OF THE FORAMINA INJECTION OF THE CONTRAST PERFORMED DELINEATING ANTERIOR EPIDURAL SPREAD OF THE CONTRAST. HOWEVER WHEN WE SWITCHED THE C-ARM TO THE ANTERIOR POSTERIOR VIEW IN ADDED MORE CONTRAST WE WERE ABLE TO SEE VASCULAR RUNOFF. THE NEEDLE WAS REDIRECTED SLIGHTLY MORE CEPHALAD AND REPEAT INJECTION OF THE CONTRAST INJECTION WAS PERFORMED AGAIN. THIS TIME THE WERE NO VASCULAR UPTAKE ON THE LIFE IMAGE. EPIDURAL AND PERINEURAL SPREAD OF THE CONTRAST WAS OBSERVED. AFTER THAT 3 CC OF LIDOCAINE 1% MIXED WITH KENALOG 20 MG WAS INJECTED INTO THE NEEDLE. THE NEEDLE WAS REMOVED AND ATTENTION WAS CONCENTRATED ON L5-S1 INTERVERTEBRAL SPACE ON THE LEFT. THE PROCEDURE THERE WAS REPEATED IN A SIMILAR FASHION HOWEVER NO VASCULAR RUNOFF WAS OBSERVED AT THIS TIME. THE AMOUNT OF INJECTATE WAS THE SAME. UPON COMPLETION OF THE INJECTION THE NEEDLE WAS REMOVED AND 2 STERILE BAND-AIDS WERE APPLIED. ? PATIENT TOLERATED PROCEDURE WELL SHE WAS AWAKEN TAKEN OUTSIDE OF THE OPERATING ROOM TO PACU WHERE SHE RECOVERED UNEVENTFULLY.
--- NOTE | 2023-11-08 10:52 | HO.ANESPROP2 ---
[facility] Active Problems Active Problems: All Active Problems (Updated 10/01/23 @ 16:08 by Meghan Rivera RN) Chronic pain syndrome (Acute) Disc degeneration, lumbar (Acute) Vertebrogenic low back pain (Acute) Coronary artery arteriosclerosis (Acute) Sacroiliac joint pain (Acute) Spondylosis of lumbar spine (Acute) Lumbar radiculopathy (Acute) Past Medical History Medical History Rheumatic heart disease SOB (shortness of breath) Thrombocytopenia Renal failure CHF (congestive heart failure) Aortic valve disorder Chest pain Diabetes PND (paroxysmal nocturnal dyspnea) Carotid artery disease Walker as ambulation aid Balance problem Tremor Depression Hypothyroid Hepatitis B Aortic stenosis High cholesterol Hypertension Diabetes Family History Family history of problems with anesthesia: No Surgical History Surgical History History of hysterectomy S/P epidural steroid injection (~08/24/22) S/P AVR (~02/2022) H/O cardiac catheterization History of Problems with Anesthesia: Yes Social History Social History Household Members: Family Housing: Apartment Are you a primary child care provider to a significant other at home: No Do you presently have visiting nurse or other home services: Yes (GEOMETRY TUTOR 5 hours per day) Patient Tobacco Use Status: Never used Tobacco Use of substances other than those prescribed or required for medical reasons: No Are you DNR?: No Advance Directives: No Advance Directives Information Provided: Yes Advance Directives on File: No Meds Allergies Allergy/AdvReac Type Severity Reaction Status Date / Time aspirin [ASA] Allergy Swelling Verified 10/30/23 14:53 heparin Allergy blood Verified 10/30/23 14:53 clot oxycodone Allergy Hallucinati Verified 11/08/23 10:45 ons Penicillins Allergy Swelling Verified 10/30/23 14:53 Active Medications: Current Medications Lactated Ringer's (Lr) 1,000 mls @ 100 mls/hr IVCONT .Q10H NOLAN Last Admin: 11/08/23 10:14 Dose: 100 mls/hr Ondansetron HCl (Ondansetron Hcl 4 Mg/2 Ml Vial) 4 mg IVPUSH ONCE PRN PRN Reason: Nausea and Vomiting Home Medications Medication Instructions Recorded Confirmed Last Taken Type duloxetine 30 mg capsule,delayed 30 mg PO DAILY 05/31/22 10/01/23 Unknown History release insulin glargine 100 unit/mL (3 25 unit subcut BEDTIME 05/31/22 10/01/23 Unknown History mL) subcutaneous pen (Lantus Solostar U-100 Insulin) pen needle, diabetic 32 gauge x #50 ea 05/31/22 Unknown History (UltiCare Pen Needle) hydroxyzine HCl 10 mg tablet 10 mg PO BID 06/08/22 10/01/23 08/24/22 History torsemide 20 mg tablet 40 mg PO DAILY 06/08/22 06/08/22 Unknown History tramadol 50 mg tablet 50 mg PO BID PRN Pain 06/08/22 10/01/23 Unknown History docusate sodium 100 mg capsule 100 mg PO BID 08/19/23 10/01/23 Unknown History ferrous gluconate 324 mg (38 mg 324 mg PO DAILY 08/19/23 10/01/23 Unknown History iron) tablet trazodone 50 mg tablet 50 mg PO BEDTIME 08/19/23 10/01/23 Unknown History apixaban 2.5 mg tablet (Eliquis) 2.5 mg PO BID 10/01/23 10/01/23 Unknown History dulaglutide 1.5 mg/0.5 mL 1.5 mg subcut QWEEK 10/01/23 10/01/23 Unknown History subcutaneous pen injector (Trulicity) gabapentin 100 mg capsule 100 mg PO TID 10/01/23 10/01/23 Unknown History propranolol 80 mg capsule,extended 80 mg PO DAILY 10/01/23 10/01/23 Unknown History release 24 hr Exam Height,Weight and Vital Signs: Height 5 ft 4 in Weight 83.461 kg Last Vital Signs Temp 97.1 F 11/08/23 10:06 Pulse 86 11/08/23 10:06 Resp 16 11/08/23 10:06 BP 136/44 L 11/08/23 10:06 Pulse Ox 98 11/08/23 10:06 O2 Del Method Room Air 11/08/23 10:06 Pertinent Lab Results Pertinent Lab Results: Laboratory Tests 11/08/23 10:12 POC Glucose 201 H Airway Mallampati Class: III TM Dist: >3cm Neck ROM: Full Partial: Upper and Lower Loose/Missing/Broken Teeth: Yes, Upper and Lower Heart: rrr Lungs: clear Assessment and Plan Final Anesthetic Review Family History of Problems with Anesthesia: No History of Problems with Anesthesia: Yes NPO: Yes ASA Class: IV and V (no) Final Preanesthetic Review: No Changes in Pt Med Stat, Meds/Allgs Chart Reviewed, Consent Obtained/Reviewed and Anes Risks/Benef Reviewed Patient Risk: High Procedure Risk: Low Anesthetic Plan Anesthetic Plan: MAC: Disposition: Standard PACU
[2023-11-08 11:46] VITALS: BP 121/64; PULSE 83; RESP 18; TEMP 36.8; O2SAT 96
--- NOTE | 2023-11-08 11:55 | PM.OP ---
Brief Operative Note Date of Service: 11/08/23 Pre-op diagnosis: DISC DEGENERATION LUMBAR, RADICULOPATHY LUMBAR. Post-op diagnosis: same Procedure: TRANSFORAMINAL EPIDURAL STEROID INJECTION LEFT L4-5 AND L5-S1. Surgeon: Sergio Latham MD Anesthesia: MAC Was an Supervisor Of Operations used for this Procedure?: No Estimated blood loss (mL): 1 Condition: stable Disposition: PACU
[2023-11-08 11:59] VITALS: BP 130/56; PULSE 77; RESP 16; TEMP 36.8; O2SAT 96
== END | disposition home or self-care (01) ==
PROVIDERS: Visit Provider Anesthesiology
PROC: (CPT 64483; principal; 2023-11-08 11:10)
DX: M54.16 Radiculopathy, lumbar region (principal); G89.4 Chronic pain syndrome; M51.36 Other intervertebral disc degeneration, lumbar region; I11.0 Hypertensive heart disease with heart failure; I50.9 Heart failure, unspecified; E11.9 Type 2 diabetes mellitus without complications; N19 Unspecified kidney failure; E78.5 Hyperlipidemia, unspecified; I05.9 Rheumatic mitral valve disease, unspecified; Z79.4 Long term (current) use of insulin; Z79.899 Other long term (current) drug therapy; Z88.0 Allergy status to penicillin; Z88.8 Allergy status to other drugs, medicaments and biological substances
CPT/HCPCS: 64483; 64484; 82947; J2704; J2795; J3010; J3301; Q9965

== ENCOUNTER → 2023-11-08 09:12 | Outpatient (BNV) | payer OTHER, SELFPAY | PROVIDERS: Visit Provider Anesthesiology | DX: M54.16 Radiculopathy, lumbar region (principal) | CPT/HCPCS: 64483 ==

== ENCOUNTER 2024-01-27 09:40 | Outpatient (REF) | payer OTHER, SELFPAY ==
[2024-01-27 12:05] LABS: MANUAL DIFF FLAG NO
[2024-01-27 12:20] LABS: Basophils Percent Auto 0.5 % (0-2); Eosinophils Absolute Auto 0.4 X10*3/uL (0.0-0.4); Eosinophils Percent Auto 4.9 % (0-4); Hematocrit 35.7 % (37.0-47.0); Hemoglobin 11.7 g/dl (12.0-16.0); Imm Gran Abs Auto 0.04 X10*3/uL (0.00-0.03); Imm Gran Pct Auto 0.5 % (0.0-0.4); Lymphocytes Absolute Auto 1.3 X10*3/uL (1.2-4.9); Lymphocytes Percent Auto 15.3 % (20-40); Mean Corpuscular HGB Conc 32.8 g/dl (31.0-35.0); Mean Corpuscular Hemoglobin 28.2 pg (27.0-33.0); Mean Platelet Volume 9.7 fL (9.4-12.3); Monocytes Absolute Auto 0.6 X10*3/uL (0.1-1.2); Monocytes Percent Auto 6.7 % (2-11); Neutrophils Absolute Auto 6.2 x10*3/uL (2.0-8.3); Neutrophils Percent Auto 72.1 % (45-73); Platelet Count 339 X10*3/uL (160-400); Red Blood Count 4.15 X10*6/uL (4.20-5.50); Red Cell Distribution Width 12.7 % (11.0-16.0); White Blood Count 8.6 X10*3/uL (4.8-10.8)
== END 2024-01-27 09:41 | disposition home or self-care (01) ==
LOC: HO.HHCL 09:40
PROVIDERS: Visit Provider General Practice
DX: D50.8 Other iron deficiency anemias (principal)
CPT/HCPCS: 36415; 85025

== ENCOUNTER 2024-01-29 14:50 | Outpatient (AMB) | payer OTHER, SELFPAY ==
--- NOTE | 2024-01-29 15:13 | MHC.OFFVIS ---
Intake Vital Signs 01/29/24 15:30 01/29/24 16:40 01/29/24 16:41 Height 5 ft 4 in Weight 184 lb BMI 31.6 BP 122/66 120/82 120/64 Blood Pressure Location Lt brachial Lt brachial Lt brachial Position Sitting Sitting Sitting Respiration 14 14 Pulse 79 77 86 Pulse Source Pulse Oximeter Pulse Oximeter Pulse Oximeter Pulse Oximetry (%) 97 98 98 Oxygen Delivery Method Room Air Room Air Room Air Comment 15 mins on Qutenza 30 mins on Qutenza Intake Visit Reasons: Qutenza/ 3 months f/u Intake Note: Patient comes in for Qutenza treatment. Reports pain 02/27. Allergies aspirin [ASA] Allergy (Verified 01/29/24 15:28) Swelling heparin Allergy (Verified 01/29/24 15:28) blood clot oxycodone Allergy (Verified 01/29/24 15:28) Hallucinations Penicillins Allergy (Verified 01/29/24 15:28) Swelling HPI HPI Comments History of Present Illness Details Floridalma is very pleasant 78 years old female who is suffering from multiple pain generators. She has a little radiculopathy of bilateral lower extremities. She also has significant bilateral neuropathic pain on the feet. She is in my office today to receive capsaicin patch 8% procedure Qutenza . The feet examination is as below. The vital signs are as below. Floridalma is here again for capsaicin patch procedure. Examination see below vital signs see below. She was subject of transforaminal epidural steroid injection L4-5 L5-S1 transforaminal epidural steroid injection on 08/24/2022. She reported some pain relieve on this procedure but no longer than 3 and half months. She is interested in repeat - of this procedure as the temporal measure to alleviate her pain. The patient reports pain greatly exacerbated with forward flexing and prolong sitting. On the MRI which was performed 1 year ago up there are some Modic type changes.Possibility exists that the the pain of this patient is actually vertebrogenic in nature. She reports exacerbation of the pain with Valsalva maneuver. This also can indicate on vertebra genic nature of the pain since the intra-abdominal increase of the pressure results in transfer of the pressure to the vertebral vascular bed and compression of the existing intervertebral lesions. The pain is exacerbated prolong sitting on standing has been taking? gabapentin and tramadol with partial relief. She has also tried topical, heat/ice and Tylenol with minimal effect. She has been advised to avoid NSAIDS due to ASA. She is currently on gabapentin 400 mg t.i.d.. [facility] Medical History Rheumatic heart disease SOB (shortness of breath) Thrombocytopenia Renal failure CHF (congestive heart failure) Aortic valve disorder Chest pain Diabetes PND (paroxysmal nocturnal dyspnea) Carotid artery disease Walker as ambulation aid Balance problem Tremor Depression Hypothyroid Hepatitis B Aortic stenosis High cholesterol Hypertension Diabetes Surgical History History of hysterectomy S/P epidural steroid injection (~08/24/22) S/P AVR (~02/2022) H/O cardiac catheterization Social History Household Members: Family Housing: Apartment Are you a primary team primary care physician to a significant other at home: No Do you presently have visiting nurse or other home services: Yes ([employer] ENGINE[employer] 5 hours per day) Patient Tobacco Use Status: Never used Tobacco Review of Systems Const All systems reviewed & are unremarkable except as noted in HPI and below Physical Exam Vital Signs: Last Vital Signs Pulse 86 01/29/24 16:41 Resp 14 01/29/24 16:41 BP 120/64 01/29/24 16:41 Pulse Ox 98 01/29/24 16:41 Oxygen Delivery Method Room Air 01/29/24 16:41 BMI result Body Mass Index 31.6 Const General: cooperative, healthy appearing, no acute distress and alert Orientation/consciousness: patient oriented x3 Limitations: no limitations HEENT Head: Yes normal to inspection, Yes normocephalic and Yes atraumatic Ears: hearing grossly normal bilaterally Eyes General: appearance normal, both eyes and all related structures Neck Neck: Yes normal visual inspection, Yes supple and Yes no JVD Resp Effort & Inspection: normal respiratory effort, able to speak in complete sentences and no audible wheezes Cardio Peripheral pulses: Peripheral pulses 2+ throughout (no appreciable rhythmic abnormalities) Back/Spine/Pelvis Other: Patient unable to walk on heels and tip toes due to pain and weakness. Can flex forward to 40-50 degrees and extend to 10 degrees before experiencing lumbar pain. Demonstrates 4/5 strength of quadriceps bilaterally as well as flexion/dorsiflexion of bilateral feet against resistance. Straight leg rise equvocal on the left and negative on the right. DTR intact and symmetrical. Report cold feet sensation secondary to diabetes and diabetic neuropathy. Thoracic/Lumbar Spine: thoracic and lumbar spine normal to inspection, No Thoracic/lumbar spine scar(s), pain with thoraco-lumbar ROM, paraspinal muscle tenderness, thoraco-lumbar ROM limited, No thoracic spinal tenderness and No lumbar spinal tenderness Sacroiliac joints: on the left tender to palpation Neuro General: patient oriented x3, moves all extremities and Normal light touch and pain sensation Extrem Other: The feet are inspected today no open wounds, no scratches, no lesions, no skin redness or irritation is noted. The feet have chronic discoloration secondary to diabetic microangiopathy. Psych Appearance: grossly normal Mental Status: mental status grossly normal Speech and movement: Normal speech and movement present Affect: normal affect Attitude: cooperative Thought process: Normal thought process present Thought content: Normal thought content present Insight: Good insight present (Psych) Judgement: Good judgement present (Psych) Office Meds capsaicin-skin cleanser 8 % topical kit Performing Provider: Sergio Latham MD Performing Location: [facility] [place] [facility] Administered by: Sergio Latham MD on 01/29/24 16:01 Dose Route Admin Location Dispensed Lot Number Expiration Date 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 COMPARISON: No relevant prior imaging. TECHNIQUE: MRI of the lumbar spine was obtained using routine sequences without contrast. FINDINGS: There is a slight grade 1 retrolisthesis of L1 on L2 and L2 on L3. Alignment is otherwise normal. Vertebral heights are preserved. No acute bone marrow signal changes. There is slight loss of intervertebral disc height and T2 signal intensity at multiple levels related to disc degeneration. The tip of the conus medullaris is located at L1. No mass effect on the conus. Visualized distal cord signal intensity is normal. At T12-L1 there is a slightly bulging disc. Bilateral facet degenerative change. No canal stenosis. No mass effect on traversing or foraminal nerve roots. At L1-L2 there is a diffusely bulging disc. Bilateral facet degenerative change. No canal stenosis. No mass effect on the traversing or foraminal nerve roots. At L2-L3 there is a diffusely bulging disc. Bilateral facet degenerative change. Mild to moderate canal stenosis. No mass effect on the traversing or foraminal nerve roots. At L3-L4 there is a small central protrusion superimposed upon a bulging disc. Bilateral facet degenerative change. Mild/moderate canal stenosis. No mass effect on the traversing or foraminal nerve roots. At L4-L5 there is a central annular fissure associated with a diffusely bulging disc. Bilateral facet degenerative change. Mild to moderate canal stenosis. Subarticular zone narrowing causes abutment and possible compression of both traversing L5 nerve roots. No foraminal nerve root compression. At L5-S1 there is an asymmetrically bulging disc to the left. Bilateral facet degenerative change. No canal stenosis. No mass effect on the traversing or foraminal nerve roots. Limited visualization of the retroperitoneal anatomy reveals no abnormal finding. Psoas and paraspinal muscle groups are symmetric. MR/MR lumbar spine wo con IMPRESSION: There is multilevel degenerative spondylosis of the lumbar spine. There is mild to moderate canal stenosis at the level of and L2-L3, L3-L4, and L4-L5. Subarticular zone narrowing at L4-L5 causes abutment and possible compression of both traversing L5 nerve roots. Otherwise no substantial mass effect on the traversing or foraminal nerve roots elsewhere within the lumbar spine. ? Assessment & Plan Assessment & Plan (1) Neuropathy, diabetic: Code(s): E11.40 - Type 2 diabetes mellitus with diabetic neuropathy, unspecified (2) Chronic pain syndrome: Code(s): G89.4 - Chronic pain syndrome (3) Disc degeneration, lumbar: Code(s): M51.36 - Other intervertebral disc degeneration, lumbar region (4) Vertebrogenic low back pain: Code(s): M54.51 - Vertebrogenic low back pain (5) Spondylosis of lumbar spine: Code(s): M47.816 - Spondylosis without myelopathy or radiculopathy, lumbar region (6) Lumbar radiculopathy: Code(s): M54.16 - Radiculopathy, lumbar region Plan Qutenza procedure see as above. The patient tolerated procedure well. Vital signs changes documented, no extremes. Next appointment is as needed. MRI evaluated, patient has low back pain might be related to vertebra genic pain. Orders: Orders AMB Capsaicin Patch - Practice Supplied 01/29/24 E11.40 - Type 2 diabetes mellitus with diabetic neuropathy, unspecified Coding Level of Care Code Est Pt Level 3 (06146) Procedure Only Diagnoses Neuropathy, diabetic E11.40 Chronic pain syndrome G89.4 Disc degeneration, lumbar M51.36 Vertebrogenic low back pain M54.51 Spondylosis of lumbar spine M47.816 Lumbar radiculopathy M54.16
[2024-01-29 15:30] VITALS: BP 122/66; PULSE 79; RESP 14; O2SAT 97; BMI 31.6
[2024-01-29 16:40] VITALS: BP 120/82; PULSE 77; O2SAT 98
[2024-01-29 16:41] VITALS: BP 120/64; PULSE 86; RESP 14; O2SAT 98
== END 2024-01-29 16:22 | disposition home or self-care (01) ==
PROVIDERS: Visit Provider Anesthesiology
DX: E11.40 Type 2 diabetes mellitus with diabetic neuropathy, unspecified (principal); G89.4 Chronic pain syndrome; M51.36 Other intervertebral disc degeneration, lumbar region; M54.51 Vertebrogenic low back pain; M47.816 Spondylosis without myelopathy or radiculopathy, lumbar region; M54.16 Radiculopathy, lumbar region
CPT/HCPCS: 17999; 99213

== ENCOUNTER → 2024-01-29 14:50 | Outpatient (BNVA) | payer OTHER, SELFPAY | PROVIDERS: Visit Provider Anesthesiology | DX: E11.40 Type 2 diabetes mellitus with diabetic neuropathy, unspecified (principal); M51.36 Other intervertebral disc degeneration, lumbar region; M54.51 Vertebrogenic low back pain; M47.816 Spondylosis without myelopathy or radiculopathy, lumbar region; M54.16 Radiculopathy, lumbar region; G89.4 Chronic pain syndrome | CPT/HCPCS: 17999; 99212; J7336 ==

== ENCOUNTER 2024-03-10 13:34 | Outpatient (REF) | payer OTHER, SELFPAY ==
--- NOTE | ~2024-03-10 | XR_ITS ---
EXAMINATION: XR SHOULDER, RIGHT CLINICAL INFORMATION: Right shoulder pain COMPARISON: None available. TECHNIQUE: AP external rotation, Grashey, scapular Y, and axillary views of the right shoulder. FINDINGS: No fracture or dislocation. Humeral head spurring Shoulder joint calcifications. Visualized ribs and lung are unremarkable. XR/XR shoulder RT min 2V IMPRESSION: Degenerative type changes and right shoulder calcifications, question calcific tendinopathy.
== END 2024-03-10 13:35 | disposition home or self-care (01) ==
LOC: HO.HHCX 13:34
PROVIDERS: Visit Provider Internal Medicine
DX: M25.511 Pain in right shoulder (principal); G89.29 Other chronic pain
CPT/HCPCS: 73030

== ENCOUNTER 2024-06-18 10:12 | Outpatient (REF) | payer OTHER, SELFPAY ==
[2024-06-18 10:33] LABS: MANUAL DIFF FLAG NO
[2024-06-18 10:45] LABS: Basophils Percent Auto 0.6 % (0-2); Eosinophils Absolute Auto 0.5 X10*3/uL (0.0-0.4); Eosinophils Percent Auto 7.6 % (0-4); Hematocrit 36.7 % (37.0-47.0); Imm Gran Abs Auto 0.01 X10*3/uL (0.00-0.03); Imm Gran Pct Auto 0.2 % (0.0-0.4); Lymphocytes Absolute Auto 1.6 X10*3/uL (1.2-4.9); Lymphocytes Percent Auto 23.7 % (20-40); Mean Corpuscular HGB Conc 32.7 g/dl (31.0-35.0); Mean Corpuscular Hemoglobin 27.9 pg (27.0-33.0); Mean Corpuscular Volume 85.3 fL (80.0-98.0); Mean Platelet Volume 9.6 fL (9.4-12.3); Monocytes Absolute Auto 0.4 X10*3/uL (0.1-1.2); Monocytes Percent Auto 6.2 % (2-11); Neutrophils Absolute Auto 4.1 x10*3/uL (2.0-8.3); Neutrophils Percent Auto 61.7 % (45-73); Platelet Count 253 X10*3/uL (160-400); Red Cell Distribution Width 12.1 % (11.0-16.0); White Blood Count 6.6 X10*3/uL (4.8-10.8)
[2024-06-18 11:29] LABS: B Type Natriuretic Peptide 131 pg/mL (<100)
[2024-06-18 11:56] LABS: Alanine Aminotransferase 9 U/L (0-31); Aspartate Amino Transferase 15 U/L (5-31); Cholesterol 219 mg/dL (<200); HDL Cholesterol 44 mg/dL (>40); LDL Cholesterol Calculated 151 mg/dL (<100); Triglycerides 120 mg/dL (<150)
== END 2024-06-18 10:13 | disposition home or self-care (01) ==
LOC: HO.LAB 10:12
PROVIDERS: PCP General Practice; Visit Provider Internal Medicine Cardiovascular Disease
DX: I50.9 Heart failure, unspecified (principal); N19 Unspecified kidney failure
CPT/HCPCS: 36415; 80061; 83880; 84450; 84460; 85025

== ENCOUNTER 2024-07-15 09:19 | Outpatient (REF) | payer OTHER, SELFPAY ==
[2024-07-15 09:47] LABS: MANUAL DIFF FLAG NO
[2024-07-15 10:05] LABS: Basophils Percent Auto 0.6 % (0-2); Eosinophils Absolute Auto 0.4 X10*3/uL (0.0-0.4); Hematocrit 33.9 % (37.0-47.0); Hemoglobin 10.9 g/dl (12.0-16.0); Imm Gran Abs Auto 0.02 X10*3/uL (0.00-0.03); Imm Gran Pct Auto 0.3 % (0.0-0.4); Lymphocytes Absolute Auto 1.3 X10*3/uL (1.2-4.9); Lymphocytes Percent Auto 20.6 % (20-40); Mean Corpuscular HGB Conc 32.2 g/dl (31.0-35.0); Mean Corpuscular Hemoglobin 27.6 pg (27.0-33.0); Mean Corpuscular Volume 85.8 fL (80.0-98.0); Mean Platelet Volume 9.3 fL (9.4-12.3); Monocytes Absolute Auto 0.5 X10*3/uL (0.1-1.2); Monocytes Percent Auto 7.1 % (2-11); Neutrophils Absolute Auto 4.1 x10*3/uL (2.0-8.3); Neutrophils Percent Auto 65.4 % (45-73); Platelet Count 255 X10*3/uL (160-400); Red Blood Count 3.95 X10*6/uL (4.20-5.50); Red Cell Distribution Width 12.4 % (11.0-16.0); White Blood Count 6.3 X10*3/uL (4.8-10.8)
[2024-07-15 10:34] LABS: B Type Natriuretic Peptide 87 pg/mL (<100)
== END 2024-07-15 09:20 | disposition home or self-care (01) ==
LOC: HO.LAB 09:19
PROVIDERS: PCP General Practice; Visit Provider Internal Medicine
DX: R06.09 Other forms of dyspnea (principal)
CPT/HCPCS: 36415; 83880; 85025

== ENCOUNTER 2024-07-28 10:38 | Outpatient (REF) | payer OTHER, SELFPAY ==
--- NOTE | ~2024-07-28 | XR_ITS ---
EXAMINATION: XR CHEST 2 VIEWS CLINICAL INFORMATION: Dyspnea on exertion. COMPARISON: XR Right shoulder 03/10/2024 TECHNIQUE: 2 views of the chest were obtained. FINDINGS: No significant abnormality is noted involving the heart, lungs, mediastinum, bony thorax or soft tissues. Stable postsurgical changes consistent with aortic valve replacement. IMPRESSION: No acute process Electronically signed by: Marcellus Robles MD 10/01/2024 08:51 AM [facility]
[2024-07-28 12:55] LABS: Anion Gap 11 (12-20); Blood Urea Nitrogen 17 mg/dL (9-16); Calcium 9.4 mg/dL (8.4-10.2); Carbon Dioxide 35 mmol/L (22-29); Chloride 100 mmol/L (96-108); Estimated Glomerular Filt Rate 56; Glucose Random 111 mg/dL (60-115); Potassium 3.9 mmol/L (3.3-5.1); Sodium 142 mmol/L (135-145)
== END 2024-07-28 10:39 | disposition home or self-care (01) ==
LOC: HO.XRAY 10:38
PROVIDERS: PCP General Practice; Visit Provider Internal Medicine
DX: R06.09 Other forms of dyspnea (principal); I50.9 Heart failure, unspecified
CPT/HCPCS: 36415; 71046; 80048

== ENCOUNTER 2024-08-21 14:54 | Outpatient (REF) | payer OTHER, SELFPAY | END 2024-08-21 14:55 | disposition home or self-care (01) | LOC: HO.HHCL 14:54 | PROVIDERS: Visit Provider General Practice | DX: E11.22 Type 2 diabetes mellitus with diabetic chronic kidney disease (principal) | CPT/HCPCS: 36415 ==

== ENCOUNTER 2024-12-21 14:52 | Outpatient (REF) | payer OTHER, SELFPAY ==
[2024-12-21 16:25] LABS: MANUAL DIFF FLAG NO
[2024-12-21 16:29] LABS: Basophils Percent Auto 0.3 % (0-2); Eosinophils Absolute Auto 0.3 X10*3/uL (0.0-0.4); Eosinophils Percent Auto 4.1 % (0-4); Hemoglobin 11.3 g/dl (12.0-16.0); Imm Gran Abs Auto 0.03 X10*3/uL (0.00-0.03); Imm Gran Pct Auto 0.4 % (0.0-0.4); Lymphocytes Absolute Auto 1.3 X10*3/uL (1.2-4.9); Lymphocytes Percent Auto 17.4 % (20-40); Mean Corpuscular HGB Conc 32.3 g/dl (31.0-35.0); Mean Corpuscular Hemoglobin 28.2 pg (27.0-33.0); Mean Corpuscular Volume 87.3 fL (80.0-98.0); Mean Platelet Volume 9.7 fL (9.4-12.3); Monocytes Absolute Auto 0.5 X10*3/uL (0.1-1.2); Monocytes Percent Auto 6.1 % (2-11); Neutrophils Absolute Auto 5.4 x10*3/uL (2.0-8.3); Neutrophils Percent Auto 71.7 % (45-73); Platelet Count 294 X10*3/uL (160-400); Red Blood Count 4.01 X10*6/uL (4.20-5.50); Red Cell Distribution Width 12.4 % (11.0-16.0); White Blood Count 7.5 X10*3/uL (4.8-10.8)
[2024-12-21 16:48] LABS: Alanine Aminotransferase 10 U/L (0-31); Alkaline Phosphatase 99 U/L (39-117); Anion Gap 11 (12-20); Aspartate Amino Transferase 21 U/L (5-31); Bilirubin Total 0.4 mg/dL (0.0-1.0); Blood Urea Nitrogen 16 mg/dL (9-16); Calcium 9.1 mg/dL (8.4-10.2); Carbon Dioxide 32 mmol/L (22-29); Chloride 101 mmol/L (96-108); Cholesterol 187 mg/dL (<200); Estimated Glomerular Filt Rate 59; Glucose Random 102 mg/dL (60-115); HDL Cholesterol 39 mg/dL (>40); LDL Cholesterol Calculated 116 mg/dL (<100); Potassium 3.9 mmol/L (3.3-5.1); Sodium 140 mmol/L (135-145); Total Protein 7.4 g/dL (6.5-8.0); Triglycerides 163 mg/dL (<150)
--- OUTSIDE RECORDS SUMMARY | 2024-12-21 17:44 | XMS_ITS ---
Author Organization [facility] Address [address] [place] [address] Care Team Providers Care Crab Catcher Name Role Phone Ivette Mahoney Primary Care Provider Facundo Hart Unavailable [phone] Allergies Allergen (clinical drug ingredient) Drug/Non Drug Allergy documented on EMR Reaction Allergy Type Onset Date Status aspirin Aspirin Unknown Drug Allergy Active heparin Heparin Unknown Drug Allergy Active oxycodone Oxycodone Unknown Drug Allergy Active Penicillin Unknown Drug Allergy Active REASON FOR VISIT At Risk Footcare, Painful Nail(s) aggrevated by shoes and causing difficulty standing/walking, Ingrown nail(s), Toe Irritation Medications Medication SIG (Take, Route, Frequency, Duration) Notes Start Date End Date Status Gabapentin 100 MG 1 capsule Orally Onc e a day Active Lantus Active DULoxetine HCl 30 MG 1 capsule Orally On ce a day Active Ferrous Gluconate 324 (38 Fe) MG 1 tablet Orally Three times a Week Active Metoprolol Tartrate 50 MG 1 tablet with food Orally Twice a day Active Extra Depth Orthopedic Shoes, (1) Pair With (3) Pair Custom Heat Molded Multidensity Innersoles Dx: NIDDM/PVD(E11.51), Hammertoe Foot Deformity(M20.41,M20.42), Preulcerative Skin Lesion(s)(L85.1) Wear Daily for 365 days 09/26/2023 Active Docusate Sodium 100 MG 1 capsule as need ed Orally Once a day Active Trulicity Active traZODone HCl 50 MG 1 tablet at bedtime as needed Orally Once a day Active Torsemide 20 MG as directed Orally Active NovoLOG Active Social History Tobacco Use: Social History Observation Description Date Details (start date - stop date) Never Smoker NA - NA Tobacco Use/Smoking Question Answer Notes Are you a: nonsmoker Additional Findings: Tobacco Non-User Current no n-smoker Alcohol Screen Question Answer Notes Did you have a drink containing alcohol in the p ast year? No Points 0 Interpretation Negative Tobacco use other than smoking: Question Answer Notes Are you an other tobacco user? No Vital Signs Height 5ft 4in in 06/10/2024 Weight 174 lbs 06/10/2024 BMI 29.86 kg/m2 06/10/2024 Procedures Procedure Date Ordered Date Performed Result Body Sit e 75072-YRRGPLM NAIL, 6 OR MORE 06/10/2024 N/A 24702-Tqjvepfz Plate 06/10/2024 N/A 09236-Pskuxxee Plate Each Additional 06/10/2024 N/A 79971-RURH SKIN LESIONS, 2 TO 4 06/10/2024 N/A Encounters Encounter Location Date Provider Diagnosis [facility] [place] [address] [place] [id number] 06/10/2024 Facundo Mccabe Type 2 diabetes mellitus with diabetic peripheral angiopathy without gangrene E11.51 ; Tinea unguium B35.1 ; Pain in right toe(s) M79.674 ; Pain in left toe(s) M79.675 ; Ingrown nail L60.0 ; Other hammer toe(s) (acquired), right foot M20.41 and Other hammer toe(s) (acquired), left foot M20.42 Assessments Encounter Date Diagnosis (ICD Code) Assessment Notes Treatment Notes Treatment Clinical Notes Section Notes 06/10/2024 Type 2 diabetes mellitus with diabetic peripheral angiopathy without gangrene (ICD-10 - E11.51) 06/10/2024 Tinea unguium (ICD-10 - B35.1) 06/10/2024 Pain in right toe(s) (ICD-10 - M79.674) 06/10/2024 Pain in left toe(s) (ICD-10 - M79.675) 06/10/2024 Ingrown nail (ICD-10 - L60.0) 06/10/2024 Other hammer toe(s) (acquired), right foot (ICD-10 - M20.41) Response to treatment,Impro vement 06/10/2024 Other hammer toe(s) (acquired), left foot (ICD-10 - M20.42) Response to treatment,Impro vement 06/10/2024 Other Plan Of Treatment Pending Test Test Name Order Date 29033-EBQYJYB NAIL, 6 OR MORE 06/10/2024 96255-Rwabfabo Plate 06/10/2024 30149-Pjmbldor Plate Each Additional 20549-VCGT SKIN LESIONS, 2 TO 4 06/10/20 24 Next Appt Details Follow Up: 2 Months, Reason: Provider Name:Facundo Mccabe , 02/24/2025 03:00:00 PM, [address] [facility], [address], [place], [address], Procedure Notes * Category Sub-Category Detail Notes Nail Avulsion Procedure A fine sterile e levator was placed between the eponychium, nail fold, and nail plate to separate the the structures. A sterile nail splitter, and/or sterile 316 blade, was then used to longitudinally section the nail along its entire length through the eponychium to the area under the nail fold. The offending portion of each nail was from the nail bed with a rolling action and then removed with a hemostat. No underlying bone was identified. There was minimal bleeding as hemostasis was achieved through use of either a digital tournaquet or the aforementioned local with epinephrine. A bacitracin sterile dressing was applied. Local wound aftercare instructions were discussed and dispensed. The patient was informed of both conservative and future surgical procedures to prevent recurrence (16812/32) , DIABETES: Pt was advised as to the risk of delayed or nonhealing due to diabetes. Pt is to call the office with any questions, concerns, or complications Anesthesia was accomplished TOP ICALLY with Lidocaine Hydrochloride Jelly 2 percent , to each toe Location Lateral nail border , TA , T5 Debride Nail 6-10 Nail debridement Performance o f this nail treatment by a nonprofessional would put this patients foot and overall health at risk. Therefore, nail debridement was performed extensively to reduce/remove overall nail length, girth, thickness, subungual debris, and necrotic tissue, by manual and/or electrical means through the use of a nail nipper and/or dremel-type cutter grinder, to a more viable healthy nail plate or bed tissue 6-10. Silver nitrate used for any petechial bleeding as necessary. Definitive antifungal treatment options have been reviewed and discussed with the patient. The patient chooses, no pharmaceutical tx (82301) Keratoma Treatment Parring or Cutting o f Benign Hyperkeratotic Lesion(s) 22866 ( 2-4 Lesions ) - The Benign hyperkeratotic lesions, as described above were pared, and/or cut utilizing a sterile 15 blade, tissue nippers, and/or dremel , Q8 Progress Notes * Claudy CHOUDHARY:05/1945 (79 yo F)Acc No.[id number]:06/10/2024 Progress Note Patient:?Katherine CHOUDHARY Provider:?Facundo Mccabe DPM :1945???Age:78 Y???Sex:Female D ate:06/10/2024 Address:[address] [place], [place] [id number] Pcp:Ivette Mahoney Subjective: * Chief Complaints: * ???At Risk FootcarePainful N ail(s) aggrevated by shoes and causing difficulty standing/walkingIngrown nail(s)Toe Irritation * HPI: ???At Risk footcare:?Pt States Last PCP Visit:?Date?03/10/2024 ???Toe pain:?Treatments:?Rx shoes .? * ROS:?General/Constitutional:?Nausea?denies.?Vomiting?denies.?Hunger Thirst?denies.?Loss appetite?denies.?Chills?denies.?Fatigue?denies.?Fever?denies.?Night Sweats?denies.?Unexplained weight loss?denies.?Unexplained weight gain?denies.?HEENTM:?Dentures?denies.?Dizziness?admits.?Glasses/contacts?denies.?Retinopathy?den ies.?Blurred/double vision?denies.?TMJ?denies.?Discharge/drainage?denies.?Implants?denies.?Sore throat?denies.?Dental implants?denies.?Hard of hearing ?denies.?Difficulty chewing/swallowing/speaking?denies.?Nose bleeds?denies.?Sore mouth?denies.?Respiratory:?On O xygen?denies.?Pneumonia/pleurisy?denies.?Bronchitis?denies.?Emphysema?denies.?Co ughing?denies.?Cough blood?denies.?Shortness of breath?denies.?Wheezing?denies.?Cardiovascular:?Pacemaker?denies.?MVP?denies.?WPW?denies.?CHF?denies.?Heart attack?denies.?Septal defect?denies.?Rapid beat?denies.?Chest pain ?denies.?Atrial Fib.?denies.?Murmur/Palpitations?denies.?Gastrointestinal:?Hemorrhoids?denies.?Stomach/Abdominal pain?denies.?Dark blood stool?denies.?Irritable bowel ?denies.?Constipation?denies.?Diarrhea?denies.?Hematology:?Swelling?admits.?Clots?denies.?Varicose Veins?admits.?Bruising?denies.?Bleeding problem?denies.?Genitourinary:?Blood urine?denies.?Frequent/Painfu/urination/bladder control?denies.?Kidney stones?denies.?Infection (UTI)?denies.?Nephropathy?denies.?sex trans dis (STD)?denies.?Prostate?denies.?Musculoskeletal:?Hammertoes?admits.?Bunions?denies.?Back Pain?denies.?Muscle Cramps/ Resting?denies.?Muscle cramps / walking?denies.?Generalized aches and pains?denies.?Weakness?denies.?Integ.:?Yang?denies.?Scars?denies.?Corns/calluses?admits.?Ingrown nails?admits.?Painful nails?admits.?Open Sores?denies.?Rashes?denies.?Neurologic:?Difficulty sleeping?denies.?Brain disorder?denies.?Numbness?denies.?Balance t rouble?denies.?Confusion?denies.?Fainting/blackouts?denies.?Tingling?denies.?Brady mors?denies.? * Medical History:? * Surgical History:?Valve repl acement 2021 * Hospitalization/Major Diagno stic Procedure:?No Hospitalization History. * Family History:?Mother: dece ased, diagnosed with Unspecified heart disease.?Father: .?Spouse: .?Siblings: diagnosed with Diabetic - NIDDM.? * Social History:?Tobacco Use:?Tobacco Use/Smoking?Are you a:?nonsmoker ?Additional Findings: Tobacco Non-User?Current non-smoker ?Tobacco use other than smoking?Are you an other tobacco user??No ???Drugs/Alcohol:?Drugs?Have you used drugs other than those for medical reasons in the past 12 months??No ?Alcohol Screen?Did you have a drink containing alcohol in the past year??No ?Points?0 ?Interpretation?Negative ???Miscellaneous:?Caffeine: yes, 1-2 cups per day. ?Children: yes. ?Exercise: no. ?Marital status: . ?Occupation: Retired. * Medications:?TakingDocusate Sodium 100 MG Capsule 1 capsule as needed Orally Once a day DULoxetine HCl 30 MG Capsule Delayed Release Particles 1 capsule Orally Once a day Ferrous Gluconate 324 (38 Fe) MG Tablet 1 tablet Orally Three times a Week Gabapentin 100 MG Capsule 1 capsule Orally Once a day Lantus Metoprolol Tartrate 50 MG Tablet 1 tablet with food Orally Twice a day NovoLOG traZODone HCl 50 MG Tablet 1 tablet at bedtime as needed Orally Once a day Torsemide 20 MG Tablet as directed Orally Trulicity Extra Depth Orthopedic Shoes, (1) Pair With (3) Pair Custom Heat Molded Multidensity Innersoles . Dx: NIDDM/PVD(E11.51), Hammertoe Foot Deformity(M20.41,M20.42), Preulcerative Skin Lesion(s)(L85.1) Wear Daily Medication List reviewed and reconciled with the patientTaking Docusate Sodium 100 MG Capsule 1 capsule as needed Orally Once a day Taking DULoxetine HCl 30 MG Capsule Delayed Release Particles 1 capsule Orally Once a day Taking Ferrous Gluconate 324 (38 Fe) MG Tablet 1 tablet Orally Three times a Week Taking Gabapentin 100 MG Capsule 1 capsule Orally Once a day Taking Lantus Taking Metoprolol Tartrate 50 MG Tablet 1 tablet with food Orally Twice a day Taking NovoLOG Taking traZODone HCl 50 MG Tablet 1 tablet at bedtime as needed Orally Once a day Taking Torsemide 20 MG Tablet as directed Orally Taking Trulicity Taking Extra Depth Orthopedic Shoes, (1) Pair With (3) Pair Custom Heat Molded Multidensity Innersoles . Dx: NIDDM/PVD(E11.51), Hammertoe Foot Deformity(M20.41,M20.42), Preulcerative Skin Lesion(s)(L85.1) Wear Daily Medication List reviewed and reconciled with the patient * Allergies:?PenicillinAspirin HeparinOxycodoneyes[Allergies Verified] Objective: * Vitals:?Ht: 5ft 4in, Wt:174, BMI: 29.86, Shoe size:8, BS:159, Wt-k.93 kg. * ???Past Orders: ???Lab:HEMOGLOBIN A1C (GLYCO HEMOGLOBIN) (Order Date - 09/26/2023) (Collection Date & Time - 09/26/2023 01:09 PM) ? Value Reference Range ?HEMOGLOBIN A1C % (HH) 10 * Examination: ???Ophthalmology Referral: ?DIABETES EYE EXAM?Procedure Performed:?Yes ?Date of Exam Performed?09/04/2023 ?Diabetic Retinopathy Screening:?Yes ?Findings of Diabetic Eye Exam:?no retinopathy?Vascular: ?DP PULSES (B):? 0/4, B/L.?PT PULSES (B):? 0/4, B/L.?CAPILLARY FILL TIME:? delayed, all digits, B/L.?TROPHIC CONDITION-TEXTURE/ELASTICITY/TURGOR/HAIR GROWTH (B):? decreased, B/L.?TEMPERTURE GRADIENT (C):? decreased, cool to cool, proximal to distal, B/L.?PIGMENTATION:?mottled, B/L.?EDEMA (C):?2/4 , non-pitting , without aching pain , Leg(s) , Ankle(s) , Foot , B/L.?CLAUDICATION (C):?denies, B/L.?REST PAIN:?denies, B/L.?Nails: ?NAILS are:?Elongated, overgrown, dystrophic, lytic, greater than 3mm thick, discolored and friable with crumbly malodorous subungual debris, with pain on palpation , 1-5 B/L.?Dermatologic: ?SKIN FINDINGS:?Skin exam reveals Keratotic lesion(s) located at , Heel(s) , B/L.?Ingrown Nail: ?INSPECTION:?Reveals nail incurvation, pain on palpation, groove hypertrophy , Lateral nail border , TA , T5.?Orthopedic: ?DIGITAL DEFORMITIES:?Digital contracture, PIPJ, 2-5 B/L, incompl-reducible to push-up test, no over, nor underlapping, no longer, with evidence of shoe producing skin irritation.?FOOTWEAR:?good condition, exhibit proper fit and accommodation for pedal deformities. OT were inspected and noted to be worn, but in good condition giving proper support at the present time.?General Examination: ?Footwear Evaluation?Footwear Evaluation performed:?Yes??? Assessment: * Assessment: 1.?Type 2 diabetes mellitus with diabetic peripheral angiopathy without gangrene - E11.51???2.?Tinea unguium - B35.1???3.?Pain in right toe(s) - M79.674???4.?Pain in left toe(s) - M79.675???5.?Ingrown nail - L60.0???Specify :Lateral nail border , TA , T5???6.?Other hammer toe(s) (acquired), right foot - M20.41???Specify :Chronic problem, Stable (1=3,2=4)???Notes :Response to treatment,Improvement???7.?Other hammer toe(s) (acquired), left foot - M20.42???Specify :Chronic problem, Stable (1=3,2=4)???Notes :Response to treatment,Improvement??? Plan: * Treatment: 2.?Tinea unguium?Procedure: 13475-AEAAFHO NAIL, 6 OR MORE 3.?Ingrown nail?Procedure: 51063-Fsrqofya Plate ?Procedure: 05168-Dnnzhpyo Plate Each Additional * Procedures:?Debride Nail 6-10:?Nail debridement?Performance of this nail treatment by a nonprofessional would put this patients foot and overall health at risk. Therefore, nail debridement was performed extensively to reduce/remove overall nail length, girth, thickness, subungual debris, and necrotic tissue, by manual and/or electrical means through the use of a nail nipper and/or dremel-type cutter grinder, to a more viable healthy nail plate or bed tissue 6-10. Silver nitrate used for any petechial bleeding as necessary. Definitive antifungal treatment options have been reviewed and discussed with the patient. The patient chooses, no pharmaceutical tx (69353).?Keratoma Treatment:?Parring or Cutting of Benign Hyperkeratotic Lesion(s)?86062 ( 2-4 Lesions ) - The Benign hyperkeratotic lesions, as described above were pared, and/or cut utilizing a sterile 15 blade, tissue nippers, and/or dremel , Q8.?Nail Avulsion:?Location?Lateral nail border?,?TA?,?T5.?Anesthesia?was accomplished TOPICALLY with Lidocaine Hydrochloride Jelly 2 percent , to each toe.?Procedure?A fine sterile elevator was placed between the eponychium, nail fold, and nail plate to separate the the structures. A sterile nail splitter, and/or sterile 316 blade, was then used to longitudinally section the nail along its entire length through the eponychium to the area under the nail fold. The offending portion of each nail was from the nail bed with a rolling action and then removed with a hemostat. No underlying bone was identified. There was minimal bleeding as hemostasis was achieved through use of either a digital tournaquet or the aforementioned local with epinephrine. A bacitracin sterile dressing was applied. Local wound aftercare instructions were discussed and dispensed. The patient was informed of both conservative and future surgical procedures to prevent recurrence (23926/32) , DIABETES: Pt was advised as to the risk of delayed or nonhealing due to diabetes. Pt is to call the office with any questions, concerns, or complications.? * Procedure Codes:?19461 DEBRI DE NAIL, 6 OR MORE, Modifiers: XS 14895 Avulsion Plate, Modifiers: XS , [id number] Avulsion Plate Each Additional, Modifiers: XS , [id number] TRIM SKIN LESIONS, 2 TO 4, Modifiers: XS , Q8 * Preventive Medicine:? ??Counseling:?Discussion:?-13: Office or other outpatient visit for the evaluation and management of an established patient, which required a medically appropriate history and/or examination and LOW level of DECISION MAKING for: 1 STABLE ACUTE UNCOMPLICATED PROBLEM, 2 OR MORE MINOR PROBLEMS, OR 1 STABLE CHRONIC PROBLEM, THAT POSE(S) A LOW RISK FOR MORBIDITY/MORTALITY. The visit on the day of the encounter encompassed interpreting the data and educating the patient as to the nature of their condition, treatment options available according to their individual PMH, meds, allergies, and overall health/living conditions, as well as any potential risks or complications that may occur from a failure to adhere to, and participate in, the recommended course of therapy. The discussion included a complete verbal, and/or written explanation of the examination results, any x-rays taken, the proposed diagnosis, and outline of the treatment plan. A schedule for future care needs was also explained. The patient verbalized an understanding of the instructions at this time and agreed to be an active participant in their treatment. If the patient should think of any questions or concerns after the visit, I have encouraged the patient to call the office.?Shoe Gear Counseling:?A thorough inspection of the patients Rxed shoegear and inserts was performed and findings communicated. We reviewed the many important medical advantages for adhering to regularly wearing these shoe and insert accomidative devices daily as well as reviewed the fact that a failure in accepting these recommedations may be deleterious, unable to prevent, and disadvantagely result in, many pedal complications such as skin irritation, skin ulceration, infection, and even loss of toe/foot/leg/or even their life. Time was also spent reviewing the proper footcare techniques including daily skin moisturization, daily foot inspection for any interruption in skin integrity, open lesions, or sign of infection such as redness/malodor/drainage/swelling as well as daily shoe inspection for the presence of internal foreign bodies and shoe as well as insert wear. Patient questions re: shoes, inserts, and self foot inspections were answered to their satisfaction as the patient verbally confirmed a full understanding of the above information.? ??Screening/Special Tests:?Fall Risk?Screening:?No falls in the past year ?FALLS: Screening for Future Fall Risk?Have you had any falls with injury in the past year??No * Follow Up:?2 Months * Images: * Sign off status: Completed true * Provider:?Facundo Mccabe DPM Date:?2023 Generated for John jimenez/Jaqui/Marta on:?12/21/2024 05:44 PM EST History and Physical Notes * HPI (History of Present Illness) Category Sub-Category Detail Notes Category Not es Toe pain Treatments: Rx shoes At Risk footcare Pt States Last PCP Visit: Date: 4 Examination Category Sub-Category Detail Notes Category Not es Ingrown Nail INSPECTION: Reveals nail inc urvation, pain on palpation, groove hypertrophy , Lateral nail border , TA , T5 Dermatologic SKIN FINDINGS: Skin exam reveal s Keratotic lesion(s) located at , Heel(s) , B/L Orthopedic FOOTWEAR: good condition, exhibit proper fit and accommodation for pedal deformities. OT were inspected and noted to be worn, but in good condition giving proper support at the present time DIGITAL DEFORMITIES: Digital contracture , PIPJ, 2-5 B/L, incompl-reducible to push-up test, no over, nor underlapping, no longer, with evidence of shoe producing skin irritation General Examination Footwear Evaluation Footwear Evaluatio n performed:: Yes Ophthalmology Referral DIABETES EYE EXAM Procedure Perform ed:: Yes ?Date of Exam Performed: 09/04/2023 Diabetic Retinopathy Screening:: Yes Findings of Diabetic Eye Exam:: no retin opathy Vascular DP PULSES (B): 0/4, B/L PT PULSES (B): 0/4, B/L CAPILLARY FILL TIME: delayed, all digits , B/L TEMPERTURE GRADIENT (C): decreased, cool to cool, proximal to distal, B/L TROPHIC CONDITION-TEXTURE/ELASTICITY/TURGOR/HAIR GROWTH (B): decreased, B/L EDEMA (C): 2/4 , non-pitting , without aching pain , Leg(s) , Ankle(s) , Foot , B/L CLAUDICATION (C): denies, B/L REST PAIN: denies, B/L PIGMENTATION: mottled, B/L Nails NAILS are: Elongated, overg rown, dystrophic, lytic, greater than 3mm thick, discolored and friable with crumbly malodorous subungual debris, with pain on palpation , 1-5 B/L
--- OUTSIDE RECORDS SUMMARY | 2024-12-21 17:44 | XMS_ITS | Encounter Summary ---
Author Organization [employer] Address [address] [place] [address] Care Team Providers Care Tip Stretcher Name Role Phone Josephine Romo MD Primary Care Provider [phone] Encounter Details Date Type Department Care Team ([facility] st Contact Info) Description 06/17/2024 Orders Only [facility] [address] [place], [place] [id number] Josephine Romo MD [address] [place] [address] Indication present for endocarditis prophylaxis (Primary Dx) Social History Tobacco Use Types Packs/Day Years Used Date Smoking Tobacco: Never Smokeless Tobacco: Never Alcohol Use Standard Drinks/Week Comments Never 0 (1 standard drink = 0.6 oz pur e alcohol) Depression Answer Date Recorded Patient Health Questionnaire-9 Score 2 04/10/2023 Housing Stability Answer Date Recorded What is your housing situation today? I have shikha elkins 08/22/[address] you li ve. Do you have problems with any of the following? None of the above 08/22/2023 Food Insecurity Answer Date Recorded Within the past 12 months, y ou worried that your food would run out before you got money to buy more: Never True 08/22/2023 Within the past 12 months,th e food you bought just didn't last and you didn't have enough money to get more: Never True 11/2022 Transportation Answer Date Recorded In the past 12 months, has l ack of transportation kept you from medical appts, meetings, work or from getting things needed for daily living? No 08/22/2023 Utilities Answer Date Recorded In the past 12 months, has t he electric, gas, oil or water company threatened to shut off services in your home? No 08/22/2023 Depression Answer Date Recorded Patient Health Questionnaire-2 Score 0 04/10/2023 Comments Unknown Sex and Gender Information Value Date Recorded Sex Assigned at Female 08/20/2022 10:39 AM EDT Legal Sex Female 10:39 AM EDT Gender Identity Female 08/20/2022 10:39 AM EDT Sexual Orientation Straight 08/20/2022 10 :39 AM EDT documented as of this encounter Plan of Treatment Not on file documented as of this encounter Goals Goal Patient Goal Type Associated Problems Recent Progress Patient-Stated? Author Blood Pressure < 140/90 Blood Pressure 119/66(2024 2:06 PM EST) No Piers-Gambl e, Leeann, PharmD Hemoglobin A1c < 8 Result Component 8.3( 2:12 PM EST) No Piers-Gambl e, Leeann, PharmD documented as of this encounter Visit Diagnoses Diagnosis Indication present for endocarditis prophylaxis- Primary documented in this encounter Additional Health Concerns Assessment Noted Time PHQ-9 Depression Total Score: 2 04/10/20 23 2:06 PM EDT documented as of this encounter Care Teams Tip Stretcher Relationship Specialty Start Date End Date Josephine Romo MD [address] [place] [address] PCP - General Family Medicine 06/12/22 [facility] 03/06/23 documented as of this encounter
--- OUTSIDE RECORDS SUMMARY | 2024-12-21 17:44 | XMS_ITS | Encounter Summary ---
Author Organization [employer] Address [address] [facility] [address] [address] 7t [place] [address] Care Team Providers Care Substation Operator Helper Generation Name Role Phone Josephine Romo MD Primary Care Provider [phone] Reason for Visit * Reason Comments Med Refill Encounter Details Date Type Department Care Team ([facility] st Contact Info) Description 05/06/2024 Refill [facility] MEDICINE 230 [place], [place] [phone] Josephine Romo MD 230 [place], [place] [phone] Social History Tobacco Use Types Packs/Day Years Used Date Smoking Tobacco: Never Smokeless Tobacco: Never Alcohol Use Standard Drinks/Week Comments Never 0 (1 standard drink = 0.6 oz pur e alcohol) Depression Answer Date Recorded Patient Health Questionnaire-9 Score 2 04/10/2023 Housing Stability Answer Date Recorded What is your housing situation today? I have shikha eklins 08/22/[address] you li [...] Pressure 119/66(2024 2:06 PM EST) No Piers-Gambl eJudithsa, PharmD Hemoglobin A1c < 8 Result Component 8.3( 2:12 PM EST) No Piers-Gambl e, Leeann, PharmD documented as of this encounter Visit Diagnoses Not on filedocumented in this encounter Additional Health Concerns Assessment Noted Time PHQ-9 Depression Total Score: 2 04/10/20 23 2:06 PM EDT documented as of this encounter Care Teams Substation Operator Helper Generation Relationship Specialty Start Date End Date Josephine Romo MD [address] [place] [address] PCP - General Family Medicine 06/12/22 [employer] 03/06/23 documented as of this encounter
--- OUTSIDE RECORDS SUMMARY | 2024-12-21 17:44 | XMS_ITS | Encounter Summary ---
Author Organization [employer] Address [address] [facility] [address] 7[address] [place] [address] Care Team Providers Care Gag Writer Name Role Phone Josephine Romo MD Primary Care Provider [phone] Encounter Details Date Type Department Care Team ([facility] st Contact Info) Description 12/20/2023 Orders Only [facility] MEDICINE 230 [place], [place] [phone] Josephine Romo MD 230 [place] [address] Social History Tobacco Use Types Packs/Day Years Used Date Smoking Tobacco: Never Smokeless Tobacco: Never Alcohol Use Standard Drinks/Week Comments Never 0 (1 standard drink = 0.6 oz pur e alcohol) Depression Answer Date Recorded Patient Health Questionnaire-9 Score 2 04/10/2023 Housing Stability Answer Date Recorded What is your housing situation today? I have shikhatrevor elkins 08/22/[address] you [...] the past 12 months, has t he [employer], gas, oil or water [employer] threatened to shut off services in your [...] documented as of this encounter Care Teams Gag Writer Relationship Specialty Start Date End Date Josephine Romo MD 230 [place] [address] PCP - General Family Medicine 06/12/22 [employer] 03/06/23 documented as of this encounter
--- OUTSIDE RECORDS SUMMARY | 2024-12-21 17:44 | XMS_ITS | Encounter Summary ---
Author Organization [employer] Address [address] [facility] [address] 7t [place] [address] Care Team Providers Care Table Machine Operator Name Role Phone Josephine Romo MD Primary Care Provider [phone] Encounter Details Date Type Department Care Team ([facility] st Contact Info) Description 03/03/2024 Orders Only [facility] MEDICINE 230 [place], [place] [phone] Josephine Romo MD 230 [place] [address] Social History Tobacco Use Types Packs/Day Years [...] the past 12 months, has t he [employer], gas, oil or water [employer] threatened to shut off services in your [...] documented as of this encounter Care Teams Table Machine Operator Relationship Specialty Start Date End Date Josephine Romo MD 230 [place] [address] PCP - General Family Medicine 06/12/22 [employer] 03/06/23 documented as of this encounter
--- OUTSIDE RECORDS SUMMARY | 2024-12-21 17:44 | XMS_ITS | Encounter Summary ---
Author Organization [employer] Address [address] [facility] [address] 7t [place] [address] Care Team Providers Care Information Consultant Name Role Phone Josephine Romo MD Primary Care Provider [phone] Reason for Visit * Reason Comments Med Refill Encounter Details Date Type Department Care Team ([facility] st Contact Info) Description 03/03/2024 Refill [facility] MEDICINE 230 [place], [place] [phone] Josephine Romo MD 230 [place] [address] Social History Tobacco Use Types Packs/Day Years [...] documented as of this encounter Care Teams Information Consultant Relationship Specialty Start Date End Date Josephine Romo MD [address] [place] [address] PCP - General Family Medicine 06/12/22 [employer] 03/06/23 documented as of this encounter
--- OUTSIDE RECORDS SUMMARY | 2024-12-21 17:45 | XMS_ITS | Encounter Summary ---
Author Organization [employer] Address [address] [facility] [address] 7[address] [place] [address] Care Team Providers Care Project Estimator Name Role Phone Josephine Romo MD Primary Care Provider [phone] Reason for Visit * Reason Comments Med Refill Encounter Details Date Type Department Care Team ([facility] st Contact Info) Description 04/10/2024 Refill [facility] MEDICINE 230 [place], [place] [phone] Josephine Romo MD 230 [place], [place] [phone] Social History Tobacco Use Types Packs/Day Years Used Date Smoking Tobacco: Never Smokeless Tobacco: Never Alcohol Use Standard Drinks/Week Comments Never 0 (1 standard drink = 0.6 oz pur e alcohol) Depression Answer Date Recorded Patient Health Questionnaire-9 Score 2 04/10/2023 Housing Stability Answer Date Recorded What is your housing situation today? I have shikha elkisn 08/22/[address] you li [...] documented as of this encounter Care Teams Project Estimator Relationship Specialty Start Date End Date Josephine Romo MD [address] [place] [id number] PCP - General Family Medicine 06/12/22 [employer] 03/06/23 documented as of this encounter
--- OUTSIDE RECORDS SUMMARY | 2024-12-21 17:45 | XMS_ITS | Encounter Summary ---
Author Organization [employer] Address [address] [facility] [address] 7[address] [place] [address] Care Team Providers Care Computer Aided Design Technician Name Role Phone Josephine Romo MD Primary Care Provider Reason for Visit * Reason Comments Med Refill Encounter Details Date Type Department Care Team ([facility] st Contact Info) Description 03/26/2024 Refill [facility] 230 [place], [place] [phone] Demi Alberts FNP Social History Tobacco Use Types Packs/Day Years [...] documented as of this encounter Care Teams Computer Aided Design Technician Relationship Specialty Start Date End Date Josephine Romo MD 230 [place] [address] PCP - General Family Medicine 06/12/22 [employer] 03/06/23 documented as of this encounter
--- OUTSIDE RECORDS SUMMARY | 2024-12-21 17:45 | XMS_ITS | Encounter Summary ---
Author Organization [facility] Address [address] [facility] 7t [place] [address] Care Team Providers Care Pediatrics Hospitalist Name Role Phone Josephine Romo MD Primary Care Provider [phone] Encounter Details Date Type Department Care Team ([facility] st Contact Info) Description 11/28/2022 Orders Only [facility] MEDICINE 230 [place], [place] [phone] Josephine Romo MD 230 [place] [address] Social History Tobacco Use Types Packs/Day Years Used Date Smoking Tobacco: Never Smokeless Tobacco: Never Comments Unknown Sex and Gender Information Value Date Recorded Sex Assigned at Female 08/20/2022 10:39 AM EDT Legal Sex Female 10:39 AM EDT Gender Identity Female 08/20/2022 10:39 AM EDT Sexual Orientation Straight 08/20/2022 10 :39 AM EDT documented as of this encounter Plan of Treatment Not on file documented as of this encounter Visit Diagnoses Not on filedocumented in this encounter Care Teams Pediatrics Hospitalist Relationship Specialty Start Date End Date Josephine Romo MD 230 [place], [place] [phone] PCP - General Family Medicine 06/12/22 [employer] 03/06/23 documented as of this encounter
--- OUTSIDE RECORDS SUMMARY | 2024-12-21 17:45 | XMS_ITS | Encounter Summary ---
Author Organization [facility] Address [address] [facility] [address] [place] [address] Phone Care Team Providers Care Garment Presser Name Role Phone Bria Hi Primary Care Provider [phone] Reason for Visit * Reason Comments Med Refill Encounter Details Date Type Department Care Team ([facility] st Contact Info) Description 11/25/2024 Refill [facility] [address] [facility] [address] [place] [address] Althea Gillette ARNP [address] [facility] [address] [place] [address] Stage 3a chronic kidney disease (HCC); Hypertension; Bilateral lower leg edema Social History Tobacco Use Types Packs/Day Years Used Date Smoking Tobacco: Never Smokeless Tobacco: Never Alcohol Use Standard Drinks/Week Comments Never 0 (1 standard drink = 0.6 oz pur e alcohol) Comments Unknown Sex and Gender Information Value Date Recorded Sex Assigned at Not on file Legal Sex Female 8:07 AM EDT Gender Identity Not on file Sexual Orientation Not on file documented as of this encounter Plan of Treatment Not on file documented as of this encounter Visit Diagnoses Diagnosis Stage 3a chronic kidney disease (HCC) Hypertension Bilateral lower leg edema documented in this encounter Care Teams Garment Presser Relationship Specialty Start Date End Date Bria Hi PCP - General Family Medicine 06/13/22 documented as of this encounter
--- OUTSIDE RECORDS SUMMARY | 2024-12-21 17:45 | XMS_ITS | Encounter Summary ---
Author Organization [email or web address] Address [address] [facility] [address] 7t [place] [address] Care Team Providers Care Packing Floor Worker Name Role Phone Josephine Romo MD Primary Care Provider [phone] Reason for Visit * Reason Onset Date Comments Results 11/30/2024 Encounter Details Date Type Department Care Team ([facility] Contact Info) Description 11/30/2024 Telephone [facility] MEDICINE 230 [place], [place] [phone] Josephine Romo MD 230 [place], [place] [phone] Results Social History Tobacco Use Types Packs/Day Years [...] AM EDT documented as of this encounter Miscellaneous Notes * Telephone Encounter - Maddison Aquino RN - 12/01/2024 10:50 AM EST RN printed A1c and faxed as requested to [phone], confirmation page received. * Telephone Encounter - Dionte Damon - 11/30/2024 4:36 PM EST Tc from Gladis with [facility] requesting for pt's last A1C to be faxed. If any questions you can contact Gladis at [phone]. documented in this encounter Plan of Treatment Not on [...] documented as of this encounter Care Teams Packing Floor Worker Relationship Specialty Start Date End Date Josephine Romo MD [address] [place] [address] PCP - General Family Medicine 06/12/22 [email or web address] 03/06/23 documented as of this encounter
--- OUTSIDE RECORDS SUMMARY | 2024-12-21 17:45 | XMS_ITS | Patient Health Record ---
Author Organization [facility] Address [address] [place] [address] Care Team Providers Care Home Furnishings Sales Representative Name Role Phone Ivette Mahoney Primary Care Provider Facundo Hart Unavailable [phone] Allergies Allergen (clinical drug ingredient) Drug/Non Drug Allergy documented on EMR Reaction Allergy Type Onset Date Status aspirin Aspirin Unknown Drug Allergy Active heparin Heparin Unknown Drug Allergy Active oxycodone Oxycodone Unknown Drug Allergy Active Penicillin Unknown Drug Allergy Active Results Component Value Reference Range Notes HEMOGLOBIN A1C (GLYCOHEMOGLO BIN) Reviewed date:12/01/2024 12:29:41 PM Interpretation: Performing Lab: Notes/Report: HEMOGLOBIN A1C % (HH) 7.9 Reason For Referral No Information Medications Medication SIG (Take, Route, Frequency, Duration) Notes Start Date End Date Status Lantus Active Gabapentin 100 MG 1 capsule Orally Onc e a day Active Ferrous Gluconate 324 (38 Fe) MG 1 tablet Orally Three times a Week Active Torsemide 20 MG as directed Orally Active traZODone HCl 50 MG 1 tablet at bedtime as needed Orally Once a day Active NovoLOG Active Metoprolol Tartrate 50 MG 1 tablet with food Orally Twice a day Active DULoxetine HCl 30 MG 1 capsule Orally On ce a day Active Docusate Sodium 100 MG 1 capsule as need ed Orally Once a day Active Ammonium Lactate 12 % 1 application Exte rnally to affected areas of dry skin to feet except for between the toes Twice a day for 30 days Active Trulicity Active Social History Tobacco Use: Social History Observation Description Date Details (start date - stop date) Never Smoker NA - NA Alcohol Screen Question Answer Notes Did you have a drink containing alcohol in the p ast year? No Points 0 Interpretation Negative Tobacco use other than smoking: Question Answer Notes Are you an other tobacco user? No Tobacco Control (Standard) Question Answer Notes Tobacco use: Nonsmoker Additional Findings: Tobacco non-user Current no nsmoker Problems Problem Type SNOMED Code ICD Code Onset Dates Problem Status W/U Status Risk Notes Problem Acquired hammer toe of right foot (5462297375816 105) Other hammer toe(s) (acquired), right foot (M20.41) Active confirmed Response to treatment,I mprovement Problem Type 2 diabetes mellitus with peripheral angiopathy (262284917) Type 2 diabetes mellitus with diabetic peripheral angiopathy without gangrene (E11.51) Active confirmed Problem Acquired hammer toe of left foot (1457591326518 103) Other hammer toe(s) (acquired), left foot (M20.42) Active confirmed Response to treatment,I mprovement Vital Signs Blood pressure diastolic 76 mm Hg 11/30/2024 Height 5ft 4in in 11/30/2024 Blood pressure systolic 124 mm Hg 11/30/2024 Weight 174 lbs 11/30/2024 BMI 29.86 kg/m2 11/30/2024 Procedures Procedure Date Ordered Date Performed Result Body Sit e 32957-JODDOKQ NAIL, 6 OR MORE 12/26/2023 N/A 76570-Swcymalf Plate 12/26/2023 N/A 78411-Tjvcdqxy Plate Each Additional 12/26/2023 N/A 19177-ESXW SKIN LESIONS, 2 TO 4 12/26/2023 N/A 02726-UXNAEKN NAIL, 6 OR MORE 06/10/2024 N/A 58027-Johndyhs Plate 06/10/2024 N/A 76198-Diubpnrg Plate Each Additional 06/10/2024 N/A 72716-KLEG SKIN LESIONS, 2 TO 4 06/10/2024 N/A 05339-NQZNTWE NAIL, 6 OR MORE 09/02/2024 N/A 03996-Ybmmhkeg Plate 09/02/2024 N/A 99216-Wirioklx Plate Each Additional 09/02/2024 N/A 18998-BRRK SKIN LESIONS, 2 TO 4 09/02/2024 N/A 87627-QSNITUR NAIL, 6 OR MORE 11/30/2024 N/A 43251-Kjtdmlbp Plate 11/30/2024 N/A 37664-Rrtrcvks Plate Each Additional 11/30/2024 N/A 19353-UMRU SKIN LESIONS, 2 TO 4 11/30/2024 N/A Encounters Encounter Location Date Provider Diagnosis [address] [address] 12/26/2023 Facundo Mccabe Type 2 diabetes mellitus with diabetic peripheral angiopathy without gangrene E11.51 ; Tinea unguium B35.1 ; Pain in right toe(s) M79.674 ; Pain in left toe(s) M79.675 and Ingrown nail L60.[address] [address] 06/10/2024 Facundo Mccabe Type 2 diabetes mellitus with diabetic peripheral angiopathy without gangrene E11.51 ; Tinea unguium B35.1 ; Pain in right toe(s) M79.674 ; Pain in left toe(s) M79.675 ; Ingrown nail L60.0 ; Other hammer toe(s) (acquired), right foot M20.41 and Other hammer toe(s) (acquired), left foot M20.[address] [address] 09/02/2024 Facundo Mccabe Type 2 diabetes mellitus with diabetic peripheral angiopathy without gangrene E11.51 ; Tinea unguium B35.1 ; Pain in right toe(s) M79.674 ; Pain in left toe(s) M79.675 ; Ingrown nail L60.0 and Xerosis of skin L85.[address] [address] 11/30/2024 Facundo Mccabe Type 2 diabetes mellitus with diabetic peripheral angiopathy without gangrene E11.51 ; Tinea unguium B35.1 ; Pain in right toe(s) M79.674 ; Pain in left toe(s) M79.675 ; Ingrown nail L60.0 and Xerosis of skin L85.3 [facility] [address] [address] 04/29/2024 Facundo Mccabe Assessments Encounter Date Diagnosis (ICD Code) Assessment Notes Treatment Notes Treatment Clinical Notes Section Notes 12/26/2023 Type 2 diabetes mellitus with diabetic peripheral angiopathy without gangrene (ICD-10 - E11.51) 12/26/2023 Tinea unguium (ICD-10 - B35.1) 06/10/2024 Type 2 diabetes mellitus with diabetic peripheral angiopathy without gangrene (ICD-10 - E11.51) 06/10/2024 Tinea unguium (ICD-10 - B35.1) 09/02/2024 Type 2 diabetes mellitus with diabetic peripheral angiopathy without gangrene (ICD-10 - E11.51) 09/02/2024 Tinea unguium (ICD-10 - B35.1) 11/30/2024 Type 2 diabetes mellitus with diabetic peripheral angiopathy without gangrene (ICD-10 - E11.51) 11/30/2024 Tinea unguium (ICD-10 - B35.1) 11/30/2024 Pain in right toe(s) (ICD-10 - M79.674) 09/02/2024 Pain in right toe(s) (ICD-10 - M79.674) 06/10/2024 Pain in right toe(s) (ICD-10 - M79.674) 12/26/2023 Pain in right toe(s) (ICD-10 - M79.674) 12/26/2023 Pain in left toe(s) (ICD-10 - M79.675) 06/10/2024 Pain in left toe(s) (ICD-10 - M79.675) 09/02/2024 Pain in left toe(s) (ICD-10 - M79.675) 11/30/2024 Pain in left toe(s) (ICD-10 - M79.675) 11/30/2024 Ingrown nail (ICD-10 - L60.0) 09/02/2024 Ingrown nail (ICD-10 - L60.0) 06/10/2024 Ingrown nail (ICD-10 - L60.0) 12/26/2023 Ingrown nail (ICD-10 - L60.0) 06/10/2024 Other hammer toe(s) (acquired), right foot (ICD-10 - M20.41) Response to treatment,Impro vement 09/02/2024 Xerosis of skin (ICD-10 - L85.3) 11/30/2024 Xerosis of skin (ICD-10 - L85.3) 06/10/2024 Other hammer toe(s) (acquired), left foot (ICD-10 - M20.42) Response to treatment,Impro vement 12/26/2023 Other 06/10/2024 Other 09/02/2024 Other 11/30/2024 Other Plan Of Treatment Pending Test Test Name Order Date 26795-CDKMDCF NAIL, 6 OR MORE 09/26/2023 83441-FXVPPRZ NAIL, 6 OR MORE 12/26/2023 89740-TEDTMSX NAIL, 6 OR MORE 06/10/2024 56867-EVACYCM NAIL, 6 OR MORE 09/02/2024 40961-PEYDZMS NAIL, 6 OR MORE 11/30/2024 62583-Fziytxkc Plate 11/30/2024 01852-Nvurbqly Plate 09/02/2024 67572-Cbjgniqm Plate 06/10/2024 71927-Fcxushfx Plate 12/26/2023 12513-Iwvudtbx Plate Each Additional 04/2024 56598-Vkpoxeyu Plate Each Additional 95287-Rcplzxpx Plate Each Additional 44009-Xeuxkbee Plate Each Additional 07/2025 44434-IBXE SKIN LESIONS, 2 TO 4 11/30/19 25 08660-HGPQ SKIN LESIONS, 2 TO 4 09/02/20 24 90032-NHTZ SKIN LESIONS, 2 TO 4 06/10/20 24 48428-FSOH SKIN LESIONS, 2 TO 4 12/26/19 24 22626-VZYT SKIN LESIONS, 2 TO 4 09/26/20 23 Next Appt Details Provider Name:Facundo Mccabe , 02/24/2025 03:00:00 PM, [address] [facility], [address], [place], [address], Insurance Providers Payer Name Payer Address Payer Phone Subscriber Number Group Number Insured Name Patient Relationship to Insured Coverage Start Date Coverage End Date [facility] [employer] Claims [address] [place] [phone] [id number] Floridalma Trejo Self - patient is the insured Medical (General) History Medical History History ICD Code Anemia Angina Anxiety Arthritis Back,Hip,and Knee pain Cancer Cataracts covid-19 Depression Diabetic Headaches/Migraines Heart disease Numbness Poor circulation Rheumatic fever thyroid Measles Chicken pox Transfusions Replacement Heart Valves Surgical History Surgery Date(Month/Year) Valve replacement 2021
--- OUTSIDE RECORDS SUMMARY | 2024-12-21 17:45 | XMS_ITS | Encounter Summary ---
Author Organization [employer] Address [address] [place] [address] Care Team Providers Care Receiving Tank Operator Name Role Phone Josephine Romo MD Primary Care Provider [phone] Encounter Details Date Type Department Care Team ([facility] st Contact Info) Description 12/21/2024 2:00 PM EST Office Visit [facility] MEDICINE [address] [place], [place] [phone] Josephine Romo MD [address] [place], [place] [phone] Type 2 diabetes mellitus with stage 3 chronic kidney disease, with long-term current use of insulin, unspecified whether stage 3a or 3b CKD (CMS/HCC) Social History Tobacco Use Types Packs/Day Years Used Date Smoking Tobacco: Never Smokeless Tobacco: Never Tobacco Cessation:Counseling Given: Not Answered Alcohol Use Standard Drinks/Week Comments Never 0 [...] AM EDT documented as of this encounter Last Filed Vital Signs Vital Sign Reading Time Taken Comments Blood Pressure 119/66 12/21/2024 2:06 PM EST Pulse 68 12/21/2024 2:06 PM EST Temperature 36.9 ??C (98.5 ??F) 12/21/2024 2:06 PM ES T Respiratory Rate 17 12/21/2024 2:06 PM EST Oxygen Saturation - - Inhaled Oxygen Concentration - - Weight 76.3 kg (168 lb 3.2 oz) 12/21/2024 2:06 P M EST Height 162.6 cm (5' 4 ) 12/21/2024 2:06 PM EST Body Mass Index 28.87 12/21/2024 2:06 PM EST documented in this encounter Plan of Treatment Not on file documented as of this encounter Goals Goal Patient Goal Type Associated Problems Recent Progress Patient-Stated? Author Blood Pressure < 140/90 Blood Pressure 119/66(2024 2:06 PM EST) No Leeann Serna, PharmD Hemoglobin A1c < 8 Result Component 8.3( 2:12 PM EST) No Leeann Serna, PharmD documented as of this encounter Procedures Procedure Name Priority Date/Time Associated Diagnosis Comments CBC WITH AUTO DIFFERENTIAL Routine 12/21/2024 2:55 PM EST Type 2 diabetes mellitus with stage 3 chronic kidney disease, with long-term current use of insulin, unspecified whether stage 3a or 3b CKD ([facility]) LIPID PANEL, STANDARD Routine 12/21/2024 2:55 PM EST Type 2 diabetes mellitus with stage 3 chronic kidney disease, with long-term current use of insulin, unspecified whether stage 3a or 3b CKD (CMS/HCC) COMPREHENSIVE METABOLIC PANEL Routine 12/21/2024 2:55 PM EST Type 2 diabetes mellitus with stage 3 chronic kidney disease, with long-term current use of insulin, unspecified whether stage 3a or 3b CKD (CMS/HCC) POCT GLYCATED HEMOGLOBIN, TOTAL Routine 12/21/2024 2:12 PM EST Type 2 diabetes mellitus with stage 3 chronic kidney disease, with long-term current use of insulin, unspecified whether stage 3a or 3b CKD (CMS/HCC) POCT GLUCOSE Routine 12/21/2024 2:05 PM EST Type 2 diabetes mellitus with stage 3 chronic kidney disease, with long-term current use of insulin, unspecified whether stage 3a or 3b CKD ([facility]/HCC) documented in this encounter Results * (ABNORMAL) CBC auto differential (12/21/2024 2:55 PM EST) White Blood Count 7.5 4.8 - 10.8 X10*3/uL [facility] Red Blood Count 4.01(L) 4.20 - 5.50 X10*6/uL [facility] Hemoglobin 11.3(L) 12.0 - 16.0 g/dl [facility] Hematocrit 35.0(L) 37.0 - 47.0 % [facility] Mean Corpuscular Volume 87.3 80.0 - 98.0 fL [facility] Mean Corpuscular Hemoglobin 28.2 27.0 - 33.0 pg [facility] Mean Corpuscular HGB Conc 32.3 31.0 - 35.0 g/dl [facility] Red Cell Distribution Width 12.4 11.0 - 16.0 % [facility] Platelet Count 294 160 - 400 X10*3/uL [facility] Mean Platelet Volume 9.7 9.4 - 12.3 fL [facility] Neutrophils Percent Auto 71.7 45 - 73 % [facility] Imm Gran Pct Auto 0.4 0.0 - 0.4 % [facility] Lymphocytes Percent Auto 17.4(L) 20 - 40 % [facility] Monocytes Percent Auto 6.1 2 - 11 % [facility] Eosinophils Percent Auto 4.1(H) 0 - 4 % [facility] Basophils Percent Auto 0.3 0 - 2 % [facility] NRBC Pct Auto 0.0 0.0 - 0.2 /100WBC [facility] Neutrophils Absolute Auto 5.4 2.0 - 8.3 x10*3/uL [facility] Imm Gran Abs Auto 0.03 0.00 - 0.03 X10*3/uL [facility] Lymphocytes Absolute Auto 1.3 1.2 - 4.9 X10*3/uL [facility] Monocytes Absolute Auto 0.5 0.1 - 1.2 X10*3/uL [facility] Eosinophils Absolute Auto 0.3 0.0 - 0.4 X10*3/uL [facility] Basophils Absolute Auto 0.0 0.0 - 0.2 X10*3/uL [facility] NRBC Abs Auto 0.000 0.0 - 0.012 X10*3/uL [facility] Blood Venous blood specimen / Unknown 12/21/2024 2:55 PM EST 12/21/2024 4:20 PM EST us Josephine Romo MD LAB BLOOD ORDERABLES Final Res ult [facility] [address] [place] [phone] * (ABNORMAL) Lipid Panel, Standard (12/21/2024 2:55 PM EST) Triglycerides 163(H) <150 mg/dL [facility] Comment:Desirable Triglyceri de: less than 150 mg/dLBorderline High Triglyceride 150-199 mg/dLHigh Triglyceride: 200-499 mg/dLVery High Triglyceride: greater than or equal to 5OO mg/dL Cholesterol 187 <200 mg/dL [facility] Comment:Desirable Cholestero l: less than 200 mg/dLBorderline High Cholesterol: 200-239 mg/dLHigh Cholesterol: greater than 239 mg/dL LDL Cholesterol Calculated 116(H) <100 mg/dL [facility] Comment:Desirable LDL: less than 100 mg/dLNear Optimal/Above Optimal LDL: 110- 129 mg/dLBorderline High LDL: 130-159 mg/dLHigh LDL: 160-189 mg/dLVery High LDL: greater than or equal to 190 mg/dL HDL Cholesterol 39(L) >40 mg/dL [facility] Comment:Desirable HDL: great er than 40 mg/dL Note: This HDL assay may give artificially low results in patients with liver disease. Blood Venous blood specimen / Unknown 12/21/2024 2:55 PM EST 12/21/2024 4:20 PM EST us Josephine Romo MD LAB BLOOD ORDERABLES Final Res ult [facility] [address] [place] [phone] * (ABNORMAL) Comprehensive Metabolic Panel (12/21/2024 2:55 PM EST) Sodium 140 135 - 145 mmol/L [facility] Potassium 3.9 3.3 - 5.1 mmol/L [facility] Chloride 101 96 - 108 mmol/L [facility] Carbon Dioxide 32(H) 22 - 29 mmol/L [facility] Anion Gap 11(L) 12 - 20 [facility] Urea Nitrogen (BUN) 16 9 - 16 mg/dL [facility] Creatinine, Serum 0.91 0.5 - 1.4 mg/dL [facility] Estimated Glomerular Filt Rate 59 [facility] Comment:Chronic Kidney Disea se: Estimated GFR < 60 mL/min/1.59o5Diczww Kidney Disease: Estimated GFR < 15 mL/min/1.73m2 Glucose 102 60 - 115 mg/dL [facility] Calcium 9.1 8.4 - 10.2 mg/dL [facility] Bilirubin, Total 0.4 0.0 - 1.0 mg/dL [facility] Aspartate Amino Transferase 21 5 - 31 U/L [facility] Alanine Aminotransferase 10 0 - 31 U/L [facility] Total Protein 7.4 6.5 - 8.0 g/dL [facility] Albumin Level 4.0 3.5 - 5.0 g/dL [facility] Alkaline Phosphatase 99 39 - 117 U/L [facility] Blood Venous blood specimen / Unknown 12/21/2024 2:55 PM EST 12/21/2024 4:20 PM EST Result [facility] Josephine Romo MD LAB BLOOD ORDERABLES Final Res ult [facility] [address] [place] [phone] * (ABNORMAL) POCT HGB A1C (12/21/2024 2:12 PM EST) Hemoglobin A1C 8.3(A) 4.0 - 6.0 % [employer] Lot # [id number] Lot# Expiration Date [id number] Blood 12/21/2024 2:12 PM EST Result [facility] Josephine Romo MD POINT OF CARE TEST ENTER/EDIT ORDERABLES Final Result * POCT Glucose (12/21/2024 2:05 PM EST) Glucose Blood, POC 126 60 - 200 mg/dL [employer] Lot # [id number] Lot# Expiration Date [id number] Blood Capillary blood specimen / Unknown 12/21/2024 2:05 PM EST Result [facility] us Josephine Romo MD POINT OF CARE TEST ENTER/EDIT ORDERABLES Final Result documented in this encounter Visit Diagnoses Diagnosis Type 2 diabetes mellitus with stage 3 chronic kidney disease, with long-term current use of insulin, unspecified whether stage 3a or 3b CKD ([facility]/HCC) documented in this encounter Additional Health Concerns Assessment Noted Time PHQ-9 Depression Total Score: 2 04/10/20 23 2:06 PM EDT documented as of this encounter Care Teams Receiving Tank Operator Relationship Specialty Start Date End Date Josephine Romo MD [address] [place] [address] PCP - General Family Medicine 06/12/22 [employer] 03/06/23 documented as of this encounter
--- OUTSIDE RECORDS SUMMARY | 2024-12-21 17:45 | XMS_ITS | Encounter Summary ---
Author Organization [employer] Address [address] [place] [address] Care Team Providers Care Human Factors Scientist Name Role Phone Josephine Romo MD Primary Care Provider [phone] Encounter Details Date Type Department Care Team (Latest Contact Info) Description 12/21/2024 Travel Social History Tobacco Use Types Packs/Day Years Used Date Smoking Tobacco: Never Smokeless Tobacco: Never Alcohol Use Standard Drinks/Week Comments Never 0 (1 standard drink = 0.6 oz pur e alcohol) Depression Answer Date Recorded Patient Health Questionnaire-9 Score 2 04/10/2023 Housing Stability Answer Date Recorded What is your housing situation today? I have shikha elikns 08/22/[address] you li [...] documented as of this encounter Care Teams Human Factors Scientist Relationship Specialty Start Date End Date Josephine Romo MD [address] [place] [phone] PCP - General Family Medicine 06/12/22 [employer] 03/06/23 documented as of this encounter
--- OUTSIDE RECORDS SUMMARY | 2024-12-21 17:45 | XMS_ITS | Encounter Summary ---
Author Organization [employer] Address [address] [place] [address] Care Team Providers Care Sail Maker Name Role Phone Josephine Romo MD Primary Care Provider [phone] Encounter Details Date Type Department Care Team ([facility] st Contact Info) Description 10/23/2024 Orders Only [facility] MEDICINE [address] [place], [place] [phone] Josephine Romo MD [address] [place] [address] Type 2 diabetes mellitus with hyperglycemia, with long-term current use of insulin ([facility]) Social History Tobacco Use Types Packs/Day Years [...] Pressure 119/66(2024 2:06 PM EST) No Leeann Serna PharmD Hemoglobin A1c < 8 Result Component 8.3( 2:12 PM EST) No Leeann Serna PharmD documented as of this encounter Visit Diagnoses Diagnosis Type 2 diabetes mellitus with hyperglycemia, with long-term current use of insulin ([facility]) documented in this encounter Additional Health Concerns Assessment Noted Time PHQ-9 Depression Total Score: 2 04/10/20 23 2:06 PM EDT documented as of this encounter Care Teams Sail Maker Relationship Specialty Start Date End Date Josephine Romo MD [address] [place] [address] PCP - General Family Medicine 06/12/22 [employer] 03/06/23 documented as of this encounter
--- OUTSIDE RECORDS SUMMARY | 2024-12-21 17:45 | XMS_ITS ---
Author Organization [facility] Address [address] [place] [address] Care Team Providers Care Buncher Hand Name Role Phone Ivette Mahoney Primary Care Provider Facundo Hart Unavailable [phone] Allergies Allergen (clinical drug ingredient) Drug/Non Drug Allergy documented on EMR Reaction Allergy Type Onset Date Status aspirin Aspirin Unknown Drug Allergy Active heparin Heparin Unknown Drug Allergy Active oxycodone Oxycodone Unknown Drug Allergy Active Penicillin Unknown Drug Allergy Active REASON FOR VISIT At Risk Footcare, Painful Nail(s) aggrevated by shoes and causing difficulty standing/walking, Ingrown nail(s), Skin problem(s) Medications Medication SIG (Take, Route, Frequency, Duration) Notes Start Date End Date Status Torsemide 20 MG as directed Orally Active traZODone HCl 50 MG 1 tablet at bedtime as needed Orally Once a day Active NovoLOG Active Ammonium Lactate 12 % 1 application Exte rnally to affected areas of dry skin to feet except for between the toes Twice a day for 30 days Active Trulicity Active Lantus Active Gabapentin 100 MG 1 capsule [...] need ed Orally Once a day Active Social History Tobacco Use: Social History [...] Additional Findings: Tobacco non-user Current no nsmoker Vital Signs Height 5ft 4in in 11/30/2024 Weight 174 lbs 11/30/2024 BMI 29.86 kg/m2 11/30/2024 Blood pressure systolic 124 mm Hg 11/30/19 25 Blood pressure diastolic 76 mm Hg 025 Procedures Procedure Date Ordered Date Performed Result Body Sit e 09593-CQHOUOY NAIL, 6 OR MORE 11/30/2024 N/A 65063-Eoymtukj Plate 11/30/2024 N/A 58467-Pcbzgjud Plate Each Additional 11/30/2024 N/A 10842-KXBI SKIN LESIONS, 2 TO 4 11/30/2024 N/A Encounters Encounter Location Date Provider Diagnosis [facility] [address] [address] 11/30/2024 Facundo Mccabe Type 2 diabetes mellitus with diabetic peripheral angiopathy without gangrene E11.51 ; Tinea unguium B35.1 ; Pain in right toe(s) M79.674 ; Pain in left toe(s) M79.675 ; Ingrown nail L60.0 and Xerosis of skin L85.3 Assessments Encounter Date Diagnosis (ICD Code) Assessment Notes Treatment Notes Treatment Clinical Notes Section Notes 11/30/2024 Type 2 diabetes mellitus with diabetic peripheral angiopathy without gangrene (ICD-10 - E11.51) 11/30/2024 Tinea unguium (ICD-10 - B35.1) 11/30/2024 Pain in right toe(s) (ICD-10 - M79.674) 11/30/2024 Pain in left toe(s) (ICD-10 - M79.675) 11/30/2024 Ingrown nail (ICD-10 - L60.0) 11/30/2024 Xerosis of skin (ICD-10 - L85.3) 11/30/2024 Other Plan Of Treatment Pending Test Test Name Order Date 85589-UTDLNAZ NAIL, 6 OR MORE 11/30/2024 80370-Rxgbbslr Plate 11/30/2024 40395-Ukbxiwkq Plate Each Additional 07/2025 15363-BRVM SKIN LESIONS, 2 TO 4 11/30/19 25 Next Appt Details Follow Up: 2 Months, Reason: Provider Name:Facundo Mccabe , 02/24/2025 03:00:00 PM, [address], [address], [place], [address], Procedure Notes * Category Sub-Category Detail Notes [...] and future surgical procedures to prevent recurrence (71695/32) , DIABETES: Pt was advised as to the risk of delayed or nonhealing due to diabetes. Pt is to call the office with any questions, concerns, or complications Anesthesia was accomplished TOP ICALLY with Lidocaine Hydrochloride Jelly 2 percent , to each toe Location Lateral nail border , TA , T5 Debride Nail 6-10 Nail debridement Due to the cl inical pathology outlined in the exam findings, performance of this nail treatment is medically necessary as its management by an unskilled/untrained nonprofessional would put this patients foot and overall health at risk. Therefore, debridement to affected nail(s), as described in exam ( TA, T1, T2, T3, T4, T5, T6, T7, T8, T9 ), was performed exclusively by the physician of record to reduce/remove overall nail length, girth, thickness, subungual debris, and necrotic tissue, by manual and/or electrical means through the use of a nail nipper and/or dremel-type sugar grinder, to a more viable healthy nail plate or bed tissue 6-10 nails in total. Silver nitrate was used for any petechial bleeding as necessary. Definitive antifungal treatment options, both pharmaceutical and surgical, have been reviewed and discussed with the patient. The patient solely prefers the use of intermittent/as needed professional debridement services for their nail condition and understands the need for additional periodic treatments to maintain effectiveness in symptomatic relief - 99182 Keratoma Treatment Parring or Cutting o f Benign Hyperkeratotic Lesion(s) (-56) 2-4 Lesions - Due to the at risk nature of the patients medical condition as documented in the exam findings, performance of this keratoderma treatment is medically necessary as its management by an unskilled/untrained nonprofessional would put this patients foot and overall health at risk. Therefore, the benign hyperkeratotic lesions, ( 2 ) in total, locations as stated and described in the exam ( Plantar, Heel(s) , B/L ), were pared, and/or cut utilizing a sterile 15 blade, tissue nippers, and/or power dremel instrumentation by the physician of record - 84135, Q8 Progress Notes * Claudy CHOUDHARY:05/1945 (79 yo F)Acc No.[id number]:11/30/2024 Progress Note Patient:?Katherine CHOUDHARY Provider:?Facundo Mccabe DPM :1945???Age:79 Y???Sex:Female D ate:11/30/2024 Address:[address] [place], [place] [id number] Pcp:Ivette Mahoney Subjective: * Chief Complaints: * ???At Risk FootcarePainful N ail(s) aggrevated by shoes and causing difficulty standing/walkingIngrown nail(s)Skin problem(s) * HPI: ???At Risk footcare:?Pt States Last PCP Visit:?Date?08/24/2024 ???Skin problems:?Treatments:?medication ( AM Lactin ), states adherence to recommended treatment application.? * ROS:?General/Constitutional:?Nausea?denies.?Vomiting?denies.?Hunger Thirst?denies.?Loss appetite?denies.?Chills?denies.?Fatigue?denies.?Fever?denies.?Night Sweats?denies.?Unexplained weight loss?denies.?Unexplained weight gain?denies.?HEENTM:?Dentures?denies.?Dizziness?admits.?Glasses/contacts?admits.?Retinopathy?de nies.?Blurred/double vision?denies.?TMJ?denies.?Discharge/drainage?denies.?Implants?denies.?Sore throat?denies.?Dental implants?denies.?Hard of hearing ?denies.?Difficulty chewing/swallowing/speaking?denies.?Nose bleeds?denies.?Sore mouth?denies.?Respiratory:?On Oxygen?denies.?Pneumonia/pleurisy?denies.?Bronchitis?denies.?Emphysema?denies.?C oughing?denies.?Cough blood?denies.?Shortness of breath?denies.?Wheezing?denies.?Cardiovascular:?Pacemaker?denies.?MVP?denies.?WPW?denies.?CHF?denies.?Heart attack?denies.?Septal defect?denies.?Rapid beat?denies.?Chest pain ?denies.?Atrial Fib.?denies.?Murmur/Palpitations?denies.?Gastrointestinal:?Hemorrhoids?denies.?Stomach/Abdominal pain?denies.?Dark blood stool?denies.?Irritable bowel ?denies.?Constipation?denies.?Diarrhea?denies.?Hematology:?Swelling?admits.?Clots?denies.?Varicose Veins?admits.?Bruising?denies.?Bleeding problem?denies.?Genitourinary:?Blood urine?denies.?Frequent/Painfu/urination/bladder control?denies.?Kidney stones?denies.?Infection (UTI)?denies.?Nephropathy?denies.?sex trans dis (STD)?denies.?Prostate?denies.?Musculoskeletal:?Hammertoes?admits.?Bunions?denies.?Back Pain?denies.?Muscle Cramps/ Resting?denies.?Muscle cramps / walking?denies.?Generalized aches and pains?denies.?Weakness?denies.?Integ.:?Yang?denies.?Scars?denies.?Corns/calluses?admits.?Ingrown nails?admits.?Painful nails?admits.?Open Sores?denies.?Rashes?denies.?Neurologic:?Difficulty sleeping?denies.?Brain disorder?denies.?Numbness?denies.?Balance trouble?denies.?Confusion?denies.?Fainting/blackouts?denies.?Tingling?denies.?Tr emors?denies.? * Medical History:? * Surgical History:?Valve repl acement 2021 * Hospitalization/Major Diagno stic Procedure:?No Hospitalization History. * Family History:?Mother: dece ased, diagnosed with Unspecified heart disease.?Father: .?Spouse: .?Siblings: diagnosed with Diabetic - NIDDM.? * Social History:?Tobacco Use:?Tobacco use other than smoking?Are you an other tobacco user??No ?Tobacco Control (Standard)?Tobacco use:?Nonsmoker ?Additional Findings: Tobacco non-user?Current nonsmoker ???Drugs/Alcohol:?Drugs?Have you used drugs other than those [...] 20 MG Tablet as directed Orally Trulicity Ammonium Lactate 12 % Cream 1 application Externally to affected areas of dry skin to feet except for between the toes Twice a day Medication List reviewed and reconciled with the [...] Tablet as directed Orally Taking Trulicity Taking Ammonium Lactate 12 % Cream 1 application Externally to affected areas of dry skin to feet except for between the toes Twice a day Medication List reviewed and reconciled with the patient * Allergies:?PenicillinAspirin HeparinOxycodoneyes[Allergies Verified] Objective: * Vitals:?Ht: 5ft 4in, Wt: 174 , BMI: 29.86, Shoe size: 8, BP: 124/76 mm Hg, BS: 289, Wt-k.93 kg. * ???Past Orders: Lab:HEMOGLOBIN A1C (GLYCOHEM OGLOBIN) * Collection Date 08/21/2024 09/26/2023 Collection Time 12:29 PM 01:09 PM Order Date 08/21/2024 09/26/2023 HEMOGLOBIN A1C % (HH) 7.9 10 * Examination: ???Vascular: ?DP PULSES (B):? 0/4, B/L.?PT PULSES (B):? 0/4, B/L.?CAPILLARY FILL TIME:? delayed, all digits, B/L.?TROPHIC CONDITION-TEXTURE/ELASTICITY/TURGOR/HAIR GROWTH (B):? decreased,?with sparse to absent hair growth, B/L.?TEMPERTURE GRADIENT (C):? decreased, cool to cool, proximal to distal, B/L.?PIGMENTATION:?mottled, B/L.?EDEMA (C):?2/4 , non-pitting , without aching pain , Leg(s) , Ankle(s) , Foot , B/L.?CLAUDICATION (C):?denies, B/L.?REST PAIN:?denies, B/L.?Nails: ?NAILS are:?Elongated, overgrown, dystrophic, lytic, greater than 3mm thick, discolored and friable with crumbly malodorous subungual debris, with pain on palpation?, TA, T1, T2, T3, T4, T5, T6, T7, T8, T9.?Dermatologic: ?SKIN FINDINGS:?Skin exam reveals Keratotic lesion(s) located at , Plantar, Heel(s) , B/L , Skin shows approximately 80 percent LESS, sign(s) of, dryness, scaling, in a stocking fashion, no fissure(s) present, B/L.?Ingrown Nail: ?INSPECTION:?Reveals nail incurvation, pain on palpation, groove hypertrophy , Lateral nail border , TA , T5.? Assessment: * Assessment: 1.?Type 2 diabetes mellitus with diabetic peripheral angiopathy without gangrene - E11.51 (Primary)???2.?Tinea unguium - B35.1???3.?Pain in right toe(s) - M79.674???4.?Pain in left toe(s) - M79.675???5.?Ingrown nail - L60.0???Specify :Lateral nail border , TA , T5???6.?Xerosis of skin - L85.3???Specify :Acute problem, Stable Response to treatment - Improvement??? Plan: * Treatment: 2.?Tinea unguium?Procedure: 98118-CEZRWCM NAIL, 6 OR MORE 3.?Ingrown nail?Procedure: 86479-Ziowwdvt Plate ?Procedure: 40893-Eclambll Plate Each Additional * Procedures:?Debride Nail 6-10:?Nail debridement?Due to the clinical pathology outlined in the exam findings, performance of this nail treatment is medically necessary as its management by an unskilled/untrained nonprofessional would put this patients foot and overall health at risk. Therefore, debridement to affected nail(s), as described in exam (?TA, T1, T2, T3, T4, T5, T6, T7, T8, T9?), was performed exclusively by the physician of record to reduce/remove overall nail length, girth, thickness, subungual debris, and necrotic tissue, by manual and/or electrical means through the use of a nail nipper and/or dremel-type sugar grinder, to a more viable healthy nail plate or bed tissue 6- 10 nails in total. Silver nitrate was used for any petechial bleeding as necessary. Definitive antifungal treatment options, both pharmaceutical and surgical, have been reviewed and discussed with the patient. The patient solely prefers the use of intermittent/as needed professional debridement services for their nail condition and understands the need for additional periodic treatments to maintain effectiveness in symptomatic relief - 19392.?Keratoma Treatment:?Parring or Cutting of Benign Hyperkeratotic Lesion(s)?(-56) 2-4 Lesions - Due to the at risk nature of the patients medical condition as documented in the exam findings, performance of this keratoderma treatment is medically necessary as its management by an unskilled/untrained nonprofessional would put this patients foot and overall health at risk. Therefore, the benign hyperkeratotic lesions, ( 2 ) in total, locations as stated and described in the exam (?Plantar,?Heel(s)?,?B/L?), were pared, and/or cut utilizing a sterile 15 blade, tissue nippers, and/or power dremel instrumentation by the physician of record - 08837, Q8.?Nail Avulsion:?Location?Lateral nail border?,?TA?,?T5.?Anesthesia?was accomplished TOPICALLY with [...] and future surgical procedures to prevent recurrence (53159/32) , DIABETES: Pt was advised as to the risk of delayed or nonhealing due to diabetes. Pt is to call the office with any questions, concerns, or complications.? * Procedure Codes:?66621 DEBRI DE NAIL, 6 OR MORE, Modifiers: XS 04286 Avulsion Plate, Modifiers: XS , [id number] Avulsion Plate Each Additional, Modifiers: XS , [id number] TRIM SKIN LESIONS, 2 TO 4, Modifiers: XS , Q8 * Preventive Medicine:? ??Counseling:?Discussion:?-12: Office or other outpatient visit for the evaluation and management of an established patient, which required a medically appropriate history and/or examination and STRAIGHTFORWARD level of MEDICAL DECISION MAKING, 1 SELF-LIMITED OR MINOR PROBLEM, MINIMAL- NO AMOUNT/COMPLEXITY OF DATA TO BE REVIEWED/ANALYZED, AND MINIMAL RISK OF COMPLICATION/MORBIDITY. The visit on the day of the [...] have encouraged the patient to call the office.?Xerosis:?Given recent successful results to treatment, The patient is to cont the rx cream as directed.? ??Screening/Special Tests:?Fall Risk?Screening:?No falls in the past year ?FALLS: Screening for Future Fall Risk?Have you had any falls with injury in the past year??No * Follow Up:?2 Months * Images: * Sign off status: Completed true * Provider:?Facundo Mccabe DPM Date:?2024 Generated for John jimenez/Jaqui/eTcedricksmitting on:?12/21/2024 09:53 AM EST History and Physical Notes * HPI (History of Present Illness) Category Sub-Category Detail Notes Category Not es Skin problems Treatments: medication ( AM Lactin ), states adherence to recommended treatment application At Risk footcare Pt States Last PCP Visit: Date: 08/24/2024 Examination Category Sub-Category Detail Notes Category Not es Ingrown Nail INSPECTION: Reveals nail inc urvation, pain on palpation, groove hypertrophy , Lateral nail border , TA , T5 Dermatologic SKIN FINDINGS: Skin exam reveal s Keratotic lesion(s) located at , Plantar, Heel(s) , B/L , Skin shows approximately 80 percent LESS, sign(s) of, dryness, scaling, in a stocking fashion, no fissure(s) present, B/L Vascular DP PULSES (B): 0/4, B/L PT PULSES (B): 0/4, B/L CAPILLARY FILL TIME: delayed, all digits , B/L TEMPERTURE GRADIENT (C): decreased, cool to cool, proximal to distal, B/L TROPHIC CONDITION-TEXTURE/ELASTICITY/TURGOR/HAIR GROWTH (B): decreased, with sparse to absent hair gr owth, B/L EDEMA (C): 2/4 , non-pitting , without aching pain , Leg(s) , Ankle(s) , Foot , B/L CLAUDICATION (C): denies, B/L REST PAIN: denies, B/L PIGMENTATION: mottled, B/L Nails NAILS are: Elongated, overg rown, dystrophic, lytic, greater than 3mm thick, discolored and friable with crumbly malodorous subungual debris, with pain on palpation , TA, T1, T2, T3, T4, T5, T6, T7, T8, T9
--- OUTSIDE RECORDS SUMMARY | 2024-12-21 17:45 | XMS_ITS | Encounter Summary ---
Author Organization [facility] Address [address] [place] [address] Care Team Providers Care Side Stitching Machine Operator Name Role Phone Josephine Romo MD Primary Care Provider [phone] Encounter Details Date Type Department Care Team ([facility] st Contact Info) Description 06/19/2023 Orders Only [facility] [address] [place], [place] [phone] Josephine Romo MD [address] [place] [address] Primary insomnia Social History Tobacco Use Types Packs/Day Years Used Date Smoking Tobacco: Never Smokeless Tobacco: Never Alcohol Use Standard Drinks/Week Comments Never 0 (1 standard drink = 0.6 oz pur e alcohol) Depression Answer Date Recorded Patient Health Questionnaire-9 Score 2 04/10/2023 Depression Answer Date Recorded Patient Health Questionnaire-2 [...] as of this encounter Visit Diagnoses Diagnosis Primary insomnia Persistent disorder of initiating or maintaining sleep documented in this encounter Additional Health Concerns Assessment Noted Time PHQ-9 Depression Total Score: 2 04/10/20 23 2:06 PM EDT documented as of this encounter Care Teams Side Stitching Machine Operator Relationship Specialty Start Date End Date Josephine Romo MD [address] [place] [address] PCP - General Family Medicine 06/12/22 [employer] 03/06/23 documented as of this encounter
--- OUTSIDE RECORDS SUMMARY | 2024-12-21 17:45 | XMS_ITS | Encounter Summary ---
Author Organization [facility] Address [address] [facility] [address] [place] [address] Care Team Providers Care Solar System Installer Name Role Phone Josephine Romo MD Primary Care Provider [phone] Reason for Visit * Reason Comments Pre-visit Planning (Unable to reach for PVP screening and or LVM) Encounter Details Date Type Department Care Team ([facility] Contact Info) Description 12/09/2024 Patient Outreach [facility] [address] [place] [address] Josephine Romo MD [address] [place] [address] Pre-visit Planning ((Unable to reach for PVP screening and or LVM)) Social History Tobacco Use Types Packs/Day Years [...] AM EDT documented as of this encounter Progress Notes * Sylvia Hedrick - 12/09/2024 9:09 AM EST CC Sylvia placed outbound call to patient to complete pre-visit planning. No answer at this time. Patient name and were not confirmed. CC unable to leave a voice message. documented in this encounter Plan of Treatment Not on file documented as of this encounter Goals Goal Patient Goal Type Associated Problems Recent Progress Patient-Stated? Author Blood Pressure < 140/90 Blood Pressure 119/66(2024 2:06 PM EST) No Piers-Gambl e, Leeann, PharmD Hemoglobin A1c < 8 Result Component 8.3( 2:12 PM EST) No Raudels-Gambl e, Leeann, PharmD documented as of this encounter Visit Diagnoses Not on filedocumented in this encounter Additional Health Concerns Assessment Noted Time PHQ-9 Depression Total Score: 2 04/10/20 23 2:06 PM EDT documented as of this encounter Care Teams Solar System Installer Relationship Specialty Start Date End Date Josephine Romo MD [address] [place] [id number] PCP - General Family Medicine 06/12/22 [employer] 03/06/23 documented as of this encounter
--- OUTSIDE RECORDS SUMMARY | 2024-12-21 17:45 | XMS_ITS ---
[facility] Address [address] [place] [address] Care Team Providers Care Statistical Methods Teacher Name Role Phone Ivette Mahoney Primary Care Provider Facundo Hart Unavailable [phone] Allergies Allergen (clinical drug ingredient) Drug/Non Drug [...] Duration) Notes Start Date End Date Status Ammonium Lactate 12 % 1 application Exte rnally to affected areas of dry skin to feet except for between the toes Twice a day for 30 days Active Gabapentin 100 MG 1 capsule Orally Onc e a day Active Docusate Sodium 100 MG 1 capsule as need ed Orally Once a day Active Ferrous Gluconate 324 (38 Fe) MG 1 tablet Orally Three times a Week Active DULoxetine HCl 30 MG 1 capsule Orally On ce a day Active traZODone HCl 50 MG 1 tablet at bedtime as needed Orally Once a day Active NovoLOG Active Extra Depth Orthopedic Shoes, (1) Pair With (3) Pair Custom Heat Molded Multidensity Innersoles Dx: NIDDM/PVD(E11.51), Hammertoe Foot Deformity(M20.41,M20.42), Preulcerative Skin Lesion(s)(L85.1) Wear Daily for 365 days 09/26/2023 Active Trulicity Active Torsemide 20 MG as directed Orally Active Lantus Active Metoprolol Tartrate 50 MG 1 tablet with food Orally Twice a day Active Social History Tobacco Use: Social History Observation Description Date Details (start date - stop date) Never Smoker NA - NA Tobacco Use/Smoking Question Answer Notes Are you a: nonsmoker Additional Findings: Tobacco Non-User Current no n-smoker Tobacco use other than smoking: Question Answer Notes Are you an other tobacco user? No Vital Signs Height 5ft 4in in 09/02/2024 Weight 174 lbs 09/02/2024 BMI 29.86 kg/m2 09/02/2024 Procedures Procedure Date Ordered Date Performed Result Body Sit e 68444-AJCURGX NAIL, 6 OR MORE 09/02/2024 N/A 22381-Rnlzilze Plate 09/02/2024 N/A 59016-Stslfvbw Plate Each Additional 09/02/2024 N/A 47446-XUIH SKIN LESIONS, 2 TO 4 09/02/2024 N/A Encounters Encounter Location Date Provider Diagnosis [facility] [address] [place] [phone] 09/02/2024 Facundo Mccabe Type 2 diabetes mellitus with diabetic peripheral angiopathy without gangrene E11.51 ; Tinea unguium B35.1 ; Pain in right toe(s) M79.674 ; Pain in left toe(s) M79.675 ; Ingrown nail L60.0 and Xerosis of skin L85.3 Assessments Encounter Date Diagnosis (ICD Code) Assessment Notes Treatment Notes Treatment Clinical Notes Section Notes 09/02/2024 Type 2 diabetes mellitus with diabetic peripheral angiopathy without gangrene (ICD-10 - E11.51) 09/02/2024 Tinea unguium (ICD-10 - B35.1) 09/02/2024 Pain in right toe(s) (ICD-10 - M79.674) 09/02/2024 Pain in left toe(s) (ICD-10 - M79.675) 09/02/2024 Ingrown nail (ICD-10 - L60.0) 09/02/2024 Xerosis of skin (ICD-10 - L85.3) 09/02/2024 Other Plan Of Treatment Medication Medication Name Sig Start Date Stop Date Notes Ammonium Lactate 12 % 1 application Exte rnally to affected areas of dry skin to feet except for between the toes Twice a day for 30 days Pending Test Test Name Order Date 54171-QOWZTFC NAIL, 6 OR MORE 09/02/2024 32994-Gwpbtbdr Plate 09/02/2024 94152-Iwgtrkqq Plate Each Additional 90542-MZGR SKIN LESIONS, 2 TO 4 09/02/20 24 Next Appt Details Follow Up: 2 Months, Reason: Provider Name:Facundo Hemalatha KimEliot , 02/24/2025 03:00:00 PM, [address] [facility], [address], [place], [address], Procedure Notes * Category Sub-Category Detail Notes [...] and future surgical procedures to prevent recurrence (38276/32) , DIABETES: Pt was advised as to [...] debridement to affected nail(s), as described in exam, was performed extensively to reduce/remove overall nail length, girth, thickness, subungual debris, and necrotic tissue, by manual and/or electrical means through the use of a nail nipper and/or dremel-type liquor grinder mill operator, to a more viable healthy nail plate or bed tissue 6-10. Silver nitrate used for any petechial bleeding as necessary. Definitive antifungal treatment options have been reviewed and discussed with the patient. The patient chooses, no pharmaceutical tx - 96039 Keratoma Treatment Parring or Cutting o f Benign Hyperkeratotic Lesion(s) (-56) 2-4 Lesions - The Benign hyperkeratotic lesions, as described in exam, were pared, and/or cut utilizing a sterile 15 blade, tissue nippers, and/or dremel - 00112, Q8 Progress Notes * Claudy CHOUDHARY:05/1945 (79 yo F)Acc No.[id number]:09/02/2024 Progress Note Patient:?AALIYAHLONGKatherine Provider:?Facundo Mccabe DPM :1945???Age:79 Y???Sex:Female D ate:09/02/2024 Address:[address] [place], [place] [id number] Pcp:Ivette Mahoney Subjective: * Chief Complaints: * ???At Risk FootcarePainful N ail(s) aggrevated by shoes and causing difficulty standing/walkingIngrown nail(s)Skin problem(s) * HPI: ???At Risk footcare:?Pt States Last PCP Visit:?Date?08/24/2024 ???Skin problems:?Nature:?dryness , scaling.?Location:?B/L .?Duration:?several days.?Course:?worse.? * ROS:?General/Constitutional:?Nausea?denies.?Vomiting?denies.?Hunger Thirst?denies.?Loss appetite?denies.?Chills?denies.?Fatigue?denies.?Fever?denies.?Night Sweats?denies.?Unexplained weight loss?denies.?Unexplained weight gain?denies.?HEENTM:?Dentures?denies.?Dizziness?admits.?Glasses/contacts?denies.?Retinopathy?de nies.?Blurred/double vision?denies.?TMJ?denies.?Discharge/drainage?denies.?Implants?denies.?Sore throat?denies.?Dental implants?denies.?Hard of hearing ?denies.?Difficulty [...] repl acement 2021 * Hospitalization/Major Diagno stic Procedure:?Denies Past Hospitalization * Family History:?Mother: dece ased, diagnosed with Unspecified heart disease.?Father: .?Spouse: .?Siblings: diagnosed with Diabetic - NIDDM.? * Social History:?Tobacco Use:?Tobacco Use/Smoking?Are you a:?nonsmoker ?Additional Findings: Tobacco Non-User?Current non-smoker ?Tobacco use other than smoking?Are you an other tobacco user??No * Medications:?TakingDocusate Sodium 100 MG Capsule 1 [...] 174 , BMI: 29.86, Shoe size: 8, BS: 201, Wt-k.93 kg. * ???Past Orders: ???Lab:HEMOGLOBIN A1C (GLYCO HEMOGLOBIN) (Order Date - 09/26/2023) (Collection Date & Time - 09/26/2023 01:09 PM) ? Value Reference Range ?HEMOGLOBIN A1C % (HH) 10 * Examination: ???Vascular: ?DP PULSES (B):? [...] Plantar, Heel(s) , B/L , Skin shows sign(s) of, dryness, scaling, in a stocking [...] T5???6.?Xerosis of skin - L85.3???Specify :Acute problem, Uncomplicated (3),Rx Management (4)??? Plan: * Treatment: 2.?Tinea unguium?Procedure: 95630-LCUDJGY NAIL, 6 OR MORE 3.?Ingrown nail?Procedure: 59282-Tgilvbwu Plate ?Procedure: 12938-Ljbgctwp Plate Each Additional 4.?Xerosis of skin? Start Ammonium Lactate Cream, 12 %, 1 application, Externally to affected areas of dry skin to feet except for between the toes, Twice a day, 30 days, 140, Refills 2.?? * Procedures:?Debride Nail 6-10:?Nail debridement?Performance of this nail treatment by a nonprofessional would put this patients foot and overall health at risk. Therefore, debridement to affected nail(s), as described in exam, was performed extensively to reduce/remove overall nail length, girth, thickness, subungual debris, and necrotic tissue, by manual and/or electrical means through the use of a nail nipper and/or dremel-type liquor grinder mill operator, to a more viable healthy nail plate or bed tissue 6-10. Silver nitrate used for any petechial bleeding as necessary. Definitive antifungal treatment options have been reviewed and discussed with the patient. The patient chooses, no pharmaceutical tx - 77748.?Keratoma Treatment:?Parring or Cutting of Benign Hyperkeratotic Lesion(s)?(-56) 2-4 Lesions - The Benign hyperkeratotic lesions, as described in exam, were pared, and/or cut utilizing a sterile 15 blade, tissue nippers, and/or dremel - 73056, Q8.?Nail Avulsion:?Location?Lateral nail border?,?TA?,?T5.?Anesthesia?was accomplished TOPICALLY with [...] and future surgical procedures to prevent recurrence (97561/32) , DIABETES: Pt was advised as to the risk of delayed or nonhealing due to diabetes. Pt is to call the office with any questions, concerns, or complications.? * Procedure Codes:?56170 DEBRI DE NAIL, 6 OR MORE, Modifiers: XS 91490 Avulsion Plate, Modifiers: XS , OB65056 Avulsion Plate Each Additional, Modifiers: XS , [id number] TRIM SKIN LESIONS, 2 TO 4, Modifiers: [...] have encouraged the patient to call the office.?Xerosis:?The patient was counseled on the diagnosis, potential etiologies, and treatment options for their skin condition. We discussed the risks and benefits of each option from performing no treatment, to utilizing OTC topical skin creams/ointments, to utilizing prescription topical creams/ointments, to utilizing customized compounded topical medications and use of nocturnal occlusion with any/all previously detailed therapies. We discussed the advantages and disadvantages of each possible treatment and importance for adherence to all the recommended therapies for optimum success and avoid potential complications such as open sore/infection/possible hospitalization. We discussed the potential effectiveness of each topical preparation as well as each ones possible side effects and/or patient medication interactions. Patient questions re: use, dosage, successful outcomes, and application consistency were reviewed and the patient verbalized that all answers were clearly understood. The patient has decided to apply Rx skin creams to their feet save the interspaces while paying special attention to the heels. Such was sent to their pharmacy at the time of visit.? ??Screening/Special Tests:?Fall Risk?Screening:?No falls in the past year ?FALLS: Screening for Future Fall Risk?Have you had any falls with injury in the past year??No * Follow Up:?2 Months * Images: * Sign off status: Completed true * Provider:?Facundo Mccabe DPM Date:?2023 Generated for John jimenez/Jaqui/Marta on:?12/21/2024 09:53 AM EST History and Physical Notes * HPI (History of Present Illness) Category Sub-Category Detail Notes Category Not es Skin problems Nature: dryness , scaling Location: B/L Duration: several days Course: worse At Risk footcare Pt States Last PCP Visit: Date: 4 Examination Category Sub-Category Detail Notes Category Not es Ingrown Nail INSPECTION: Reveals nail inc urvation, pain on palpation, groove hypertrophy , Lateral nail border , TA , T5 Dermatologic SKIN FINDINGS: Skin exam reveal s Keratotic lesion(s) located at , Plantar, Heel(s) , B/L , Skin shows sign(s) of, dryness, scaling, in a stocking [...]
--- OUTSIDE RECORDS SUMMARY | 2024-12-21 17:45 | XMS_ITS | Clinical Summary ---
Author Organization [employer] [facility] Address [address] [place] [address] Care Team Providers Care Cardiovascular Rn Name Role Phone Josephine Romo MD Primary Care Provider [phone] Allergies Active Allergy Reactions Criticality Noted Date Comments Aspirin Anaphylaxis,Rash High 06/21/2021 Other reaction(s): Rash, Rash Other reaction(s): ITCHY MOUTH AND SWELLING rash Other reaction(s): Not available Furosemide Itching Low 09/24/2022 Other reaction(s): itching Heparin Unknown 03/26/2022 Other reaction(s): Heparin-induced thrombocytopenia Other reaction(s): Heparin-induced thrombocytopenia with thrombosis Other reaction(s): Not available Metformin 09/06/2021 Other reaction(s): GI Problems Oxycodone Unknown 09/24/2022 Other reaction(s): Delirium/hallucination Other reaction(s): Delirium/hallucination Other reaction(s): Not available Penicillin G Anaphylaxis,Unknown High 04/12/2023 angioedema rash Penicillins Angioedema 06/21/2021 Other reaction(s): Rash, Rash Medications * This document contains information received from the source organization and may not represent a complete record from that organization. torsemide (Demadex) 20 MG tablet TAKE 2 TABLETS (40 MG) BY MOUTH EVERY DAY 11/22/19 23 Active glucose-vitami n C 4-6 GM-MG oral gel Chew 1 tablet if needed for low blood sugar. CHEW 4 TABLETS BY MOUTH IF NEEDED FOR BLOOD SUGAR <70.CONTINUE TO MONITOR BLOOD SUGAR EVERY 15 MINUTES UNTIL 2 READINGS ARE >80 50 tablet 1 04/12/20 23 Active Pentips 32G X 4 MM misc USE FOUR TIMES DAILY WITH INSULIN 100 each 11 07/01/20 23 Active Diclofenac Sodium (Voltaren) 1 % gel Use topical BID 150 g 2 07/24/20 23 Active lidocaine-pril ocaine (Emla) 2.5-2.5 % cream APPLY TO THE AFFECTED AREA(S) ONCE DIRECTED 09/20/20 23 Active omeprazole OTC (PriLOSEC OTC) 20 MG EC tablet Take 1 tab po BID for 14 days. 28 tablet 1 11/25/19 24 Active polyethylene glycol, PEG, 3350 (MiraLax) 17 GM/SCOOP powder 17 grams in 8-12 oz fluid like water q AM prn constipation 527 g 2 11/25/19 24 Active hydrOXYzine HCl (Atarax) 10 MG tabletIndicati ons:Anxiety TAKE 1 TO 2 TABLETS BY MOUTH TWICE DAILY NEEDED FOR ANXIETY 60 tablet 3 11/28/19 24 Active omeprazole (PriLOSEC) [address] capsule Take 20 mg by mouth 2 times daily. 11/25/19 24 Active propranolol LA (Inderal LA) 120 MG 24 hr capsule Take 1 capsule (120 mg) by mouth in the morning. Do not crush, chew, or split. 90 capsule 3 01/27/20 24 2024 Active docusate sodium (Colace) 100 MG capsule TAKE 1 CAPSULE BY MOUTH TWICE DAILY IN THE MORNING AND IN THE EVENING 180 capsule 3 04/07/20 24 Active Acetaminophen Extra Strength 500 MG tablet TAKE 1 TABLET BY MOUTH EVERY 6 HOURS NEEDED FOR MILD PAIN 120 tablet 04/10/20 24 Active Alcohol Swabs (Alcohol Prep) 70 % pads USE DIRECTED FOUR TIMES DAILY 100 each 11 06/01/20 24 Active DULoxetine (Cymbalta) [address] capsule TAKE 1 CAPSULE BY MOUTH EVERY MORNING (FOR MOOD) 90 capsule 3 07/07/20 24 Active ferrous gluconate (Fergon) 324 (38 Fe) MG tabletIndicati ons:Other iron deficiency anemia TAKE 1 TABLET BY MOUTH EVERY MORNING WITH BREAKFAST 90 tablet 1 08/05/20 24 Active TRUEplus Lancets 33G misc TEST BLOOD SUGAR FOUR TIMES DAILY 100 each 11 08/17/20 24 Active traZODone (Desyrel) 100 MG tabletIndicati ons:Other insomnia TAKE 1 TABLET BY MOUTH AT BEDTIME 90 tablet 1 08/20/20 24 Active cholecalcifero l (Vitamin D-3) 50 MCG (1999 UT) tablet Take 50 mcg by mouth in the morning. Active FREESTYLE LITE test stripIndicatio ns:Type 2 diabetes mellitus with stage 3 chronic kidney disease, with long-term current use of insulin, unspecified whether stage 3a or 3b CKD ([facility]) TEST BLOOD SUGAR FOUR TIMES DAILY 100 strip 11 09/16/20 24 Active Blood Glucose Monitoring Suppl (FreeStyle [place] Lite) w/Device kitIndications :Type 2 diabetes mellitus with stage 3 chronic kidney disease, with long-term current use of insulin, unspecified whether stage 3a or 3b CKD ([facility]) TEST BLOOD SUGAR FOUR TIMES DAILY 1 kit 10/22/19 25 Active Lantus SoloStar 100 UNIT/ML pen Inject 40 Units under the skin Once per day. 15 mL 3 10/23/19 25 Active insulin aspart (NovoLOG FLEXPEN) 100 UNIT/ML penIndications :Type 2 diabetes mellitus with hyperglycemia, with long-term current use of insulin ([facility]) INJECT 5 TO 15 UNITS THREE TIMES DAILY WITH MEALS (SLIDING SCALE: 150-199 =5 UNITS, 200-249 =7 UNITS, 250-300 =9 UNITS, 300-349 =11 UNITS, 350-399 =13 u,400-449 =15 UNITS) 15 mL 10/23/19 25 Active gabapentin (Neurontin) 100 MG capsule TAKE 1 CAPSULE BY MOUTH THREE TIMES DAILY IN THE MORNING, AT NOON, AND AT BEDTIME 90 capsule 11/25/19 25 Active Dulaglutide (Trulicity) 4.5 MG/0.5ML solution auto-injector Inject 4.5 mg under the skin 1 (one) time per week. 2 mL 12/22/192025 Active budesonide-for moterol (Symbicort) 160-4.5 MCG/ACT inhaler Inhale 2 puffs in the morning and at bedtime. Rinse mouth with water after use to reduce aftertaste and incidence of candidiasis. Do not swallow. 1 each 12/22/19 25 2025 Active Ventolin HFA 108 (90 Base) MCG/ACT inhaler INHALE 2 PUFFS BY MOUTH EVERY 4 HOURS 01/19/202024 Discontinued(S lilly effects) ipratropium-al buterol (Duo-Neb) 0.5-2.5 mg/3 mL nebulizer solution 3 mL. 2024 Discontinued(T herapy completed) dulaglutide (Trulicity) 3 MG/0.5ML solution pen-injector Inject 3 mg under the skin 1 (one) time per week. 4 each 11 12/20/19 24 2024 Discontinued(D ose adjustment) gabapentin (Neurontin) 100 MG capsule TAKE 1 CAPSULE BY MOUTH THREE TIMES DAILY IN THE MORNING, AT NOON, AND AT BEDTIME 90 capsule 3 07/20/20 24 2024 Discontinued Active Problems Problem Noted Date Diagnosed Date Anemia in chronic kidney disease 05/20/2024 Edema of both lower legs 05/20/2024 Vitamin D deficiency 05/20/2024 Hypertension 05/20/2024 Chronic right shoulder pain 03/10/2024 Assessment & Plan (03/10/2024 8:03 PM EDT): Likely OA, ro fracture Arm immobilized in a sling for comfort, advised to do regular exercises, rotation and stretching of shoulder daily. Order Xray of shoulder and fu results Rx tramadol 25-50mg + Tylenol 500mg up to tid prn severe pain. Caution with sedation, dizziness, dis balance, constipation and MS changes. Refer to PT. Aortic heart valve prolapse 01/27/2024 Assessment & Plan (01/27/2024 4:46 PM EDT): Needs abx prophy prior to dental procedure Allergic to PCN Azithromycin 500mg times one prior to procedure Conductive hearing loss, bilateral 01/27/2024 Functional urinary incontinence 05/27/2023 Hypothyroid 04/12/2023 Assessment & Plan (01/27/2024 4:33 PM EDT): On Synthroid 50mcg Lab Results Component Value Date TSH 1.78 02/24/2023 Nevus 04/02/2023 Assessment & Plan (04/02/2023 10:02 AM EDT): Derm referral for removal Other insomnia 04/02/2023 Assessment & Plan (01/27/2024 4:30 PM EDT): Increase Trazodone to 100mg nightly Try to improve constipation so that she does not have to urinate as much at night Assessment & Plan (04/02/2023 10:03 AM EDT): Trial Trazodone 50mg nightly Iron deficiency anemia 04/01/2023 Assessment & Plan (01/27/2024 4:39 PM EDT): Check H/H If normalized can stop iron supplements Assessment & Plan (04/01/2023 9:51 AM EDT): Continue iron supplemetation Poor mobility 01/28/2023 Assessment & Plan (01/28/2023 6:33 AM EDT): Patient reports she is uncomfortable and unsafe in [facility], has pain Will ask [facility] to switch to [facility] bed Heart disease 06/28/2022 Type 2 diabetes mellitus with peripheral angiopa thy 06/28/2022 Assessment & Plan (10/23/2024 1:07 PM EST): On Trulicity 3mg weekly and she has noticed much less appetite Tried CGM and she could not tolerate the tape needed to keep in on her arm Would not qualify for endocrinology currently due to A1C <9 On sliding scale insulin Aspart with meals (as below) and taking 40 units of Lantus at midday she tried many oral medications in [place], remembers that she cannot tolerate Metformin. Does not want to trial other oral medications currently Sliding scale: 150-199 =5 UNITS, 200-249 =7 UNITS, 250-300 =9 UNITS, 300-349 =11 UNITS, 350-399 =13 u,400-449 =15 UNITS VNA services with [facility] have started but the person comes once a day so does not administer any insulin. Assessment & Plan (01/27/2024 4:41 PM EDT): Current A1c: 8.4 BMP: Lab Results Component Value Date CREATININE 1.15 09/16/2023 EGFR 46 09/16/2023 Microalbumin: Foot Exam: Complete at follow up Eye Exam: Discuss at follow up Lipid panel: ASCVD: Calculate pending updated labs Statin: Yes ASA: No RAZIA/ARB: No Encouraged regular aerobic exercise for improved glycemic control Encouraged daily foot checks Encouraged lean protein snacks and to avoid foods high in sugar and simple carbohydrates Treatment Goals: A1c goal: <7% FBG goal: <130 2 hour post prandial goal: <180 Assessment & Plan (10/02/2023 6:35 AM EST): Not at goal, A1C 10.2 Lantus 25 units during the day now and sliding scale with meals Continue to recommend oral meds, pt and niece decline, as the risk of hypoglycemia would be lower Continue Trulicity 1.5mg weekly Will see if can have VNA twice a day to actually administer insulin Declines podiatry, failed monofilament exam today-- will refer for Diabetic shoe fitting/measurement so that she can have diabetic shoes made Needs microalbumin JEANNA due On statin and ELiquis Assessment & Plan (09/18/2023 9:31 AM EST): Not at goal, A1C 10.2 Unclear what doses of insulin patient is giving herself and at what frequency Continue to recommend oral meds, pt and niece decline Pt will re-initiate Trulicity 1.5mg weekly Will see if can have VNA twice a day to actually administer insulin Declines podiatry, failed monofilament exam today-- will refer for Diabetic shoe fitting/measurement so that she can have diabetic shoes made Needs microalbumin JEANNA due Assessment & Plan (04/02/2023 10:01 AM EDT): Not at goal, A1C 10.9 Unclear what doses of insulin patient is giving herself and at what frequency Continue to recommend oral meds, pt and niece decline Will see if can have VNA twice a day to actually administer insulin Declines podiatry JEANNA due Niece to reschedule [facility] endo appointment Assessment & Plan (01/28/2023 6:32 AM EDT): Labs due Declines podiatry JEANNA due Niece to reschedule [facility] endo appointment 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/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 2 Assessment & Plan (01/27/2024 4:34 PM EDT): Historic, now on Eliquis for anticoagulation for aortic valve replacement Assessment & Plan (09/16/2023 4:51 PM EST): Historic, now on Eliquis for anticoagulation for aortic valve replacement Stage 3a chronic kidney disease 06/09/2022 Assessment & Plan (01/27/2024 4:32 PM EDT): Dariel zelaya Does not have nephrology visit yet Assessment & Plan (01/28/2023 6:32 AM EDT): Dariel zelaya Does not have nephrology Anxiety 06/21/2021 Chronic low back pain 06/21/2021 Assessment & Plan (09/16/2023 4:52 PM EST): Pt seeing pain management, call to schedule CON Assessment & Plan (04/02/2023 10:02 AM EDT): Xray today Topical medications may be best for pt Home PT? Chronic rheumatic heart disease 06/21/2021 Depression 06/21/2021 Assessment & Plan (04/10/2023 2:26 PM EDT): Assessment: Floridalma was engaged with active reflective listening and open-ended questions. Assessed symptoms, risks, and social supports with direct questions. Discussed current symptoms intensity and frequency. Emotions were normalized and validated. She identified talking with therapist as coping mechanisms and her niece as protective factors. Provided psychoeducation around Coping skills for depression and anxiety. Discussed Med.Management, she agreed to referral. Provided education around integrated medicine and the options of follow up BE's as needed. Provided contact information should questions or concerns arise. Plan: Floridalma will engage in effective coping mechanisms to manage depressive and anxiety sxs. She will be referred to [facility] Psych[facility]. Currently has a therapist that goes to her house, Neetu Cisse. Patient with She reported sxs such as over sleeping, lack of motivation, little energy, irritability, fearfulness, feeling bad about herself. She denies SI, HI, or self-harm. Living with niece Kiki, who is her ocular care aide. Loss on 2020, and then move from [place] to here. Connected with therapist. Patient will benefit from med. Management. At this time Floridalma Campos meets criteria for Visit Diagnoses: Problem List Items Addressed This Visit Other Depressive disorder Patient ready to address current needs Yes Strengths include Support from ocular care aide, connected with therapist. PLAN: 1. Follow up with [facility]: Not recommended for follow-up 2. Patient goal is to obtain treatment to address her depression 3. Behavioral Recommendations a. Med. Management b. 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 Tremor 06/21/2021 Assessment & Plan (01/27/2024 4:39 PM EDT): Essential tremor (both of her parents had it as well) - increase Propranolol to 120mg ER in the morning - HR 97 today, can titrate up to 360mg of Propranolol Assessment & Plan (10/02/2023 6:36 AM EST): Essential tremor (both of her parents had it as well) - switch to Propranolol 80mg ER in the morning - stop Metoprolol Resolved Problems Problem Noted Date Diagnosed Date Resolved Date Carbon dioxide retention 10/02/202301/2024 Assessment & Plan (10/02/2023 6:38 AM EST): Will check PFTs Class 1 obesity 04/12/2023 08/24/2024 Wheezing 01/28/2023 07/24/2023 Assessment & Plan (01/28/2023 6:34 AM EDT): Will treat with doxycycline and prednisone for 5 more days Call at end of treatment course if not improving To re=present to clinic if respiratory status worsens Encounters Date Type Department Care Team Description 12/21/2024 2:00 PM EST Office Visit [facility] [address] [place] [address] Josephine Romo MD Type 2 diabetes mellitus with stage 3 chronic kidney disease, with long-term current use of insulin, unspecified whether stage 3a or 3b CKD (CMS/HCC) 12/21/2024 Travel 12/09/2024 Patient Outreach [address] [address] Josephine Romo MD Pre-visit Planning ((Unable to reach for PVP screening and or LVM)) 11/30/[address] [address] Josephine Romo MD Results 11/25/2024 Refill [facility] [address] [place] [phone] Josephine Romo MD 10/23/[address] [address] Maddison Aquino, [place] Insulin directions 10/23/2024 Orders Only [address] [id number] Josephine Romo MD Type 2 diabetes mellitus with hyperglycemia, with long-term current use of insulin ([facility]) 10/22/[address] [address] Josephine Romo MD Medication Question 10/22/2024 Refill [facility] [address] [place] [phone] Josephine Romo MD Type 2 diabetes mellitus with stage 3 chronic kidney disease, with long-term current use of insulin, unspecified whether stage 3a or 3b CKD ([facility]) 10/22/[address] [address] Tamiko Juan [place] Care Coordination 10/12/[address] [phone] Josephine Romo MD Incoming Fax from [facility] from Last 3 Months Immunizations Name Administration Dates Next Due Influenza High-dose Quadriva lent Preservative Free 09/16/2023,07/16/2022,06/10/2021 Influenza, High Dose Seasona l, Preservative Free 08/21/2024 Moderna Covid-19 Vaccine 12+ 01/23/2021,12/27/19 21 Pneumococcal Conjugate PCV 20 07/16/2022 Tdap 10/02/2021,06/21/2021 Zoster, Recombinant 07/16/2022,07/16/2021 Social History Tobacco Use Types Packs/Day Years [...] Orientation Straight 08/20/2022 10 :39 AM EDT Last Filed Vital Signs Vital Sign Reading Time Taken Comments Blood Pressure 119/66 12/21/2024 2:06 PM EST Pulse 68 12/21/2024 2:06 PM EST Temperature 36.9 ??C (98.5 ??F) 12/21/2024 2:06 PM ES T Respiratory Rate 17 12/21/2024 2:06 PM EST Oxygen Saturation 96% 08/21/2024 1:43 PM EDT Inhaled Oxygen Concentration - - Weight 76.3 kg (168 lb 3.2 oz) 12/21/2024 2:06 P M EST Height 162.6 cm (5' 4 ) 12/21/2024 2:06 PM EST Body Mass Index 28.87 12/21/2024 2:06 PM EST Plan of Treatment Health Maintenance Due Date Last Done Comments Eye Exam 1955 Alcohol/Substance Use Screening 1956 RSV Patients and Patients Aged 60 years or older (1 - 1-dose 75+ series) 2019 SDOH Screening 01/26/2024 01/25/2023 Depression Screening 04/10/2024 04/10/2023, 04/10/20 23 COVID-19 Vaccine ( season) 2024 10/19/2021, 01/23/2021, 12/26/2020 Diabetes: Foot Exam 09/16/2024 09/16/2023, 09/16/2023, 09/16/2023, Additional history exists Diabetes: Hemoglobin A1C 03/23/2025 025, 08/21/2024, 01/27/2024, Additional history exists Lipid Panel 12/21/2025 12/21/2024, 06/07/2022 Tobacco Screening 12/21/2025 12/21/2024 DTaP/Tdap/Td Vaccines (3 - Td or Tdap) 10/02/2031 10/02/2021, 06/21/2021 Pneumococcal Vaccine: 50+ Years Completed 07/16/2022 Zoster Vaccines Completed 07/16/2022, 07/16/2021 Influenza Vaccine Completed 08/21/2024, , 07/16/2022, Additional history exists HIB Vaccines Aged Out No longer eligi ble based on patient's age to complete this topic HPV Vaccines Aged Out No longer eligi ble based on patient's age to complete this topic Hepatitis A Vaccines Aged Out No long er eligible based on patient's age to complete this topic Hepatitis B Vaccines Aged Out No long er eligible based on patient's age to complete this topic IPV Vaccines Aged Out No longer eligi ble based on patient's age to complete this topic Meningococcal Vaccine Aged Out No dominic aline eligible based on patient's age to complete this topic RSV under 20 months Aged Out No longe r eligible based on patient's age to complete this topic Rotavirus Vaccines Aged Out No longer eligible based on patient's age to complete this topic Goals Goal Patient Goal Type Associated Problems Recent Progress Patient-Stated? Author Blood Pressure < 140/90 Blood Pressure 119/66(2024 2:06 PM EST) No Leeann Serna PharmD Hemoglobin A1c < 8 Result Component 8.3( 2:12 PM EST) No Leeann Serna PharmD Procedures Procedure Name Priority Date/Time Associated Diagnosis Comments CBC WITH AUTO DIFFERENTIAL Routine 12/21/2024 2:55 PM EST Type 2 diabetes mellitus with stage 3 chronic kidney disease, with long-term current use of insulin, unspecified whether stage 3a or 3b CKD (CMS/HCC) LIPID PANEL, STANDARD Routine 12/21/2024 2:55 PM [...] whether stage 3a or 3b CKD (CMS/HCC) TSH W/REFLEX TO FT4 Routine 12/21/2024 2 :55 PM EST Acquired hypothyroidism POCT GLYCATED HEMOGLOBIN, TOTAL Routine 12/21/2024 2:12 [...] whether stage 3a or 3b CKD (CMS/HCC) from Last 3 Months Results * TSH W/Reflex to FT4 (12/21/2024 2:55 PM EST) TSH reflex Free T4 2.00 0.32 - 4.0 uIU/mL [facility] Blood Venous blood specimen / Unknown 12/21/2024 2:55 PM EST 12/21/2024 4:20 PM EST us Josephine Romo MD LAB BLOOD ORDERABLES Final Res ult [facility] [address] [place] [phone] * (ABNORMAL) CBC auto differential (12/21/2024 2:55 PM EST) [facility] White Blood Count 7.5 4.8 - 10.8 X10*3/uL [facility] Red Blood Count 4.01(L) 4.20 - 5.50 X10*6/uL [facility] Hemoglobin 11.3(L) 12.0 - 16.0 g/dl [facility] Hematocrit 35.0(L) 37.0 - 47.0 % [facility] Mean Corpuscular Volume 87.3 80.0 - 98.0 fL [facility] Mean Corpuscular Hemoglobin 28.2 27.0 - 33.0 pg [facility] Mean Corpuscular HGB Conc 32.3 31.0 - 35.0 g/dl [facility] Red Cell Distribution Width 12.4 11.0 - 16.0 % [facility] Platelet Count 294 160 - 400 X10*3/uL [facility] Mean Platelet Volume 9.7 9.4 - 12.3 fL [facility] Neutrophils Percent Auto 71.7 45 - 73 % [facility] Imm Gran Pct Auto 0.4 0.0 - 0.4 % [facility] Lymphocytes Percent Auto 17.4(L) 20 - 40 % [facility] Monocytes Percent Auto 6.1 2 - 11 % [facility] Eosinophils Percent Auto 4.1(H) 0 - 4 % [facility] Basophils Percent Auto 0.3 0 - 2 % [facility] NRBC Pct Auto 0.0 0.0 - 0.2 /100WBC [facility] Neutrophils Absolute Auto 5.4 2.0 - 8.3 x10*3/uL [facility] Imm Gran Abs Auto 0.03 0.00 - 0.03 X10*3/uL [facility] Lymphocytes Absolute Auto 1.3 1.2 - 4.9 X10*3/uL [facility] Monocytes Absolute Auto 0.5 0.1 - 1.2 X10*3/uL [facility] Eosinophils Absolute Auto 0.3 0.0 - 0.4 X10*3/uL [facility] Basophils Absolute Auto 0.0 0.0 - 0.2 X10*3/uL [facility] NRBC Abs Auto 0.000 0.0 - 0.012 X10*3/uL [facility] Blood Venous blood specimen / Unknown 12/21/2024 2:55 PM EST 12/21/2024 4:20 PM EST us Josephine Romo MD LAB BLOOD ORDERABLES Final Res ult [facility] [address] [place] [phone] * (ABNORMAL) Lipid Panel, Standard (12/21/2024 2:55 PM EST) Triglycerides 163(H) <150 mg/dL [facility] Comment:Desirable Triglyceri de: less than 150 mg/dLBorderline High Triglyceride 150-199 mg/dLHigh Triglyceride: 200-499 mg/dLVery High Triglyceride: greater than or equal to 5OO mg/dL Cholesterol 187 <200 mg/dL [facility] Comment:Desirable Cholestero l: less than 200 mg/dLBorderline High Cholesterol: 200-239 mg/dLHigh Cholesterol: greater than 239 mg/dL LDL Cholesterol Calculated 116(H) <100 mg/dL [facility] Comment:Desirable LDL: less than 100 mg/dLNear Optimal/Above Optimal LDL: 110- 129 mg/dLBorderline High LDL: 130-159 mg/dLHigh LDL: 160-189 mg/dLVery High LDL: greater than or equal to 190 mg/dL HDL Cholesterol 39(L) >40 mg/dL [facility] Comment:Desirable HDL: great er than 40 mg/dL Note: This HDL assay may give artificially low results in patients with liver disease. Blood Venous blood specimen / Unknown 12/21/2024 2:55 PM EST 12/21/2024 4:20 PM EST us Josephine Romo MD LAB BLOOD ORDERABLES Final Res ult [facility] [address], [place] [phone] * (ABNORMAL) Comprehensive Metabolic Panel (12/21/2024 2:55 PM EST) Sodium 140 135 - 145 mmol/L [facility] Potassium 3.9 3.3 - 5.1 mmol/L [facility] Chloride 101 96 - 108 mmol/L [facility] Carbon Dioxide 32(H) 22 - 29 mmol/L [facility] Anion Gap 11(L) 12 - 20 [facility] Urea Nitrogen (BUN) 16 9 - 16 mg/dL [facility] Creatinine, Serum 0.91 0.5 - 1.4 mg/dL [facility] Estimated Glomerular Filt Rate 59 [facility] Comment:Chronic Kidney Disea se: Estimated GFR < 60 mL/min/[id number] Kidney Disease: Estimated GFR < 15 mL/min/1.73m2 Glucose 102 60 - 115 mg/dL [facility] Calcium 9.1 8.4 - 10.2 mg/dL [facility] Bilirubin, Total 0.4 0.0 - 1.0 mg/dL [facility] Aspartate Amino Transferase 21 5 - 31 U/L [facility] Alanine Aminotransferase 10 0 - 31 U/L [facility] Total Protein 7.4 6.5 - 8.0 g/dL [facility] Albumin Level 4.0 3.5 - 5.0 g/dL [facility] Alkaline Phosphatase 99 39 - 117 U/L [facility] Blood Venous blood specimen / Unknown 12/21/2024 2:55 PM EST 12/21/2024 4:20 PM EST Josephine Romo MD LAB BLOOD ORDERABLES Final Res ult [facility] [address] [place] [phone] * (ABNORMAL) POCT HGB A1C (12/21/2024 2:12 PM EST) Hemoglobin A1C 8.3(A) 4.0 - 6.0 % [employer] Lot # [id number] Lot# Expiration Date [id number] Blood 12/21/2024 2:12 PM EST Result [facility] Josephine Romo MD POINT OF CARE TEST ENTER/EDIT ORDERABLES Final Result * POCT Glucose (12/21/2024 2:05 PM EST) Glucose Blood, POC 126 60 - 200 mg/dL [employer] Lot # [id number] Lot# Expiration Date [id number] Blood Capillary blood specimen / Unknown 12/21/2024 2:05 PM EST Result [facility] Josephine Romo MD POINT OF CARE TEST ENTER/EDIT ORDERABLES Final Result from Last 3 Months Insurance [facility] Care Teams Cardiovascular Rn Relationship Specialty Start Date End Date Josephine Romo MD [address] [place] [address] [id number] PCP - General Family Medicine 06/12/22 [employer] 03/06/23
--- OUTSIDE RECORDS SUMMARY | 2024-12-21 17:45 | XMS_ITS | Clinical Summary ---
Author Organization [facility] Address [address] [address] Phone Care Team Providers Care Ship Fitter Name Role Phone Bria Hi Primary Care Provider Allergies Active Allergy Reactions Criticality Noted Date Comments Aspirin Rash Low 06/28/2022 Furosemide Low 09/24/2022 Other reaction(s): itching Heparin 06/28/2022 Metformin 06/28/2022 Oxycodone 09/24/2022 Other reaction(s): Delirium/hallucination Penicillins 06/28/2022 Medications lidocaine (XYLOCAINE) 5 % ointment Apply topically if needed for mild pain Active gabapentin (NEURONTIN) 100 MG capsule Take 100 mg by mouth in the morning and 100 mg in the evening and 100 mg before bedtime. Active pantoprazole (PROTONIX) 40 MG EC tablet Take 40 mg by mouth 1 (one) time each day before breakfast Do not crush, chew, or split. Active insulin glargine (LANTUS) 100 UNIT/ML injection Inject 100 Units under the skin every night Active hydrOXYzine (ATARAX) 10 MG tablet Take 10 mg by mouth 2 (two) times a day if needed for itching Active DULoxetine (CYMBALTA) [address] capsule Take 30 mg by mouth 1 (one) time each day Do not crush or chew. Active insulin aspart protamine-insu joseph aspart (NovoLOG 70/30) (70-30) 100 UNIT/ML injection Inject 100 Units under the skin in the morning and 100 Units in the evening. Inject before meals. Active Insulin Aspart (NovoLOG) 100 UNIT/ML solution Inject as directed Active propranolol LA (INDERAL LA) 80 MG 24 hr capsule Take 80 mg by mouth 1 (one) time each day Do not crush, chew, or split. Active docusate sodium (COLACE) 100 MG capsule Take 100 mg by mouth in the morning and 100 mg in the evening. Active traZODone (DESYREL) 50 MG tablet Take 50 mg by mouth every night Active Cholecalcifero l (Vitamin D3) 50 MCG (1999 UT) tabletIndicati ons:Stage 3a chronic kidney disease (HCC),Vitamin D deficiency, not otherwise specified Take 2,000 Units by mouth 1 (one) time each day 30 tablet 11 05/20/20 24 025 Active ferrous gluconate (FERGON) 324 (38 Fe) MG tabletIndicati ons:Iron Deficiency Anemia Take 324 mg by mouth 1 (one) time each day with breakfast Active torsemide (DEMADEX) 20 MG tabletIndicati ons:Stage 3a chronic kidney disease (HCC),Hyperten rebecca,Bilateral lower leg edema TAKE 2 TABLETS BY MOUTH ONCE DAILY IN THE MORNING 60 tablet 11 11/25/19 25 Active torsemide (DEMADEX) 20 MG tabletIndicati ons:Stage 3a chronic kidney disease (HCC),Hyperten rebecca,Bilateral lower leg edema Take 2 tablets (40 mg total) by mouth 1 (one) time each day 60 tablet 11 11/20/19 24 025 Discontinued Active Problems Problem Noted Date Diagnosed Date Hypertension 05/20/2024 Bilateral lower leg edema 05/20/2024 Vitamin D deficiency, not otherwise specified Anemia in chronic kidney disease 05/20/2024 Chronic kidney disease 06/28/2022 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.] on file Sexual Orientation Not on file Last Filed Vital Signs Vital Sign Reading Time Taken Comments Blood Pressure 120/60 05/20/2024 1:09 PM EDT Pulse 91 05/20/2024 1:09 PM EDT Temperature - - Respiratory Rate - - Oxygen Saturation 98% 11/20/2023 10:48 AM EST Inhaled Oxygen Concentration - - Weight 80.3 kg (177 lb) 05/20/2024 1:09 PM EDT Height - - Body Mass Index - - Plan of Treatment Health Maintenance Due Date Last Done Comments Diabetes: Ophthalmology Exam 06/28/2022 Diabetes: Pedal Pulse Checked 06/28/2022 Diabetes: Sensory Foot Exam 06/28/2022 Diabetes: Visual Foot Exam 06/28/2022 Diabetes: Hemoglobin A1C 11/21/2024 024, 01/27/2024 Pneumococcal Vaccine: 65+ Years Completed 07/16/2022 Influenza Vaccine Completed 08/21/2024 Hepatitis B Vaccine Aged Out No longe r eligible based on patient's age to complete this topic Insurance [facility] [place] [id number] [employer] [place] [id number] Care Teams Ship Fitter Relationship Specialty Start Date End Date Bria Hi PCP - General Family Medicine 06/13/22
--- OUTSIDE RECORDS SUMMARY | 2024-12-21 17:45 | XMS_ITS | Encounter Summary ---
Author Organization [employer] Address [address] [place] [address] Care Team Providers Care Director [employer] Name Role Phone Josephine Romo MD Primary Care Provider [phone] Encounter Details Date Type Department Care Team ([facility] st Contact Info) Description 11/12/2022 Orders Only [facility] [address] [place], [place] [phone] Althea Del Valle LPN Social History Tobacco Use Types Packs/Day Years [...] on filedocumented in this encounter Care Teams Director [employer] Relationship Specialty Start Date End Date Josephine Romo MD [address] [place] [id number] PCP - General Family Medicine 06/12/22 [employer] 03/06/23 documented as of this encounter
--- OUTSIDE RECORDS SUMMARY | 2024-12-21 17:45 | XMS_ITS | Encounter Summary ---
Author Organization [employer] Address [address] [place] [address] Care Team Providers Care Payment Poster Name Role Phone Josephine Romo MD Primary Care Provider [phone] Reason for Visit * Reason Comments Med Refill Encounter Details Date Type Department Care Team ([facility] st Contact Info) Description 11/25/2024 Refill [facility] MEDICINE [address] [place], [place] [phone] Josephine Romo MD [address] [place], [place] [phone] Social History Tobacco Use Types Packs/Day Years [...] documented as of this encounter Care Teams Payment Poster Relationship Specialty Start Date End Date Josephine Romo MD [address] [place] [id number] PCP - General Family Medicine 06/12/22 [facility] 03/06/23 documented as of this encounter
== END 2024-12-21 14:53 | disposition home or self-care (01) ==
LOC: HO.HHCL 14:52
PROVIDERS: Visit Provider General Practice
DX: E11.22 Type 2 diabetes mellitus with diabetic chronic kidney disease (principal); N18.30 Chronic kidney disease, stage 3 unspecified; Z79.4 Long term (current) use of insulin; E03.9 Hypothyroidism, unspecified
CPT/HCPCS: 36415; 80053; 80061; 84443; 85025